=== PATIENT | male | born 1960 | race Caucasian/White ===

== ENCOUNTER 2016-05-09 10:35 | Emergency (ER) | payer BC ==
[2016-05-09 10:58] VITALS: RESP 18; TEMP 98.4
[2016-05-09] MEDS ORDERED: SODIUM CHLORIDE 0.9% 1,000 ML IV STA ×2 (11:24)
[2016-05-09] MEDS ORDERED: ONDANSETRON 4 MG/2 ML VIAL IVP STA (11:24)
--- NOTE | 2016-05-09 11:29 | ED ---
General Adult HPI - General Chief complaint: Nausea/Vomiting/Diarrhea Stated complaint: congestion Time Seen by Provider: 05/09/16 11:17 Source: patient, RN notes reviewed Mode of arrival: ambulatory Limitations: no limitations - History of Present Illness Initial comments: Patient 55-year-old male who presents emergency room today with a chief complaint of symptoms of nausea vomiting diarrhea over the last 5 days. Also admits to cough congestion that she started 1 day ago. Patient denies any abdominal pain. He denies any signs of blood in the stool. Admits that he did see some blood and sputum yesterday. States sputum is also been green in color. He denies any other complaints. Patient denies any recent fever, chills , shortness of breath, chest pain, back pain,numbness or tingling, dysuria or hematuria, constipation, headaches or visual changes, or any other complaints. - Related Data Home Medications Medication Instructions Recorded Confirmed Atenolol [Tenormin] 100 mg PO DAILY 05/09/16 05/09/16 Cholecalciferol [Vitamin D3] 1,000 unit PO DAILY 05/09/16 05/09/16 Citalopram Hydrobromide [CeleXA] 40 mg PO DAILY 05/09/16 05/09/16 Ibuprofen [Motrin] 800 mg PO Q8HR PRN 05/09/16 05/09/16 Multivitamins, Thera [Multivitamin 1 tab PO DAILY 05/09/16 05/09/16 (formulary)] Tamsulosin [Flomax] 0.4 mg PO DAILY 05/09/16 05/09/16 Previous Rx's Medication Instructions Recorded Ciprofloxacin HCl [Cipro] 500 mg PO Q12HR #20 day 05/09/16 Ondansetron Odt [Zofran ODT] 4 mg PO Q8HR PRN #20 tab 05/09/16 Allergies Allergy/AdvReac Type Severity Reaction Status Date / Time No Known Allergies Allergy Unverified 05/09/16 11:43 Review of Systems ROS Statement: Those systems with pertinent positive or pertinent negative responses have been documented in the HPI. ROS Other: All systems not noted in ROS Statement are negative. Past Medical History Additional Past Medical History / Comment(s): hard of hearing History of Any Multi-Drug Resistant Organisms: None Reported Additional Past Surgical History / Comment(s): kidney, carpal tunnel Past Psychological History: No Psychological Hx Reported Smoking Status: Never smoker Past Alcohol Use History: None Reported Past Drug Use History: None Reported General Exam - General Exam Comments Initial Comments: General: The patient is awake and alert, in no distress, and does not appear acutely ill. Eye: Pupils are equal, round and reactive to light, extra-ocular movements are intact. No nystagmus. There is normal conjunctiva bilaterally. No signs of icterus. Ears, nose, mouth and throat: There are moist mucous membranes and no oral lesions. Neck: The neck is supple, there is no tenderness or JVD. Cardiovascular: There is a regular rate and rhythm. No murmur, rub or gallop is appreciated. Respiratory: Lungs are clear to auscultation, respirations are non-labored, breath sounds are equal. No wheezes, stridor, rales, or rhonchi. Gastrointestinal: Soft, non-distended, non-tender abdomen without masses or organomegaly noted. There is no rebound or guarding present. No CVA tenderness. Bowel sounds are unremarkable. Musculoskeletal: Normal ROM, no tenderness. Strength 5/5. Sensation intact. Pulses equal bilaterally 2+. Neurological: A&O x 3. CN II-XII intact, There are no obvious motor or sensory deficits. Coordination appears grossly intact. Speech is normal. Skin: Skin is warm and dry and no rashes or lesions are noted. Psychiatric: Cooperative, appropriate mood & affect, normal judgment. Limitations: no limitations Course Vital Signs 05/09/16 05/09/16 10:54 12:42 Temperature 98.4 F Pulse Rate 77 66 Respiratory 18 18 Rate Blood Pressure 117/75 116/67 O2 Sat by Pulse 97 95 Oximetry Medical Decision Making - Medical Decision Making Patient's x-rays reviewed are unremarkable. Patient's labs been reviewed no elevated white count. Patient's analysis shows 9 white cells. Patient's abdomen soft nontender. Patient resting comfortably in the stretcher. Patient given nausea medication go home with. Please use [id number] Imodium. Also started on Cipro cover for urinary tract infection versus prostatitis. Advised follow-up family doctor over the next 2 days or return here in the emergency room if any symptoms increase worsen or for any other concerns. - Lab Data Result diagrams: 05/09/16 11:15 05/09/16 11:15 Lab Results 05/09/16 05/09/16 05/09/16 Range/Units 11:15 11:15 11:45 WBC 5.1 (3.8-10.6) k/uL RBC 4.56 (4.30-5.90) m/uL Hgb 15.2 (13.0-17.5) gm/dL Hct 43.7 (39.0-53.0) % MCV 95.9 (80.0-100.0) fL MCH 33.4 (25.0-35.0) pg MCHC 34.8 (31.0-37.0) g/dL RDW 13.2 (11.5-15.5) % Plt Count 186 (150-450) k/uL Neutrophils % 69 % Lymphocytes % 21 % Monocytes % 6 % Eosinophils % 1 % Basophils % 1 % Neutrophils # 3.5 (1.3-7.7) k/uL Lymphocytes # 1.1 (1.0-4.8) k/uL Monocytes # 0.3 (0-1.0) k/uL Eosinophils # 0.0 (0-0.7) k/uL Basophils # 0.1 (0-0.2) k/uL Sodium 139 (137-145) mmol/L Potassium 4.1 (3.5-5.1) mmol/L Chloride 105 (98-107) mmol/L Carbon Dioxide 26 (22-30) mmol/L Anion Gap 8 mmol/L BUN 18 (9-20) mg/dL Creatinine 1.01 (0.66-1.25) mg/dL Est GFR (MDRD) Af Amer >60 (>60 ml/min/1.73 sqM) Est GFR (MDRD) Non-Af >60 (>60 ml/min/1.73 sqM) Glucose 89 (74-99) mg/dL Calcium 8.7 (8.4-10.2) mg/dL Total Bilirubin 0.4 (0.2-1.3) mg/dL AST 35 (17-59) U/L ALT 36 (21-72) U/L Alkaline Phosphatase 73 (38-126) U/L Total Protein 6.7 (6.3-8.2) g/dL Albumin 3.7 (3.5-5.0) g/dL Amylase 43 (30-110) U/L Lipase 83 (23-300) U/L Urine Color Yellow Urine Appearance Clear (Clear) Urine pH 5.5 (5.0-8.0) Ur Specific Freeman 1.017 (1.001-1.035) Urine Protein 1+ H (Negative) Urine Glucose (UA) Negative (Negative) Urine Ketones Negative (Negative) Urine Blood Trace H (Negative) Urine Nitrite Negative (Negative) Urine Bilirubin Negative (Negative) Urine Urobilinogen <2.0 (<2.0) mg/dL Ur Leukocyte Esterase Negative (Negative) Urine RBC 3 (0-5) /hpf Urine WBC 9 H (0-5) /hpf Urine Mucus Occasional H (None) /hpf Disposition Clinical Impression: Nausea vomiting and diarrhea Disposition: HOME SELF-CARE Condition: Good Instructions: Acute Nausea and Vomiting (ED) Additional Instructions: Please use medication as discussed. Please follow-up with family doctor in the next 2 days of symptoms have not improved. Please return to emergency room if the symptoms increase or worsen or for any other concerns. Prescriptions: Ciprofloxacin HCl [Cipro] 500 mg PO Q12HR #20 day Ondansetron Odt [Zofran ODT] 4 mg PO Q8HR PRN #20 tab PRN Reason: Nausea Time of Disposition: 13:22
[2016-05-09 11:49] LABS: Basophils # (A) 0.1 k/uL (0-0.2); Basophils % (A) 1 %; CH 33.6; CHCM 35.2; Eosinophils % (A) 1 %; HCT 43.7 % (39.0-53.0); HDW 2.76; HGB 15.2 gm/dL (13.0-17.5); Luc # (Auto) 0.14; Luc % (Auto) 3; Lymphocytes # (A) 1.1 k/uL (1.0-4.8); Lymphocytes % (A) 21 %; MCH 33.4 pg (25.0-35.0); MCHC 34.8 g/dL (31.0-37.0); MCV 95.9 fL (80.0-100.0); Mean Platelet Volume 7.5; Monocytes # (A) 0.3 k/uL (0-1.0); Monocytes % (A) 6 %; Neutrophils # (A) 3.5 k/uL (1.3-7.7); Neutrophils % (A) 69 %; RBC 4.56 m/uL (4.30-5.90); RDW 13.2 % (11.5-15.5); WBC 5.1 k/uL (3.8-10.6); WBC (Perox) 5.11
[2016-05-09 12:02] LABS: Appearance,Urine Clear (Clear); Bilirubin,Urine Negative (Negative); Glucose,Urine (UA) Negative (Negative); Ketones,Urine Negative (Negative); Leukocyte Esterase,Urine Negative (Negative); Mucus,Urine Occasional /hpf; Nitrite,Urine Negative (Negative); PH, Urine 5.5 (5.0-8.0); Particle Count 3728; Protein,Urine 1+ (Negative); RBC,Urine 3 /hpf (0-5); Specific Gravity,Urine 1.017 (1.001-1.035); UA Billing (MACRO vs. MICRO) MICRO; Urobilinogen,Urine <2.0 mg/dL (<2.0); WBC,Urine 9 /hpf (0-5)
[2016-05-09 12:06] LABS: ALT 36 U/L (21-72); AST 35 U/L (17-59); Alkaline Phosphatase 73 U/L (38-126); Amylase 43 U/L (30-110); Anion Gap 8 mmol/L; Blood Urea Nitrogen 18 mg/dL (9-20); Calcium 8.7 mg/dL (8.4-10.2); Carbon Dioxide 26 mmol/L (22-30); Chloride 105 mmol/L (98-107); Glucose 89 mg/dL (74-99); Non-African American GFR(MDRD) >60 (>60 ml/min/1.73 sqM); Potassium 4.1 mmol/L (3.5-5.1); Sodium 139 mmol/L (137-145); Total Bilirubin 0.4 mg/dL (0.2-1.3); Total Protein 6.7 g/dL (6.3-8.2)
[2016-05-09 12:43] VITALS: BP 116/67; PULSE 66
--- NOTE | 2016-05-09 12:54 | XR ---
EXAMINATION TYPE: XR chest 2V DATE OF EXAM: 05/09/2016 12:42 PM COMPARISON: NONE TECHNIQUE: PA and lateral views submitted. HISTORY: Nausea and vomiting FINDINGS: The lungs are clear and there is no pneumothorax, pleural effusion, or focal pneumonia. Biapical pl eural thickening. IMPRESSION: 1. No acute process.
--- NOTE | 2016-05-09 12:56 | XR ---
EXAMINATION TYPE: XR KUB DATE OF EXAM: 05/09/2016 12:42 PM COMPARISON: NONE HISTORY: Nausea and vomiting TECHNIQUE: One view abdominal series FINDINGS: The osseous structures are intact. The bowel gas pattern is nonspecific. 6 mm calcification right up per quadrant could be related the kidney or gallbladder. Scoliotic curvature. IMPRESSION: 1. Nonspecific abdomen. 6 mm right upper quadrant calcification may be related to a kidney stone or gallstone. Correlate clinically.
== END 2016-05-09 13:32 | disposition home or self-care (01) ==
LOC: EC 10:35
DX: R11.2 Nausea with vomiting, unspecified (principal); R19.7 Diarrhea, unspecified; Z79.899 Other long term (current) drug therapy
CPT/HCPCS: 99284; 96374; 96361 ×2; 36415; 80053; 82150; 83690; 85025; 81001; 71020; 74000; J2405

== ENCOUNTER 2017-10-01 07:52 | Day surgery (SDC) | payer BC ==
[2017-09-29 12:25] VITALS: BMI 25.8
[~2017-10-01 07:52] MED LIST: LACTATED RINGERS 1,000 ML IV SCH; LIDOCAINE 1% 20 ML VIAL (10MG/ML) FOR IV START INTRADERMA PRN
[2017-10-01 08:58] VITALS: TEMP 97.2
[2017-10-01] MEDS ORDERED: PROPOFOL 10 MG/ML 20 ML VIAL IV ONE (09:49)
--- NOTE | 2017-10-01 10:08 | P.PCN ---
Date of Procedure: 10/01/17 Procedure(s) Performed: BRIEF HISTORY: Patient is a 57-year-old pleasant male, scheduled for an elective colonoscopy as a part of variation of prior history of colon polyps and family history of colon cancer. His father was diagnosed with colon cancer at age 75. PROCEDURE PERFORMED: Colonoscopy. PREOPERATIVE DIAGNOSIS: History of colon polyps and family history of colon cancer. IV sedation per Anesthesia. PROCEDURE: After informed consent was obtained, the patient, was brought into the endoscopy unit. IV sedation was administered by Anesthesia under continuous monitoring. Digital rectal examination was normal. Initially the Olympus CF- 160 flexible video colonoscope was then inserted in the rectum, gradually advanced into the cecum without any difficulty. Careful examination was performed as the scope was gradually being withdrawn. Ileocecal valve and the appendiceal orifice were visualized and appeared normal. Prep was excellent. Mucosa of the cecum, ascending colon, transverse colon, descending colon, sigmoid colon, and rectum appeared normal. Retroflexion was performed in the rectum and no lesions were seen. The patient tolerated the procedure well. IMPRESSION: Normal-appearing colon from rectum to cecum with no evidence of colorectal neoplasia. RECOMMENDATIONS: Findings of this examination were discussed with the patient as well as his family. He was advised to have a repeat surveillance colonoscopy in 5 years from now because of the prior history of colon polyps and family history of colon cancer.
[2017-10-01 10:12] VITALS: RESP 16
[2017-10-01 10:39] VITALS: BP 124/73; PULSE 67
== END 2017-10-01 10:44 | disposition home or self-care (01) ==
LOC: ORWHC2ENDO 07:52
PROVIDERS: ATTEND Internal Medicine Gastroenterology
DX: Z12.11 Encounter for screening for malignant neoplasm of colon (principal); Z86.010 Personal history of colon polyps; Z80.0 Family history of malignant neoplasm of digestive organs; Z79.899 Other long term (current) drug therapy; I10 Essential (primary) hypertension; Z87.442 Personal history of urinary calculi; N42.9 Disorder of prostate, unspecified; F41.9 Anxiety disorder, unspecified; F32.9 Major depressive disorder, single episode, unspecified; H91.90 Unspecified hearing loss, unspecified ear
CPT/HCPCS: J2704; G0105; 45378

== ENCOUNTER 2019-06-11 18:24 | Emergency (ER) | payer BC ==
[2019-06-11] MEDS ORDERED: LIDOCAINE 1% INJ 10MG/ML (20 ML MDV) SQ ONE (18:45)
[2019-06-11] MEDS ORDERED: DIPH,PERTUS(ACELL)TETVAC-LF 0.5 ML VIAL IM ONE (18:45)
--- NOTE | 2019-06-11 18:45 | ED ---
Wound/Laceration HPI - General Chief Complaint: Wound/Laceration Stated Complaint: Finger laceration Time Seen by Provider: 06/11/19 18:37 Source: patient Mode of arrival: ambulatory Limitations: no limitations - History of Present Illness Initial Comments: Patient is a 58-year-old male presenting to emergency Department with complaints of a laceration to his left thumb. Patient states he was cutting laminate tiles when his utility knife slipped and he cut his left thumb. He denies being on blood thinners. Bleeding is controlled at this time. He does not remember his last tetanus vaccine. He denies fever or chills. He has no other complaints at this time. - Related Data Home Medications Medication Instructions Recorded Confirmed Citalopram Hydrobromide [CeleXA] 40 mg PO DAILY 05/09/16 10/01/17 Multivitamins, Thera [Multivitamin 1 tab PO DAILY 05/09/16 10/01/17 (formulary)] Tamsulosin [Flomax] 0.4 mg PO DAILY 05/09/16 10/01/17 Anacin Af 1 tab PO DAILY PRN 09/29/17 10/01/17 Metoprolol Tartrate [Lopressor] 100 mg PO DAILY 09/29/17 10/01/17 Previous Rx's Medication Instructions Recorded Cephalexin [Keflex] 500 mg PO Q6HR 3 Days #12 cap 06/11/19 Allergies Allergy/AdvReac Type Severity Reaction Status Date / Time No Known Allergies Allergy Verified 06/11/19 18:30 Review of Systems ROS Statement: Those systems with pertinent positive or pertinent negative responses have been documented in the HPI. ROS Other: All systems not noted in ROS Statement are negative. Past Medical History Past Medical History: Hearing Disorder / Deafness, Hypertension, Prostate Disorder Additional Past Medical History / Comment(s): hard of hearing, kidney stones, occasional rectal bldg History of Any Multi-Drug Resistant Organisms: None Reported Past Surgical History: Orthopedic Surgery Additional Past Surgical History / Comment(s): cystoscopy w/stents, carpal tunnel Past Anesthesia/Blood Transfusion Reactions: No Reported Reaction Past Psychological History: Anxiety, Depression Smoking Status: Never smoker Past Alcohol Use History: None Reported Past Drug Use History: None Reported - Past Family History Mother Family Medical History: No Reported History General Exam - General Exam Comments Initial Comments: GENERAL: Well-appearing, well-nourished and in no acute distress. HEAD: Atraumatic, normocephalic. EYES: Pupils equal round and reactive to light, extraocular movements intact, sclera anicteric, conjunctiva are normal. ENT: Moist mucous membranes. NECK: Normal range of motion, supple without lymphadenopathy or JVD. LUNGS: Breath sounds clear to auscultation bilaterally and equal. No wheezes rales or rhonchi. HEART: Regular rate and rhythm without murmurs, rubs or gallops. ABDOMEN: Soft, nontender, normoactive bowel sounds. No guarding, no rebound. No masses appreciated. : Deferred EXTREMITIES: Normal range of motion, no pitting or edema. No clubbing or cyanosis. NEUROLOGICAL: Normal speech, normal gait. PSYCH: Normal mood, normal affect. SKIN: Warm, Dry, normal turgor, no rashes. Patient has an approximate 2 cm, C-shaped laceration to the palmar aspect of the distal portion of left thumb. There is no nail involvement. Bleeding is controlled. Limitations: no limitations Course Vital Signs 06/11/19 06/11/19 18:28 20:02 Temperature 98.1 F 98.2 F Pulse Rate 77 74 Respiratory 18 16 Rate Blood Pressure 161/94 138/86 O2 Sat by Pulse 97 98 Oximetry Procedures - Laceration Laceration #1 Consent Obtained: verbal consent Indication: laceration Site: other (Left thumb, palmar aspect) Size (cm): 2 Description: flap (C-shaped) Depth: simple, single layer Anesthetic Used: lidocaine 1% Anesthesia Technique: local infiltration Amount (mls): 3 Pre-repair: irrigated extensively Type of Sutures: nylon Size of Sutures: 5-0 Number of Sutures: 6 Technique: simple, interrupted Patient Tolerated Procedure: well Medical Decision Making - Medical Decision Making Patient is a 58-year-old male presenting with a 2 cm, C-shaped laceration to the distal end of the left thumb, palmar aspect. No nail involvement. Patient's tetanus vaccine was updated today. Patient's wound was cleaned, closed with 6, 5-0 sutures. Patient tolerated procedure well. He will be placed on antibiotics. Patient is in agreement this plan of care. He will have sutures removed in 7-10 days. Return parameters were discussed the patient he verbalizes understanding. Disposition Clinical Impression: Laceration of left thumb Disposition: HOME SELF-CARE Condition: Stable Instructions (If sedation given, give patient instructions): Care For Your Stitches (ED) Additional Instructions: Please return to the Emergency Department if symptoms worsen or any other concerns. Sutures need to removed in 7-10 days. Take antibiotic as prescribed. Keep wound clean and dry. Cover when working. Prescriptions: Cephalexin [Keflex] 500 mg PO Q6HR 3 Days #12 cap Is patient prescribed a controlled substance at d/c from ED?: No Referrals: Arnav Callejas MD [Primary Care Provider] - 1-2 days
[2019-06-11 20:03] VITALS: BP 138/86; PULSE 74; RESP 16; TEMP 98.2
== END 2019-06-11 20:04 | disposition home or self-care (01) ==
LOC: EC 18:24
DX: S61.012A Laceration without foreign body of left thumb without damage to nail, initial encounter (principal); Z23 Encounter for immunization; I10 Essential (primary) hypertension; N42.9 Disorder of prostate, unspecified; H91.90 Unspecified hearing loss, unspecified ear; F41.9 Anxiety disorder, unspecified; F32.9 Major depressive disorder, single episode, unspecified; Z79.899 Other long term (current) drug therapy; W26.0XXA Contact with knife, initial encounter; Y93.89 Activity, other specified; Y92.009 Unspecified place in unspecified non-institutional (private) residence as the place of occurrence of the external cause
CPT/HCPCS: 90715; 90471; 99282; 12001; J2001

== ENCOUNTER 2019-10-25 16:00 | Emergency (ER) | payer BC ==
[2019-10-25 16:14] VITALS: BP 147/86; PULSE 74; RESP 18; TEMP 97.9
[2019-10-25] MEDS ORDERED: PROPARACAINE 0.5% OPHTH DROPS 15 ML BTL LEFT EYE STA (16:39)
[2019-10-25] MEDS ORDERED: FLUORESCEIN STRIPS 1 MG STRIP LEFT EYE ONE (16:39)
[2019-10-25] MEDS ORDERED: MOXIFLOXACIN HCL 0.5% DROPS 3 ML BTL LEFT EYE ONE (17:09)
--- NOTE | 2019-10-25 17:11 | ED ---
Eye Problem HPI - General Chief complaint: Eye Problems Stated complaint: FB left eye Time Seen by Provider: 10/25/19 16:30 Source: patient Mode of arrival: ambulatory Limitations: no limitations - History of Present Illness Initial comments: 59-year-old male patient presents to the emergency department today for evaluation of left eye discomfort and foreign body. Patient states that he was grinding his truck yesterday when he felt something fly into his eye. Patient states that he did attempt to rinse the eye without success. States his been having discomfort through the night and today. He denies any blurred or double vision. Denies any drainage from the eye. Denies any other injuries or concerns. States he has had tetanus vaccine this year. - Related Data Home Medications Medication Instructions Recorded Confirmed Citalopram Hydrobromide [CeleXA] 40 mg PO DAILY 05/09/16 10/01/17 Multivitamins, Thera [Multivitamin 1 tab PO DAILY 05/09/16 10/01/17 (formulary)] Tamsulosin [Flomax] 0.4 mg PO DAILY 05/09/16 10/01/17 Anacin Af 1 tab PO DAILY PRN 09/29/17 10/01/17 Metoprolol Tartrate [Lopressor] 100 mg PO DAILY 09/29/17 10/01/17 Previous Rx's Medication Instructions Recorded Cephalexin [Keflex] 500 mg PO Q6HR 3 Days #12 cap 06/11/19 Allergies Allergy/AdvReac Type Severity Reaction Status Date / Time No Known Allergies Allergy Verified 06/11/19 18:30 Review of Systems ROS Statement: Those systems with pertinent positive or pertinent negative responses have been documented in the HPI. ROS Other: All systems not noted in ROS Statement are negative. Past Medical History Past Medical History: Hearing Disorder / Deafness, Hypertension, Prostate Disorder Additional Past Medical History / Comment(s): hard of hearing, kidney stones, occasional rectal bldg History of Any Multi-Drug Resistant Organisms: None Reported Past Surgical History: Orthopedic Surgery Additional Past Surgical History / Comment(s): cystoscopy w/stents, carpal tunnel Past Anesthesia/Blood Transfusion Reactions: No Reported Reaction Past Psychological History: Anxiety, Depression Smoking Status: Current every day smoker Past Alcohol Use History: None Reported Past Drug Use History: None Reported - Past Family History Mother Family Medical History: No Reported History General Exam Limitations: no limitations General appearance: alert, in no apparent distress, other (This is a well- developed, well-nourished adult male patient in no acute distress. Vital signs upon presentation are temperature 97.9 degrees Fahrenheit, pulse 74, respirations 18, blood pressure 147/86, pulse ox 98% on room air) Eye exam: Present: normal appearance, PERRL, EOMI, other (There is evidence of foreign body to the left eye around 5:00 however the cornea. There is no c onjunctival injection. Fluorescein stain with Wood's lamp examination reveals negative Jerald sign no evidence for corneal abrasion.). Absent: scleral icterus, conjunctival injection, periorbital swelling ENT exam: Present: normal exam, normal oropharynx, mucous membranes moist Respiratory exam: Present: normal lung sounds bilaterally. Absent: respiratory distress, wheezes, rales, rhonchi, stridor Cardiovascular Exam: Present: regular rate, normal rhythm, normal heart sounds. Absent: systolic murmur, diastolic murmur, rubs, gallop, clicks GI/Abdominal exam: Present: soft, normal bowel sounds. Absent: distended, tenderness, guarding, rebound, rigid Neurological exam: Present: alert, oriented X3, CN II-XII intact Psychiatric exam: Present: normal affect, normal mood Skin exam: Present: warm, dry, intact, normal color. Absent: rash Course Vital Signs 10/25/19 16:12 Temperature 97.9 F Pulse Rate 74 Respiratory 18 Rate Blood Pressure 147/86 O2 Sat by Pulse 98 Oximetry Procedures - Forgein Body Removal Eye Site: Left Location in eye(s): 5:00 over the cornea Anesthetic Used: Proparacaine Eye Exam Technique: Jasmine Lamp, Fluorescein Foreign Body Suspected: Metal Forgein Body Removal Technique: Cotton Swab, Algerbrush Remaining Debris: Yes (Rust ring) Patient Tolerated: no complications Medical Decision Making - Medical Decision Making 59-year-old male patient presents to the emergency department today for evaluation of foreign body to the left eye. Physical examination did reveal foreign body noted at 5:00 over the cornea. Fluorescein stain was performed and showed no evidence for abrasion and negative Jerald sign. Was able to remove the foreign body with the Rowe brush however there was a remaining rust ring. We will start patient on Vigamox antibiotic drops. He'll be discharged to follow-up with ophthalmology tomorrow. Return parameters were discussed in detail. He verbalizes understanding and agrees with this plan. Disposition Clinical Impression: Foreign body of left eye Disposition: HOME SELF-CARE Condition: Good Instructions (If sedation given, give patient instructions): Moxifloxacin (Into the eye), Eye Foreign Body (ED) Additional Instructions: Use eye drop three times daily. Follow up tomorrow with ophthalmology. Return to the emergency department immediately for any new, worsening, or concerning symptoms. Is patient prescribed a controlled substance at d/c from ED?: No Referrals: Arnav Callejas MD [Primary Care Provider] - 1-2 days George Marie MD [STAFF PHYSICIAN] - 1-2 days Time of Disposition: 17:11
== END 2019-10-25 17:23 | disposition home or self-care (01) ==
LOC: EC 16:00
DX: T15.92XA Foreign body on external eye, part unspecified, left eye, initial encounter (principal); F41.9 Anxiety disorder, unspecified; F32.9 Major depressive disorder, single episode, unspecified; I10 Essential (primary) hypertension; N42.9 Disorder of prostate, unspecified; F17.200 Nicotine dependence, unspecified, uncomplicated; Z79.899 Other long term (current) drug therapy; W45.8XXA Other foreign body or object entering through skin, initial encounter; Y93.89 Activity, other specified
CPT/HCPCS: 65205; 99283

== ENCOUNTER → 2020-07-26 | Outpatient (CLI) | payer BC ==
--- NOTE | 2020-07-26 10:17 | FL ---
EXAMINATION TYPE: FL UGI air w esophagus DATE OF EXAM: 07/26/2020 COMPARISON: 05/09/2016 HISTORY: Epigastric pain TECHNIQUE: A double contrast UGI study is performed. A total of 2 minutes and 4 seconds of fluorosc opic time was utilized during procedure and 67 images obtained. FINDINGS: The esophagus shows normal motility and emptying into the stomach. No evidence of hiatal hernia or s tricture noted. The stomach shows normal distensibility, peristalsis, and mucosal folds. No evidence of any mass or ulcer disease. There is mild spontaneous gastroesophageal reflux into the lower esophagus. The duodenal bulb, sweep, and proximal small bowel loops are unremarkable. IMPRESSION: Mild, spontaneous gastroesophageal reflux into the lower esophagus.
== END | disposition home or self-care (01) ==
LOC: RADUSWWP 09:03
PROVIDERS: ATTEND Family Medicine
DX: K21.9 Gastro-esophageal reflux disease without esophagitis (principal)
CPT/HCPCS: 74246

== ENCOUNTER 2022-03-01 11:24 | Day surgery (SDC) | payer BC ==
[2022-02-26 11:50] VITALS: BMI 25.8
[~2022-03-01 11:24] MED LIST changes: -LIDOCAINE 1% 20 ML VIAL (10MG/ML) FOR IV START INTRADERMA PRN
[2022-03-01 13:08] VITALS: TEMP 98.2
[2022-03-01] MEDS ORDERED: PROPOFOL 10 MG/ML 20 ML VIAL IV ONE (13:51)
--- NOTE | 2022-03-01 14:11 | P.PCN ---
Date of Procedure: 03/01/22 Procedure(s) Performed: BRIEF HISTORY: Patient is a 61-year-old pleasant white male scheduled for an elective colonoscopy as a part of evaluation of rectal bleeding of 3 days' duration. He has family history of colon cancer diagnosed in his brother at age 65.. PROCEDURE PERFORMED: Colonoscopy. PREOPERATIVE DIAGNOSIS: Intermittent rectal bleeding. IV sedation per Anesthesia. PROCEDURE: After informed consent was obtained, the patient, was brought into the endoscopy unit. IV sedation was administered by Anesthesia under continuous monitoring. Digital rectal examination was normal. Initially the Olympus CF-160 flexible video colonoscope was then inserted in the rectum, gradually advanced into the cecum without any difficulty. Careful examination was performed as the scope was gradually being withdrawn. Ileocecal valve and the appendiceal orifice were visualized and appeared normal. Prep was excellent. Mucosa of the cecum, ascending colon, transverse colon, descending colon, sigmoid colon, and rectum appeared normal. Retroflexion was performed in the rectum and small internal hemorrhoids were seen. The patient tolerated the procedure well. IMPRESSION: Normal-appearing colon from rectum to cecum with no evidence of colorectal neoplasia . Small internal hemorrhoids RECOMMENDATIONS: Findings of this examination were discussed with the patient as well as his family. He was advised to be a high-fiber diet and take fiber supplements a regular basis. Avoid straining and constipation. Recommend repeat screening colonoscopy in 5 years because of family history of colon cancer.
[2022-03-01 14:35] VITALS: BP 113/71; PULSE 61; RESP 20
== END 2022-03-01 15:07 ==
LOC: ORWHC2ENDO 11:24
PROVIDERS: ATTEND Internal Medicine Gastroenterology
DX: K64.8 Other hemorrhoids (principal); Z80.0 Family history of malignant neoplasm of digestive organs; I10 Essential (primary) hypertension; E78.5 Hyperlipidemia, unspecified; N40.0 Benign prostatic hyperplasia without lower urinary tract symptoms; F41.9 Anxiety disorder, unspecified; F32.A Depression, unspecified; Z79.1 Long term (current) use of non-steroidal anti-inflammatories (NSAID); Z79.02 Long term (current) use of antithrombotics/antiplatelets; Z79.83 Long term (current) use of bisphosphonates; Z79.891 Long term (current) use of opiate analgesic; Z79.899 Other long term (current) drug therapy; Z98.890 Other specified postprocedural states
CPT/HCPCS: 45378; J2704

== ENCOUNTER 2022-07-02 14:48 | Emergency (ER) | payer BC ==
[2022-07-02] MEDS ORDERED: LIDOCAINE 1% INJ 10MG/ML (30 ML VIAL-PF) SQ ONE (15:23)
[2022-07-02] MEDS ORDERED: LIDOCAINE/EPINEPHR/TETRACAINE 5 ML BOTTLE TOPICAL ONE (15:59)
--- NOTE | 2022-07-02 16:18 | ED ---
Wound/Laceration HPI - General Chief Complaint: Wound/Laceration Stated Complaint: Rt leg injury Time Seen by Provider: 07/02/22 14:57 Source: patient, RN notes reviewed Mode of arrival: ambulatory Limitations: no limitations - History of Present Illness Initial Comments: This is a 62-year-old male who presents to the emergency department for a laceration of the right leg. He was using a grinding wheel that exploded and a piece of metal caused a laceration to the right thigh. His last tetanus vaccine was a couple of years ago. Pain is controlled at this time. Not taking any blood thinners. Denies any fevers, chills, sore throat, cough, dyspnea, chest pain, palpitations, abdominal pain, nausea, vomiting, diarrhea, back pain, or head aches. - Related Data Home Medications Medication Instructions Recorded Confirmed Citalopram Hydrobromide [CeleXA] 40 mg PO DAILY 05/09/16 03/01/22 Multivitamins, Thera [Multivitamin 1 tab PO DAILY 05/09/16 03/01/22 (formulary)] Tamsulosin [Flomax] 0.4 mg PO DAILY 05/09/16 03/01/22 Metoprolol Tartrate [Lopressor] 100 mg PO DAILY 09/29/17 03/01/22 Anacin 300 Mg 300 mg PO DAILY 02/26/22 03/01/22 Famotidine [Pepcid] 20 mg PO BID 02/26/22 03/01/22 Ibuprofen [Motrin] 800 mg PO DAILY PRN 02/26/22 03/01/22 Magnesium 400 mg PO DAILY 02/26/22 03/01/22 Rosuvastatin [Crestor] 20 mg PO DAILY 02/26/22 03/01/22 Allergies Allergy/AdvReac Type Severity Reaction Status Date / Time No Known Allergies Allergy Verified 07/02/22 14:56 Review of Systems ROS Statement: Those systems with pertinent positive or pertinent negative responses have been documented in the HPI. ROS Other: All systems not noted in ROS Statement are negative. Past Medical History Past Medical History: Hearing Disorder / Deafness, Hyperlipidemia, Hypertension, Prostate Disorder Additional Past Medical History / Comment(s): hard of hearing, kidney stones, BPH., positive blood in stool History of Any Multi-Drug Resistant Organisms: None Reported Past Surgical History: Orthopedic Surgery Additional Past Surgical History / Comment(s): cystoscopy w/stents, carpal tunnel., colonoscopy Past Anesthesia/Blood Transfusion Reactions: No Reported Reaction Past Psychological History: Anxiety, Depression Smoking Status: Never smoker Past Alcohol Use History: None Reported Past Drug Use History: None Reported - Past Family History Mother Family Medical History: No Reported History General Exam Limitations: no limitations General appearance: alert, in no apparent distress Head exam: Present: atraumatic, normocephalic, normal inspection Respiratory exam: Present: normal lung sounds bilaterally. Absent: respiratory distress, wheezes, rales, rhonchi, stridor Cardiovascular Exam: Present: regular rate, normal rhythm, normal heart sounds. Absent: systolic murmur, diastolic murmur, rubs, gallop, clicks Extremities exam: Present: other (4 cm horizontal laceration on the anterior aspect of the right thigh. Active bleeding.) Neurological exam: Present: alert, oriented X3, CN II-XII intact Psychiatric exam: Present: normal affect, normal mood Course Vital Signs 07/02/22 07/02/22 14:54 16:44 Temperature 98.4 F 98.1 F Pulse Rate 67 65 Respiratory 20 16 Rate Blood Pressure 115/79 122/69 O2 Sat by Pulse 99 97 Oximetry Procedures - Laceration Laceration #1 Consent Obtained: verbal consent Indication: laceration Site: lower extremity Size (cm): 4 Description: linear Depth: simple, single layer Anesthetic Used: lidocaine 1% Anesthesia Technique: local infiltration Amount (mls): 5 Pre-repair: wound explored, irrigated extensively Type of Sutures: nylon Size of Sutures: 4-0 Number of Sutures: 4 Technique: simple, interrupted Medical Decision Making - Medical Decision Making This is a 62-year-old male who presents to the emergency department for a laceration to the right leg. Was pt. sent in by a medical professional or institution? @ -No Did you speak to anyone other than the patient for history? @ -No Did you review nursing and triage notes? @ -Yes, and I agree, it is accurate with regards to the patient's symptoms. Were old charts reviewed? @ -No Differential Diagnosis? @ -Not applicable EKG interpreted by me (3pts min.)? @ -Not obtained X-rays interpreted by me (1pt min.)? @ -Not obtained CT interpreted by me (1pt min.)? @ -Not obtained U/S interpreted by me (1pt. min.)? @ -Not obtained What testing was considered but not performed? (CT, X-rays, U/S, labs)? Why? @ -None What meds were considered but not given? Why? @ -None Did you discuss the management of the patient with other professionals? @ -No Did you reconcile home meds? @ -No Was smoking cessation discussed for >3mins.? @ -No Was critical care preformed (if so, how long)? @ -No Were there social determinants of health that impacted care today? How? (Homelessness, low income, unemployed, alcoholism, drug addiction, transportation, low edu. Level, literacy, decrease access to med. care, assisted, rehab)? @ -No Was there de-escalation of care discussed even if they declined? (Discuss DNR or withdrawal of care, Hospice)? @ -No What co-morbidities impacted this encounter? (DM, HTN, Smoking, COPD, CAD, Cancer, CVA, Hep., AIDS, mental health diagnosis, sleep apnea, morbid obesity)? @ -None Was patient admitted / discharged? @ -Discharged. The laceration was repaired with sutures. Tetanus status was up-to-date. Following suture placement, he continued to have some bleeding. We subsequently applied LET on top of the wound for 10-15 minutes. Afterwards, the bleeding stopped. The wound was bandaged appropriately. He is instructed to return in 7-10 days for suture removal. Advised ibuprofen and Tylenol as needed for pain relief. Undiagnosed new problem with uncertain prognosis? @ -None Drug Therapy requiring intensive monitoring for toxicity (Heparin, Nitro, Insulin, Cardizem)? @ -None Were any procedures done? @ -Yes, laceration repair with sutures. Diagnosis/symptom? @ -Laceration Acute, or Chronic, or Acute on Chronic? @ -Acute Uncomplicated (without systemic symptoms) or Complicated (systemic symptoms)? @ -Uncomplicated Side effects of treatment? @ -None Exacerbation, Progression, or Severe Exacerbation] @ -Not applicable Poses a threat to life or bodily function? @ -No Return precautions reviewed in depth, the patient is instructed to return to the emergency department with any new, worsening, or concerning symptoms. Patient verbalized understanding. This case was discussed in detail with the attending ED physician, Dr. Jara. Presentation, findings, and treatment plan discussed in detail as well. Disposition Clinical Impression: Laceration Disposition: HOME SELF-CARE Instructions (If sedation given, give patient instructions): Care For Your Stitches (ED) Additional Instructions: Return to the emergency department with any new, worsening, or concerning symptoms and in 7-10 days for removal of the stitches. Alternate with ibuprofen and Tylenol as needed for pain relief. Is patient prescribed a controlled substance at d/c from ED?: No Referrals: Arnav Callejas MD [Primary Care Provider] - 1-2 days
[2022-07-02 16:46] VITALS: BP 122/69; PULSE 65; RESP 16; TEMP 98.1
== END 2022-07-02 16:45 | disposition home or self-care (01) ==
LOC: EC 14:48
DX: S71.111A Laceration without foreign body, right thigh, initial encounter (principal); I10 Essential (primary) hypertension; E78.5 Hyperlipidemia, unspecified; N40.0 Benign prostatic hyperplasia without lower urinary tract symptoms; F32.A Depression, unspecified; F41.9 Anxiety disorder, unspecified; Z79.899 Other long term (current) drug therapy; W26.8XXA Contact with other sharp object(s), not elsewhere classified, initial encounter
CPT/HCPCS: 12002; 99282; J2001

== ENCOUNTER 2023-09-02 09:51 | Inpatient (IN) | payer BC ==
--- NOTE | 2023-09-02 10:12 | ED ---
Abdominal Pain HPI - General Chief Complaint: Abdominal Pain Stated Complaint: Abdominal Pain Time Seen by Provider: 09/02/23 10:10 Source: patient, RN notes reviewed Mode of arrival: ambulatory Limitations: no limitations - History of Present Illness Initial Comments: 63-year-old male presented to the ER with a chief complaint of right lower quadrant abdominal pain. Patient sent in by Dr. Callejas for evaluation to rule out appendicitis. Patient states since Friday he has been having a sharp right lower quadrant abdominal pain with radiation to his right lower back. He also is reporting nausea and dry heaves. Denies any episodes of emesis. He does report Friday night he had an episode of diarrhea. He denies any melena or hematochezia. He does report a decreased appetite stating he is only ate a half a bowl of cereal this morning around 4 AM. He endorses chills and mild low- grade fevers since Friday. He denies any chest pain, shortness of breath, headache, cough, congestion, urinary complaints or peripheral edema. - Related Data Home Medications Medication Instructions Recorded Confirmed Citalopram Hydrobromide [CeleXA] 40 mg PO DAILY 05/09/16 03/01/22 Multivitamins, Thera [Multivitamin 1 tab PO DAILY 05/09/16 03/01/22 (formulary)] Tamsulosin [Flomax] 0.4 mg PO DAILY 05/09/16 03/01/22 Metoprolol Tartrate [Lopressor] 100 mg PO DAILY 09/29/17 03/01/22 Anacin 300 Mg 300 mg PO DAILY 02/26/22 03/01/22 Famotidine [Pepcid] 20 mg PO BID 02/26/22 03/01/22 Ibuprofen [Motrin] 800 mg PO DAILY PRN 02/26/22 03/01/22 Magnesium 400 mg PO DAILY 02/26/22 03/01/22 Rosuvastatin [Crestor] 20 mg PO DAILY 02/26/22 03/01/22 Allergies Allergy/AdvReac Type Severity Reaction Status Date / Time No Known Allergies Allergy Verified 09/02/23 11:53 Review of Systems ROS Statement: Those systems with pertinent positive or pertinent negative responses have been documented in the HPI. ROS Other: All systems not noted in ROS Statement are negative. Past Medical History Past Medical History: Hearing Disorder / Deafness, Hyperlipidemia, Hypertension, Prostate Disorder Additional Past Medical History / Comment(s): hard of hearing, kidney stones, BPH., positive blood in stool History of Any Multi-Drug Resistant Organisms: None Reported Past Surgical History: Orthopedic Surgery Additional Past Surgical History / Comment(s): cystoscopy w/stents, carpal tunnel., colonoscopy Past Anesthesia/Blood Transfusion Reactions: No Reported Reaction Past Psychological History: Anxiety, Depression Smoking Status: Never smoker Past Alcohol Use History: None Reported Past Drug Use History: None Reported - Past Family History Mother Family Medical History: No Reported History General Exam Limitations: no limitations General appearance: alert, in no apparent distress Respiratory exam: Present: normal lung sounds bilaterally. Absent: respiratory distress, wheezes, rales, rhonchi, stridor Cardiovascular Exam: Present: regular rate, normal rhythm, normal heart sounds. Absent: systolic murmur, diastolic murmur, rubs, gallop, clicks GI/Abdominal exam: Present: soft, tenderness (Right lower quadrant. Positive Garza sign positive Rovsing sign. No rebound or guarding), normal bowel sounds Extremities exam: Present: normal inspection, full ROM, normal capillary refill. Absent: tenderness, pedal edema, joint swelling, calf tenderness Neurological exam: Present: alert, oriented X3, CN II-XII intact Skin exam: Present: warm, dry, intact, normal color. Absent: rash Course Vital Signs 09/02/23 09/02/23 09:57 11:49 Temperature 98.0 F 98.0 F Pulse Rate 55 L 79 Respiratory 18 16 Rate Blood Pressure 103/65 119/80 O2 Sat by Pulse 96 99 Oximetry - Reevaluation(s) Reevaluation #1: 09/02/23 11:35 Case discussed with medical practitioners general surgeon, Dr. Hallman, accepts admission. Medical Decision Making - Medical Decision Making Was pt. sent in by a medical professional or institution (, PA, HOME HOSPICE AIDE, urgent care, hospital, or snf...) When possible be specific @ -Patient sent in by PCP for evaluation of right lower quadrant abdominal pain. Did you speak to anyone other than the patient for history (EMS, parent, family, police, friend...)? What history was obtained from this source @ -No Did you review nursing and triage notes (agree or disagree)? Why? @ -I reviewed and agree with nursing and triage notes Were old charts reviewed (outside hosp., previous admission, EMS record, old EKG, old radiological studies, urgent care reports/EKG's, snf records)? Report findings @ -No old charts were reviewed Differential Diagnosis (chest pain, altered mental status, abdominal pain women, abdominal pain men, vaginal bleeding, weakness, fever, dyspnea, syncope, headache, dizziness, GI bleed, back pain, seizure, CVA, palpatations, mental health, musculoskeletal)? @ -Differential Abdominal Pain Men:Appendicitis, cholecystitis, diverticulosis, ischemic bowel, pancreatitis, hepatitis, UTI, gastroenteritis, AAA, incarcerated hernia, bowel obstruction, constipation, inflammatory bowel, hepatitis, peptic ulcer disease, splenic infarction, perforated viscus, testicular torsion, this is not meant to be an all-inclusive list EKG interpreted by me (3pts min.). @ -None X-rays interpreted by me (1pt min.). @ -None done CT interpreted by me (1pt min.). @ -CT abdomen pelvis showing findings consistent with acute uncomplicated appendicitis. U/S interpreted by me (1pt. min.). @ -None done What testing was considered but not performed or refused? (CT, X-rays, U/S, lab s)? Why? @ -None What meds were considered but not given or refused? Why? @ -None Did you discuss the management of the patient with other professionals (professionals i.e. , PA, HOME HOSPICE AIDE, lab, RT, psych nurse, social service assistant, metal off bearer, teacher, state wildlife officer, employment case manager)? Give summary @ -Yes, case discussed with Dr. Hallman who accepts admission. Was smoking cessation discussed for >3mins.? @ -No Was critical care preformed (if so, how long)? @ -No Were there social determinants of health that impacted care today? How? (Homelessness, low income, unemployed, alcoholism, drug addiction, alanis sportation, low edu. Level, literacy, decrease access to med. care, [facility], rehab)? @ -No Was there de-escalation of care discussed even if they declined (Discuss DNR or withdrawal of care, Hospice)? DNR status @ -No What co-morbidities impacted this encounter? (DM, HTN, Smoking, COPD, CAD, Cancer, CVA, ARF, Chemo, Hep., AIDS, mental health diagnosis, sleep apnea, morbid obesity)? @ -Hypertension, hyperlipidemia Was patient admitted / discharged? Hospital course, mention meds given and route, prescriptions, significant lab abnormalities, going to OR and other pertinent info. @ - To OR. 63-year-old male presented to the ER with a chief complaint of right lower quadrant abdominal pain. Patient sent in by PCP for evaluation. History and physical exam completed. Vitals stable. Patient in no signs of acute distress and nontoxic-appearing. Focal right lower quadrant abdominal pain. Positive Rovsing's sign. No rebound or guarding. Normal bowel sounds. Laboratory studies obtained remarkable for leukocytosis WBC 16.5 with left shift. JADON (BUN 22, creatinine 1.26). Lactic 1.7. CT abdomen pelvis significant for findings consistent with acute uncomplicated appendicitis. Patient received IV fluids, Toradol, Dilaudid, and Zofran in the ER. Admission considered for appendicitis. Case discussed with on-call general surgeon, , accepts admission. Blood cultures obtained. Patient will be started on Zosyn. Patient agreeable for admission. Patient admitted in stable condition for further care and treatment. Case discussed with ED attending, Dr. Retana. Undiagnosed new problem with uncertain prognosis? @ -No Drug Therapy requiring intensive monitoring for toxicity (Heparin, Nitro, Insulin, Cardizem)? @ -No Were any procedures done? @ -No Diagnosis/symptom? @ -Appendicitis/JADON Acute, or Chronic, or Acute on Chronic? @ -Acute Uncomplicated (without systemic symptoms) or Complicated (systemic symptoms)? @ -Complicated Side effects of treatment? @ -No Exacerbation, Progression, or Severe Exacerbation? @ -No Poses a threat to life or bodily function? How? (Chest pain, USA, AR, pneumonia, PE, COPD, DKA, ARF, appy, cholecystitis, CVA, Diverticulitis, Homicidal, Suicidal, threat to staff... and all critical care pts) @ -Yes, appendicitis can lead to bowel perforation and/or sepsis. - Lab Data Result diagrams: 09/02/23 10:23 09/02/23 10:23 Lab Results 09/02/23 09/02/23 09/02/23 Range/Units 10:23 10: 10:23 WBC 16.5 H (3.8-10.6) k/uL RBC 4.13 L (4.30-5.90) m/uL Hgb 13.9 (13.0-17.5) gm/dL Hct 40.7 (39.0-53.0) % MCV 98.4 (80.0-100.0) fL MCH 33.7 (25.0-35.0) pg MCHC 34.2 (31.0-37.0) g/dL RDW 12.5 (11.5-15.5) % Plt Count 156 (150-450) k/uL MPV 7.1 Neutrophils % 82 % Lymphocytes % 10 % Monocytes % 5 % Eosinophils % 1 % Basophils % 0 % Neutrophils # 13.6 H (1.3-7.7) k/uL Lymphocytes # 1.6 (1.0-4.8) k/uL Monocytes # 0.8 (0-1.0) k/uL Eosinophils # 0.2 (0-0.7) k/uL Basophils # 0.1 (0-0.2) k/uL Sodium 137 (137-145) mmol/L Potassium 3.9 (3.5-5.1) mmol/L Chloride 101 (98-107) mmol/L Carbon Dioxide 29 (22-30) mmol/L Anion Gap 7 mmol/L BUN 22 H (9-20) mg/dL Creatinine 1.26 H (0.66-1.25) mg/dL Est GFR (CKD-EPI)AfAm 69 (>60 ml/min/1.73 sqM) Est GFR (CKD-EPI)NonAf 60 (>60 ml/min/1.73 sqM) Glucose 104 H (74-99) mg/dL Plasma Lactic Acid Fabrice 1.7 (0.7-2.0) mmol/L Calcium 9.1 (8.4-10.2) mg/dL Total Bilirubin 1.4 H (0.2-1.3) mg/dL AST 25 (17-59) U/L ALT 20 (4-49) U/L Alkaline Phosphatase 96 (38-126) U/L Total Protein 6.7 (6.3-8.2) g/dL Albumin 3.9 (3.5-5.0) g/dL Amylase 37 (30-110) U/L Lipase 44 (23-300) U/L Urine Color Urine Appearance (Clear) Urine pH (5.0-8.0) Ur Specific [place] (1.001-1.035) Urine Protein (Negative) Urine Glucose (UA) (Negative) Urine Ketones (Negative) Urine Blood (Negative) Urine Nitrite (Negative) Urine Bilirubin (Negative) Urine Urobilinogen (<2.0) mg/dL Ur Leukocyte Esterase (Negative) 09/02/23 Range/Units 11:36 WBC (3.8-10.6) k/uL RBC (4.30-5.90) m/uL Hgb (13.0-17.5) gm/dL Hct (39.0-53.0) % MCV (80.0-100.0) fL MCH (25.0-35.0) pg MCHC (31.0-37.0) g/dL RDW (11.5-15.5) % Plt Count (150-450) k/uL MPV Neutrophils % % Lymphocytes % % Monocytes % % Eosinophils % % Basophils % % Neutrophils # (1.3-7.7) k/uL Lymphocytes # (1.0-4.8) k/uL Monocytes # (0-1.0) k/uL Eosinophils # (0-0.7) k/uL Basophils # (0-0.2) k/uL Sodium (137-145) mmol/L Potassium (3.5-5.1) mmol/L Chloride (98-107) mmol/L Carbon Dioxide (22-30) mmol/L Anion Gap mmol/L BUN (9-20) mg/dL Creatinine (0.66-1.25) mg/dL Est GFR (CKD-EPI)AfAm (>60 ml/min/1.73 sqM) Est GFR (CKD-EPI)NonAf (>60 ml/min/1.73 sqM) Glucose (74-99) mg/dL Plasma Lactic Acid Fabrice (0.7-2.0) mmol/L Calcium (8.4-10.2) mg/dL Total Bilirubin (0.2-1.3) mg/dL AST (17-59) U/L ALT (4-49) U/L Alkaline Phosphatase (38-126) U/L Total Protein (6.3-8.2) g/dL Albumin (3.5-5.0) g/dL Amylase (30-110) U/L Lipase (23-300) U/L Urine Color Yellow Urine Appearance Clear (Clear) Urine pH 5.5 (5.0-8.0) Ur Specific [place]stable 1.042 H (1.001-1.035) Urine Protein Trace H (Negative) Urine Glucose (UA) Negative (Negative) Urine Ketones Negative (Negative) Urine Blood Negative (Negative) Urine Nitrite Negative (Negative) Urine Bilirubin Negative (Negative) Urine Urobilinogen <2.0 (<2.0) mg/dL Ur Leukocyte Esterase Negative (Negative) - Radiology Data Radiology results: report reviewed, image reviewed Disposition Clinical Impression: Acute appendicitis, JADON (acute kidney injury) Disposition: ADMITTED IP TO THIS HOSP Condition: Stable Time of Disposition: 11:15
[2023-09-02 10:34] LABS: Basophils # (A) 0.1 k/uL (0-0.2); Basophils % (A) 0 %; Eosinophils # (A) 0.2 k/uL (0-0.7); Eosinophils % (A) 1 %; HCT 40.7 % (39.0-53.0); HGB 13.9 gm/dL (13.0-17.5); Lymphocytes # (A) 1.6 k/uL (1.0-4.8); Lymphocytes % (A) 10 %; MCH 33.7 pg (25.0-35.0); MCHC 34.2 g/dL (31.0-37.0); MCV 98.4 fL (80.0-100.0); Mean Platelet Volume 7.1; Monocytes # (A) 0.8 k/uL (0-1.0); Monocytes % (A) 5 %; Neutrophils # (A) 13.6 k/uL (1.3-7.7); Neutrophils % (A) 82 %; Platelet Count 156 k/uL (150-450); RBC 4.13 m/uL (4.30-5.90); RDW 12.5 % (11.5-15.5); WBC 16.5 k/uL (3.8-10.6)
[2023-09-02] MEDS: KETOROLAC 15 MG/ML 1 ML VIAL IVP STA (10:50)
[2023-09-02] MEDS: ONDANSETRON 4 MG/2 ML VIAL IVP STA (10:51)
[2023-09-02] MEDS: SODIUM CHLORIDE 0.9% 1,000 ML IV STA (10:53)
[2023-09-02 10:57] LABS: ALT 20 U/L (4-49); AST 25 U/L (17-59); African American GFR (CKD) 69 (>60 ml/min/1.73 sqM); Albumin 3.9 g/dL (3.5-5.0); Alkaline Phosphatase 96 U/L (38-126); Amylase 37 U/L (30-110); Anion Gap 7 mmol/L; Blood Urea Nitrogen 22 mg/dL (9-20); Calcium 9.1 mg/dL (8.4-10.2); Carbon Dioxide 29 mmol/L (22-30); Chloride 101 mmol/L (98-107); Glucose 104 mg/dL (74-99); Lipase 44 U/L (23-300); Non-African American GFR(CKD) 60 (>60 ml/min/1.73 sqM); Potassium 3.9 mmol/L (3.5-5.1); Sodium 137 mmol/L (137-145); Total Bilirubin 1.4 mg/dL (0.2-1.3); Total Protein 6.7 g/dL (6.3-8.2)
--- NOTE | 2023-09-02 11:05 | CT ---
EXAMINATION TYPE: CT abdomen pelvis w con CT DLP: 758 mGycm, Automated exposure control for dose reduction was used. DATE OF EXAM: 09/02/2023 10:53 AM COMPARISON: No direct comparisons. CLINICAL INDICATION:Male, 63 years old with history of RLQ abd pain; RLQ pain TECHNIQUE: Standard CT of the abdomen and pelvis following the administration of 100 cc of Isovue 3 00 IV contrast material. Coronal and sagittal reformats were performed. FINDINGS: LOWER CHEST: Posterior dependent subsegmental atelectasis is noted. ABDOMEN LIVER: Unremarkable GALLBLADDER AND BILE DUCTS: Unremarkable. PANCREAS: Unremarkable. SPLEEN: Unremarkable. ADRENAL GLANDS: Unremarkable. KIDNEYS AND URETERS: No evidence of hydronephrosis. Nonobstructive right mid kidney 9 mm calculus. Th e kidneys enhance symmetrically. Bilateral extra renal pelvises. Contrast is demonstrated within both collecting systems on the delayed phase. PELVIS BLADDER: Unremarkable REPRODUCTIVE: Unremarkable. ABDOMEN & PELVIS STOMACH AND BOWEL: Stomach and duodenum are unremarkable. Dilated appendix measuring up to 1.3 cm wit h appendicoliths identified within the proximal portion. There is surrounding fat stranding with sing le focus of gas within the distal tip. No evidence of bowel obstruction. PERITONEUM: No evidence of pneumoperitoneum or free fluid. VASCULATURE: No evidence of aortic aneurysm. MUSCULOSKELETAL: No acute osseous abnormalities. Multilevel degenerative disc disease with S-shaped s coliotic curvature. LYMPH NODES: No evidence for lymphadenopathy. SOFT TISSUE/ABDOMINAL WALL: Tiny fat filled umbilical hernia. Small fat filled left inguinal hernia. IMPRESSION: 1. Acute uncomplicated appendicitis. 2. Nonobstructive right renal calculus. Findings called to and discussed with ALEKSANDR Davies at 11:02 AM on 09/02/2023.
[2023-09-02] MEDS ORDERED: NALOXONE 0.4 MG/ML 1 ML VIAL IV PRN ×2 (11:29→12:54)
[2023-09-02] MEDS ORDERED: KETOROLAC 15 MG/ML 1 ML VIAL IVP PRN (11:29)
[2023-09-02] MEDS ORDERED: ONDANSETRON 4 MG/2 ML VIAL IVP PRN (11:29)
[2023-09-02] MEDS: HYDROmorphone 1 MG/ML 1 ML SYRINGE IVP PRN (11:40)
[2023-09-02 11:43] LABS: Appearance,Urine Clear (Clear); Bilirubin,Urine Negative (Negative); Blood,Urine Negative (Negative); Color,Urine Yellow; Glucose,Urine (UA) Negative (Negative); Ketones,Urine Negative (Negative); Leukocyte Esterase,Urine Negative (Negative); Nitrite,Urine Negative (Negative); PH, Urine 5.5 (5.0-8.0); Protein,Urine Trace (Negative); Specific Gravity,Urine 1.042 (1.001-1.035); Urobilinogen,Urine <2.0 mg/dL (<2.0)
[2023-09-02] MEDS: IV FLUID CONTINUATION 1,000 ML IV ONE (11:57)
--- NOTE | 2023-09-02 12:02 | P.GSHP ---
History of Present Illness H&P Date: 09/02/23 Chief Complaint: Right lower quadrant pain Is a 63-year-old male who presents emergency room complaints of a 4-day history of right lower quadrant pain. Patient workup found evidence of acute appendicitis. Past Medical History Past Medical History: Hearing Disorder / Deafness, Hyperlipidemia, Hypertension, Prostate Disorder Additional Past Medical History / Comment(s): hard of hearing, kidney stones, BPH., positive blood in stool History of Any Multi-Drug Resistant Organisms: None Reported Past Surgical History: Orthopedic Surgery Additional Past Surgical History / Comment(s): cystoscopy w/stents, carpal tunnel., colonoscopy Past Anesthesia/Blood Transfusion Reactions: No Reported Reaction Past Psychological History: Anxiety, Depression Smoking Status: Never smoker Past Alcohol Use History: None Reported Past Drug Use History: None Reported - Past Family History Mother Family Medical History: No Reported History Medications and Allergies Home Medications Medication Instructions Recorded Confirmed Type Citalopram Hydrobromide [CeleXA] 40 mg PO DAILY 05/09/16 09/02/23 History Multivitamins, Thera [Multivitamin 1 tab PO DAILY 05/09/16 09/02/23 History (formulary)] Tamsulosin [Flomax] 0.4 mg PO DAILY 05/09/16 09/02/23 History Metoprolol Tartrate [Lopressor] 100 mg PO DAILY 09/29/17 09/02/23 History Anacin 300 Mg 300 mg PO DAILY 02/26/22 09/02/23 History Famotidine [Pepcid] 20 mg PO BID 02/26/22 09/02/23 History Ibuprofen [Motrin] 800 mg PO DAILY PRN 02/26/22 09/02/23 History Magnesium 400 mg PO DAILY 02/26/22 09/02/23 History Rosuvastatin [Crestor] 20 mg PO DAILY 02/26/22 09/02/23 History Allergies Allergy/AdvReac Type Severity Reaction Status Date / Time No Known Allergies Allergy Verified 09/02/23 11:53 Surgical - Exam Vital Signs Temp Pulse Resp BP Pulse Ox 98.0 F 55 L 18 103/65 96 09/02/23 09:57 09/02/23 09:57 09/02/23 09:57 09/02/23 09:57 09/02/23 09:57 - General well developed, well nourished, no distress - Eyes PERRL - ENT normal pinna - Neck no masses - Respiratory normal expansion - Cardiovascular Rhythm: regular - Abdomen Right lower quadrant pain with rebound tenderness Abdomen: soft Results - Labs 09/02/23 10:23 09/02/23 10:23 Abnormal Lab Results - Last 24 Hours (Table) 09/02/23 09/02/23 09/02/23 Range/Units 10: 10: 11:36 WBC 16.5 H (3.8-10.6) k/uL RBC 4.13 L (4.30-5.90) m/uL Neutrophils # 13.6 H (1.3-7.7) k/uL BUN 22 H (9-20) mg/dL Creatinine 1.26 H (0.66-1.25) mg/dL Glucose 104 H (74-99) mg/dL Total Bilirubin 1.4 H (0.2-1.3) mg/dL Ur Specific [place] 1.042 H (1.001-1.035) Urine Protein Trace H (Negative) Diabetes panel 09/02/23 Range/Units 10:23 Sodium 137 (137-145) mmol/L Potassium 3.9 (3.5-5.1) mmol/L Chloride 101 (98-107) mmol/L Carbon Dioxide 29 (22-30) mmol/L BUN 22 H (9-20) mg/dL Creatinine 1.26 H (0.66-1.25) mg/dL Glucose 104 H (74-99) mg/dL Calcium 9.1 (8.4-10.2) mg/dL AST 25 (17-59) U/L ALT 20 (4-49) U/L Alkaline Phosphatase 96 (38-126) U/L Total Protein 6.7 (6.3-8.2) g/dL Albumin 3.9 (3.5-5.0) g/dL Calcium panel 09/02/23 Range/Units 10:23 Calcium 9.1 (8.4-10.2) mg/dL Albumin 3.9 (3.5-5.0) g/dL Pituitary panel 09/02/23 Range/Units 10:23 Sodium 137 (137-145) mmol/L Potassium 3.9 (3.5-5.1) mmol/L Chloride 101 (98-107) mmol/L Carbon Dioxide 29 (22-30) mmol/L BUN 22 H (9-20) mg/dL Creatinine 1.26 H (0.66-1.25) mg/dL Glucose 104 H (74-99) mg/dL Calcium 9.1 (8.4-10.2) mg/dL Adrenal panel 09/02/23 Range/Units 10:23 Sodium 137 (137-145) mmol/L Potassium 3.9 (3.5-5.1) mmol/L Chloride 101 (98-107) mmol/L Carbon Dioxide 29 (22-30) mmol/L BUN 22 H (9-20) mg/dL Creatinine 1.26 H (0.66-1.25) mg/dL Glucose 104 H (74-99) mg/dL Calcium 9.1 (8.4-10.2) mg/dL Total Bilirubin 1.4 H (0.2-1.3) mg/dL AST 25 (17-59) U/L ALT 20 (4-49) U/L Alkaline Phosphatase 96 (38-126) U/L Total Protein 6.7 (6.3-8.2) g/dL Albumin 3.9 (3.5-5.0) g/dL Assessment and Plan Assessment: Acute appendicitis. Will perform laparoscopic appendectomy.
[2023-09-02] MEDS: DEXAMETHASONE SOD PHOSPHATE 4 MG/ML 1 ML VIAL IVP STA (12:06)
[2023-09-02] MEDS: FAMOTIDINE 20 MG/2 ML VIAL IV STA (12:06)
[2023-09-02] MEDS: HEPARIN SODIUM,PORCINE 5,000 UNIT/ML 1 ML VIAL SQ STA (12:07)
[2023-09-02] MEDS: LACTATED RINGERS 1,000 ML BAG IV STA (12:07)
[2023-09-02] MEDS ORDERED: PHENYLEPHRINE-0.9% NACL SYG 1,000 MCG/10 ML SYRINGE ONE (12:09)
[2023-09-02] MEDS ORDERED: PROPOFOL 10 MG/ML 20 ML VIAL IV ONE (12:09)
[2023-09-02] MEDS ORDERED: GLYCOPYRROLATE 0.2 MG/ML 2 ML VIAL ONE (12:09)
[2023-09-02] MEDS ORDERED: fentaNYL (PF) 50 MCG/ML 2 ML AMP ONE (12:09)
[2023-09-02] MEDS ORDERED: ePHEDrine 50 MG/ML 1 ML VIAL ONE (12:09)
[2023-09-02] MEDS ORDERED: NEOSTIGMINE 1 MG/ML 10 ML VIAL ONE (12:09)
[2023-09-02] MEDS ORDERED: WATER FOR INJECTION, STERILE 10 ML VIAL IV ONE (12:09)
[2023-09-02] MEDS ORDERED: SUCCINYLCHOLINE CHLORIDE 200 MG/10 ML VIAL IV ONE (12:09)
[2023-09-02] MEDS ORDERED: KETOROLAC 15 MG/ML 1 ML VIAL ONE (12:09)
[2023-09-02] MEDS ORDERED: ROCURONIUM 10 MG/ML (5 ML VIAL) IV ONE (12:09)
[2023-09-02] MEDS ORDERED: MIDAZOLAM 2 MG/2 ML VIAL ONE (12:09)
[2023-09-02] MEDS: LIDOCAINE 1%-EPI 1:100,000 20 ML VIAL SQ ONE (12:32)
[2023-09-02] MEDS ORDERED: HYDROmorphone 0.5 MG/0.5 ML SYRINGE IVP PRN (12:54)
[2023-09-02] MEDS ORDERED: ACETAMINOPHEN TAB 325 MG TAB PO PRN (12:54)
[2023-09-02] MEDS ORDERED: HYDROmorphone 1 MG/ML 1 ML SYRINGE IVP PRN (12:54)
--- NOTE | 2023-09-02 12:54 | P.OP ---
Date of Procedure: 09/02/23 Preoperative Diagnosis: Acute appendicitis Postoperative Diagnosis: Acute gangrenous E appendicitis with rupture Procedure(s) Performed: Laparoscopic appendectomy Anesthesia: JOHNY Surgeon: Felice Hallman Estimated Blood Loss (ml): 5 Pathology: other (Appendix) Condition: stable Disposition: PACU Operative Findings: Acute gangrenous appendicitis with perforation Description of Procedure: The patient's placed on the operating table in the supine position. The patient received general anesthesia. The abdomen was prepped and draped in the usual sterile fashion. The skin was anesthetized 1% local Xylocaine at the trocar sites. Using an 11 blade the skin was incised at the umbilicus. The umbilicus was grasped with a Villisca clamp and then a Veress needle was placed into the peritoneal cavity. Position of the Veress needle was confirmed with positive drop test. After adequate insufflation a 5 mm trocar was placed into the peritoneal cavity. The abdomen was further insufflated. And then the laparoscope was placed in the peritoneal cavity. Next a 5 mm trocar was placed in the midline suprapubic position. And then a 10 mm trocar was placed in the midline epigastric position. The patient was rotated with the right side up and in Trendelenburg. The appendix was visualized. The appendix appeared to be inflamed and necrotic. The appendix was grasped and then using the Harmonic scissors the mesoappendix was divided. A PDS Endoloop was then placed around the base of the appendix. And then the appendix was divided using Harmonic scissors. The appendix was placed into an Endo Catch and brought out through the 10 mm trocar site. The abdomen was irrigated. There is no bleeding seen. A BISHOP drain was placed in the right paracolic gutter brought through the epigastric port site. The trochars withdrawn. The skin was closed interrupted 3-0 Monocryl suture. Dermabond dressing was applied. Patient was sent to recovery room in stable condition.
[2023-09-02] MEDS: PIPERACILLIN-TAZOBACTAM 3.375 GM in SODIUM CHLORIDE 0.9% 100 ML IVPB STA (14:30)
[2023-09-02] MEDS: SODIUM CHLORIDE 0.9% 1,000 ML IV SCH (16:08)
[2023-09-02] MEDS: KETOROLAC 15 MG/ML 1 ML VIAL IVP SCH (17:21)
[2023-09-02] MEDS: LACTATED RINGERS 1,000 ML IV SCH (17:22)
[2023-09-02] MEDS: METOPROLOL TARTRATE 50 MG TAB PO SCH (23:47)
[2023-09-03] MEDS: HYDROcodone/APAP 5-325MG 1 EACH TAB PO PRN (02:01)
[2023-09-03] MEDS: ATORVASTATIN 40 MG TAB PO SCH (07:51)
[2023-09-03] MEDS: FAMOTIDINE 20 MG TAB PO SCH (07:51)
[2023-09-03] MEDS: CITALOPRAM HYDROBROMIDE 20 MG TAB PO SCH (07:51)
[2023-09-03] MEDS: ENOXAPARIN 40 MG/0.4 ML SYRINGE SQ SCH (07:51)
[2023-09-03 08:29] LABS: Basophils # (A) 0.02 X 10*3/uL (0.00-0.10); Basophils % (A) 0.2 %; Eosinophils # (A) 0 X 10*3/uL (0.04-0.35); Eosinophils % (A) 0 %; HCT 34.2 % (39.6-50.0); HGB 11.8 g/dL (13.0-17.0); Lymphocytes # (A) 0.84 X 10*3/uL (0.90-5.00); Lymphocytes % (A) 6.7 %; MCH 33.6 pg (27.0-32.0); MCHC 34.5 g/dL (32.0-37.0); MCV 97.4 FL (80.0-97.0); Mean Platelet Volume 9.9 FL (9.5-12.2); Monocytes # (A) 0.92 X 10*3/uL (0.20-1.00); Monocytes % (A) 7.4 %; NRBC Per 100 WBC 0 X 10*3/uL (0.00-0.01); Neutrophils # (A) 10.63 X 10*3/uL (1.80-7.70); Platelet Count 145 X 10*3/uL (140-440); RBC 3.51 X 10*6/uL (4.40-5.60); RDW 12.9 % (11.5-14.5)
[2023-09-03] MEDS: TAMSULOSIN 0.4 MG CAP.ER.24H PO ONE (08:30)
[2023-09-03] MEDS: PIPERACILLIN-TAZOBACTAM 3.375 GM in SODIUM CHLORIDE 0.9% 100 ML IVPB SCH (08:31)
[2023-09-03 09:29] LABS: Blood Urea Nitrogen 22.1 mg/dL (9.0-27.0); Calcium 8.3 mg/dL (8.7-10.3); Chloride 98 mmol/L (96-109); Glucose 131 mg/dL (70-110); Potassium 4.2 mmol/L (3.5-5.5); Sodium 135 mmol/L (135-145)
--- NOTE | 2023-09-03 11:26 | XR ---
EXAMINATION TYPE: XR chest 1V portable DATE OF EXAM: 09/03/2023 COMPARISON: 05/09/2016 HISTORY: Shortness of breath TECHNIQUE: Frontal and lateral views of the chest are obtained. FINDINGS: Scattered senescent parenchymal changes noted. Coarse perihilar infiltrates with diminutive lung volumes. More focal infiltrate right lung base. Cor relate for pneumonia. Heart size is stable. Mediastinal structures are stable and grossly unremarkable. No evidence for hilar prominence. Degenerative changes dorsal spine. IMPRESSION: 1. Coarse perihilar infiltrates with diminutive lung volumes. More focal infiltrate right lung base. Correlate for pneumonia.
[2023-09-03] MEDS: IPRATROPIUM-ALBUTEROL 3 ML NEB INHALATION SCH (12:25)
--- NOTE | 2023-09-03 12:35 | P.CONS ---
History of Present Illness - Reason for Consult Consult date: 09/03/23 Medical management - History of Present Illness History of present illness; patient 63-year-old gentleman past medical history significant for hyperlipidemia, urine retention who presented to the ER for abdominal pain. Patient stated he was all right 4 days back when he started not noticing sharp right lower quadrant abdominal pain. Abdominal pain was intermittent, nonradiating, associated with nausea and dry heaves. There was no complaint of any aggravating or relieving factors associated with abdominal pain. There was no complaint of altered bowel movements. Patient was complaining of low-grade fevers and chills. Patient was complaining of loss of appetite. Because of the symptoms, patient came to his PCP office who referred him to the ER for appendicitis rule out Initial lab work done in the ER showed WBC extreme 1 5, hemoglobin 13.9, platelet count 156, sodium 137, potassium 3.9, BUN 22, creatinine 1.26, glucose 104, bilirubin 1.4 CT abdomen pelvis done showed acute uncomplicated appendicitis Patient admitted to the general surgery. Patient underwent laparoscopic appendicectomy. Postoperatively internal medicine team were consulted for medical management REVIEW OF SYSTEMS: CONSTITUTIONAL: No fever, no malaise, no fatigue. HEENT: No recent visual problems or hearing problems. Denied any sore throat. CARDIOVASCULAR: No chest pain, orthopnea, PND, no palpitations, no syncope. PULMONARY: No shortness of breath, no cough, no hemoptysis. GASTROINTESTINAL: As mentioned above NEUROLOGICAL: No headaches, no weakness, no numbness. HEMATOLOGICAL: Denies any bleeding or petechiae. GENITOURINARY: Denies any burning micturition. Complaining of urinary retention, unable to initiate a stream. MUSCULOSKELETAL/RHEUMATOLOGICAL: Denies any joint pain, swelling, or any muscle pain. ENDOCRINE: Denies any polyuria or polydipsia. The rest of the 14-point review of systems is negative. PHYSICAL EXAMINATION: GENERAL: The patient is alert and oriented x3, not in any acute distress. Well developed, well nourished. HEENT: Pupils are round and equally reacting to light. EOMI. No scleral icterus. No conjunctival pallor. Normocephalic, atraumatic. No pharyngeal erythema. No thyromegaly. CARDIOVASCULAR: S1 and S2 present. No murmurs, rubs, or gallops. PULMONARY: Chest is clear to auscultation, no wheezing or crackles. ABDOMEN: Soft, nontender, distended, laparoscopic surgical incision seen MUSCULOSKELETAL: No joint swelling or deformity. EXTREMITIES: No cyanosis, clubbing, or pedal edema. NEUROLOGICAL: Gross neurological examination did not reveal any focal deficits. SKIN: No rashes. Assessment and plan Acute appendicitis JADON Urine retention Acute hypoxic respiratory failure Monitor vital signs Monitor CBC Monitor CMP Continue pain management Continue postop care per surgery Continue antibiotics per surgery DC IV fluids Ordered Johnson Ordered Flomax Aggressive use of I-S Ordered breathing treatments Surgery following Labs and medication were reviewed.. Continue same treatment. Continue with symptomatic treatment. Resume home medication. Monitor labs and vitals. DVT and GI prophylaxis. Further recommendations as per clinical course of the patient Dictation was produced using [employer] dictation software. please excuse any grammatical, word or spelling errors. Past Medical History Past Medical History: Hearing Disorder / Deafness, Hyperlipidemia, Hypertension, Prostate Disorder Additional Past Medical History / Comment(s): hard of hearing, kidney stones, BPH., positive blood in stool History of Any Multi-Drug Resistant Organisms: None Reported Past Surgical History: Orthopedic Surgery Additional Past Surgical History / Comment(s): cystoscopy w/stents, carpal tunnel., colonoscopy Past Anesthesia/Blood Transfusion Reactions: No Reported Reaction Past Psychological History: Anxiety, Depression Smoking Status: Never smoker Past Alcohol Use History: None Reported Past Drug Use History: None Reported - Past Family History Mother Family Medical History: No Reported History Medications and Allergies Home Medications Medication Instructions Recorded Confirmed Type Citalopram Hydrobromide [CeleXA] 40 mg PO DAILY 05/09/16 09/02/23 History Tamsulosin [Flomax] 0.4 mg PO HS 05/09/16 09/02/23 History Metoprolol Tartrate [Lopressor] 100 mg PO HS 09/29/17 09/02/23 History Famotidine [Pepcid] 20 mg PO BID 02/26/22 09/02/23 History Ibuprofen [Motrin] 800 mg PO TID PRN 02/26/22 09/02/23 History Rosuvastatin [Crestor] 20 mg PO DAILY 02/26/22 09/02/23 History Mv-Min/Folic/K1/Lycopen/Lutein 1 tab PO DAILY 09/02/23 09/02/23 History [Centrum Silver Men Tablet] Allergies Allergy/AdvReac Type Severity Reaction Status Date / Time No Known Allergies Allergy Verified 09/02/23 12:27 Physical Exam Vitals: Vital Signs Temp Pulse Resp BP Pulse Ox 09/03/23 11:30 90 L 09/03/23 11:00 20 09/03/23 07:47 91 L 09/03/23 07:19 98.3 F 83 17 117/74 91 L 09/03/23 04:20 20 09/03/23 02:21 98.5 F 107 H 18 117/77 92 L 09/02/23 19:12 99.2 F 107 H 18 125/76 91 L 09/02/23 16:21 79 121/72 94 L 09/02/23 16:06 85 108/71 94 L 09/02/23 15:51 79 112/70 09/02/23 15:36 76 115/71 92 L 09/02/23 15:21 79 124/76 91 L 09/02/23 15:06 79 105/68 90 L 09/02/23 14:51 79 105/67 91 L 09/02/23 14:36 76 99/63 92 L 09/02/23 14:21 98.3 F 88 16 100/62 90 L 09/02/23 13:51 75 18 100/60 93 L 09/02/23 13:36 86 20 104/57 86 L 09/02/23 13:30 16 96 09/02/23 13:21 80 15 110/56 97 09/02/23 13:06 97.6 F 90 16 118/61 95 Intake and Output 09/02/23 09/03/23 09/03/23 22:59 06:59 14:59 Output Total 50 798 Balance -50 -798 Output: Drainage 50 25 Anterior Medial Abdomen 50 25 Urine 595 Straight 575 Post Void Residual 178 Other: # Voids 0 1 Results CBC & Chem 7: 09/03/23 04:24 09/03/23 04:24 Labs: Abnormal Lab Results - Last 24 Hours (Table) 09/03/23 09/03/23 Range/Units 04:24 04:24 WBC 12.50 H (4.50-10.00) X 10*3/uL RBC 3.51 L (4.40-5.60) X 10*6/uL Hgb 11.8 L (13.0-17.0) g/dL Hct 34.2 L (39.6-50.0) % MCV 97.4 H (80.0-97.0) FL MCH 33.6 H (27.0-32.0) pg Immature Gran # 0.09 H (0.00-0.04) X 10*3/uL Neutrophils # 10.63 H (1.80-7.70) X 10*3/uL Lymphocytes # 0.84 L (0.90-5.00) X 10*3/uL Eosinophils # 0 L (0.04-0.35) X 10*3/uL Glucose 131 H (70-110) mg/dL Calcium 8.3 L (8.7-10.3) mg/dL
--- NOTE | 2023-09-03 13:37 | P.PN ---
Subjective Progress Note Date: 09/03/23 CHIEF COMPLAINT: Acute gangrenous appendicitis with rupture HISTORY OF PRESENT ILLNESS: Patient postop day# 1 status post laparoscopic appendectomy. Patient is complaining of abdominal pain. He was having urinary retention. He did require to be straight cath. He is passed a small amount of flatus. Denies any nausea or vomiting. Afebrile. Patient with tachycardia now improved. Patient had described the abdominal pain as spasming. Patient has required increased oxygen at 6 L satting at 90%. Patient having difficulty taking good deep breaths due to abdominal pain. WBC is down from 16.5-12.5 Hgb 11.8 platelets 145 creatinine 1.3 chest x-ray reports coarse perihilar infiltrates and diminutive lung volumes. Correlate for pneumonia. BISHOP drain with 25 mL serosanguineous output PHYSICAL EXAM: VITAL SIGNS: Reviewed. GENERAL: no acute distress. ABDOMEN: Distended. Diffuse tenderness. Incision sites clean dry and intact. NEUROLOGIC: Alert and oriented. Cranial nerves II through XII grossly intact. ASSESSMENT: 1. Acute gangrenous appendicitis with rupture 2. Urinary retention PLAN: -Continue pain management. Pain medications have been adjusted Dilaudid 1 mg every 3 hours PRN with Dilaudid 0.5 mg every 2 hours as needed. Also, continued scheduled Toradol and [place] as needed. Discussed case with Dr. Hallman. At this time he recommends no further imaging. Working on pain control. And will continue to monitor patient -Repeat labs in a.m. -Continue antibiotics -Encourage patient to ambulate -Johnson catheter ordered for urinary retention -Flomax ordered for urinary retention -Continue IV fluid hydration -Continue clear liquid diet -Encourage patient to use incentive spirometer -Nebulizers ordered for shortness of breath -GI prophylaxis Pepcid and DVT prophylaxis Lovenox Physician Windows System Admin note has been reviewed by physician. Signing provider agrees with the documented findings, assessment, and plan of care. Objective - Vital Signs Vital signs: Vital Signs Temp 98.3 F 09/03/23 07:19 Pulse 83 09/03/23 07:19 Resp 20 09/03/23 11:00 BP 117/74 09/03/23 07:19 Pulse Ox 90 L 09/03/23 11:30 FiO2 Intake & Output 09/02/23 09/03/23 09/03/23 18:59 06:59 18:59 Intake Total 850 Output Total 3 848 Balance 847 -848 Weight 79.379 kg Intake: IV 850 Output: Drainage 75 Anterior Medial Abdomen 75 Urine 595 Straight 575 Post Void Residual 178 Estimated Blood Loss 3 Other: # Voids 0 1 - Labs CBC & Chem 7: 09/03/23 04:24 09/03/23 04:24 Labs: Abnormal Lab Results - Last 24 Hours (Table) 09/03/23 09/03/23 Range/Units 04:24 04:24 WBC 12.50 H (4.50-10.00) X 10*3/uL RBC 3.51 L (4.40-5.60) X 10*6/uL Hgb 11.8 L (13.0-17.0) g/dL Hct 34.2 L (39.6-50.0) % MCV 97.4 H (80.0-97.0) FL MCH 33.6 H (27.0-32.0) pg Immature Gran # 0.09 H (0.00-0.04) X 10*3/uL Neutrophils # 10.63 H (1.80-7.70) X 10*3/uL Lymphocytes # 0.84 L (0.90-5.00) X 10*3/uL Eosinophils # 0 L (0.04-0.35) X 10*3/uL Glucose 131 H (70-110) mg/dL Calcium 8.3 L (8.7-10.3) mg/dL
[2023-09-03] MEDS: HYDROmorphone 1 MG/ML 1 ML SYRINGE IVP PRN (13:47)
--- NOTE | 2023-09-03 14:59 | P.CNPUL ---
History of Present Illness Consult date: 09/03/23 Requesting physician: Felice Hallman Reason for consult: dyspnea, hypoxemia, other (Critical care management) Chief complaint: Abdominal pain, shortness of breath History of present illness: This is a very pleasant 63-year-old male patient with a history of hearing disorder, hypertension, BPH, kidney stones, anxiety/depression. Lifelong non- smoker. He had presented here to the emergency room yesterday with a 3-day history of right lower quadrant pain radiating to the right lower back. He also had issues with nausea and dry heaves. Developed chills and low-grade fever. CT scan of the abdomen revealed acute uncomplicated appendicitis. Nonobstructive right renal calculus. White count 12.5. Hemoglobin 11.8. Platelets 145. Sodium 135. Potassium 4.2. Bicarb 25. BUN 22. Creatinine 1.3. Glucose 131. He was taken to the operating room and was found to have acute gangrenous appendicitis with rupture. He had undergone a laparoscopic appendectomy. Postoperative day #1. He started out today requiring oxygen at 2 L/min per nasal cannula. Throughout the day he had becoming more short of breath and he is currently on 10 L high flow nasal cannula. He is also developed significant abdominal discomfort and distention. This is feeling higher than his surgical site pain. Chest x-ray reveals coarse perihilar infiltrates with diminutive lung volumes. More focal infiltrate right lung base. He is on bronchodilators. Antibiotics in the form of Zosyn. Lovenox for DVT prophylaxis. Review of Systems REVIEW OF SYSTEMS: CONSTITUTIONAL: Denies any recent significant weight loss or weight gain. EYES: Denies change in vision. EARS, NOSE, MOUTH, THROAT: Denies headaches, denies sore throat. CARDIOVASCULAR: Denies chest pain, palpitations or syncopal episodes. RESPIRATORY: Positive for shortness of breath, cough, congestion no hemoptysis. GASTROINTESTINAL: Positive for abdominal pain. GENITOURINARY: Denies hematuria, denies infections. MUSKULOSKELETAL: Denies pain, denies swelling. INTEGUMENTARY: Denies rash, denies eczema. NEUROLOGICAL: Denies recent memory loss, no recent seizure activity. PSYCHIATRIC: Denies anxiety, denies depression. HEMATOLOGIC/LYMPHATIC: Denies anemia, denies enlarged lymph nodes. Past Medical History Past Medical History: Hearing Disorder / Deafness, Hyperlipidemia, Hypertension, Prostate Disorder Additional Past Medical History / Comment(s): hard of hearing, kidney stones, BPH., positive blood in stool History of Any Multi-Drug Resistant Organisms: None Reported Past Surgical History: Orthopedic Surgery Additional Past Surgical History / Comment(s): cystoscopy w/stents, carpal tunnel., colonoscopy Past Anesthesia/Blood Transfusion Reactions: No Reported Reaction Past Psychological History: Anxiety, Depression Smoking Status: Never smoker Past Alcohol Use History: None Reported Past Drug Use History: None Reported - Past Family History Mother Family Medical History: No Reported History Medications and Allergies Home Medications Medication Instructions Recorded Confirmed Type Citalopram Hydrobromide [CeleXA] 40 mg PO DAILY 05/09/16 09/02/23 History Tamsulosin [Flomax] 0.4 mg PO HS 05/09/16 09/02/23 History Metoprolol Tartrate [Lopressor] 100 mg PO HS 09/29/17 09/02/23 History Famotidine [Pepcid] 20 mg PO BID 02/26/22 09/02/23 History Ibuprofen [Motrin] 800 mg PO TID PRN 02/26/22 09/02/23 History Rosuvastatin [Crestor] 20 mg PO DAILY 02/26/22 09/02/23 History Mv-Min/Folic/K1/Lycopen/Lutein 1 tab PO DAILY 09/02/23 09/02/23 History [Centrum Silver Men Tablet] Allergies Allergy/AdvReac Type Severity Reaction Status Date / Time No Known Allergies Allergy Verified 09/02/23 12:27 Physical Exam Vitals: Vital Signs Temp Pulse Pulse Resp BP Pulse Ox 09/03/23 14:11 98.2 F 86 18 124/81 96 09/03/23 12:46 99.1 F 96 22 147/87 09/03/23 12:37 96 09/03/23 12:28 92 09/03/23 11:30 98.2 F 176 H 26 H 129/83 92 L 09/03/23 11:00 20 09/03/23 07:47 91 L 09/03/23 07:19 98.3 F 83 17 117/74 91 L 09/03/23 04:20 20 09/03/23 02:21 98.5 F 107 H 18 117/77 92 L 09/02/23 19:12 99.2 F 107 H 18 125/76 91 L 09/02/23 16:21 79 121/72 94 L 09/02/23 16:06 85 108/71 94 L 09/02/23 15:51 79 112/70 09/02/23 15:36 76 115/71 92 L 09/02/23 15:21 79 124/76 91 L 09/02/23 15:06 79 105/68 90 L 09/02/23 14:51 79 105/67 91 L Intake and Output 09/02/23 09/03/23 09/03/23 22:59 06:59 14:59 Output Total 50 798 125 Balance -50 -798 -125 Output: Drainage 50 25 Anterior Medial Abdomen 50 25 Urine 595 125 Straight 575 Post Void Residual 178 Other: # Voids 0 1 GENERAL EXAM: Alert, pleasant 63-year-old male, up in a chair, on 10 L high flow nasal cannula, uncomfortable with abdominal distention and pain. HEAD: Normocephalic. EYES: Normal reaction of pupils, equal size. NOSE: Clear with pink turbinates. THROAT: No erythema or exudates. NECK: No masses, no JVD. CHEST: No chest wall deformity. LUNGS: Equal air entry with few scattered rhonchi. CVS: S1 and S2 normal with no audible murmur, regular rhythm. ABDOMEN: Distended, tender to palpation, incision sites clean and dry, positive guarding and rigidity. SPINE: No scoliosis or deformity SKIN: No rashes CENTRAL NERVOUS SYSTEM: No focal deficits, tone is normal in all 4 extremities. EXTREMITIES: There is no peripheral edema. No clubbing, no cyanosis. Peripheral pulses are intact. Results - Laboratory Findings CBC and BMP: 09/03/23 04:24 09/03/23 04:24 Abnormal lab findings: Abnormal Labs 09/02/23 09/02/23 09/02/23 10:23 10:23 11:36 WBC 16.5 H RBC 4.13 L Hgb Hct MCV MCH Immature Gran # Neutrophils # 13.6 H Lymphocytes # Eosinophils # BUN 22 H Creatinine 1.26 H Glucose 104 H Calcium Total Bilirubin 1.4 H Ur Specific [place] 1.042 H Urine Protein Trace H 09/03/23 09/03/23 04:24 04:24 WBC 12.50 H RBC 3.51 L Hgb 11.8 L Hct 34.2 L MCV 97.4 H MCH 33.6 H Immature Gran # 0.09 H Neutrophils # 10.63 H Lymphocytes # 0.84 L Eosinophils # 0 L BUN Creatinine Glucose 131 H Calcium 8.3 L Total Bilirubin Ur Specific [place] Urine Protein - Diagnostic Findings Chest x-ray: image reviewed Assessment and Plan Assessment: Right lower quadrant abdominal pain in a patient found to have acute gangrenous appendicitis with rupture. Status laparoscopic appendectomy. Postoperative day #1 Acute hypoxemic respiratory failure secondary to low lung volumes, atelectasis due to shallow respirations due to pain Leukocytosis secondary to above History of hearing disorder Benign prostatic hyperplasia Hyperlipidemia Hypertension Anxiety/depression Plan: The patient was seen and evaluated Chest x-ray, labs and medications reviewed Patient has abdominal distention and significant pain CT scan of the abdomen pelvis without contrast Increasing oxygen requirements up to 10 L nasal cannula Continue bronchodilators, Zosyn Add incentive spirometer Will transfer to the intensive care unit for closer monitoring We will continue to follow and make further recommendations based on his clinical status I have personally seen and examined the patient, performed the documentation and the assessment and plan as written. Number of minutes spent on the visit: 20.
[2023-09-03 15:28] LABS: Glucose,Whole Blood 129 mg/dL (70-110)
--- NOTE | 2023-09-03 16:43 | CT ---
EXAMINATION TYPE: CT abdomen pelvis wo con CT DLP: 759.7 mGycm, Automated exposure control for dose reduction was used. DATE OF EXAM: 09/03/2023 3:22 PM COMPARISON: CT abdomen pelvis most recent from CLINICAL INDICATION:Male, 63 years old with history of Acute abdominal pain; RUQ abdominal pain post appendectomy yesterday. TECHNIQUE: Axial CT abdomen pelvis wo con;Sagittal and coronal reformats were created on a separate workstation. Contrast used: mL of , (none if empty) Oral contrast used: without Oral Contrast (none if empty) FINDINGS: LOWER CHEST: Fairly large volume of segmental consolidation with air bronchograms indicating pneumoni a ABDOMEN LIVER: Unremarkable GALLBLADDER AND BILE DUCTS: Unremarkable. PANCREAS: Unremarkable. SPLEEN: Unremarkable. ADRENAL GLANDS: Unremarkable. KIDNEYS AND URETERS: No evidence of hydronephrosis or renal calculus. The ureters are unremarkable. PELVIS BLADDER: Unremarkable REPRODUCTIVE: Unremarkable. ABDOMEN & PELVIS STOMACH AND BOWEL: No evidence of bowel obstruction. PERITONEUM/RETROPERITONEUM: No evidence of pneumoperitoneum or free fluid. VASCULATURE: No evidence of aortic aneurysm. MUSCULOSKELETAL: No acute osseous abnormalities LYMPH NODES: No gross evidence for lymphadenopathy. SOFT TISSUE/ABDOMINAL WALL: Fat-containing left inguinal hernia. IMPRESSION: 1. Fairly prominent areas of consolidating pneumonia in both lung bases. These show air bronchograms . 2. No grossly evident acute process in the abdomen or pelvis.
[2023-09-03] MEDS: TAMSULOSIN 0.4 MG CAP.ER.24H PO SCH (20:21)
[2023-09-04] MEDS: ONDANSETRON 4 MG/2 ML VIAL IVP PRN (03:35)
[2023-09-04 06:47] LABS: Basophils % (A) 0 %; Eosinophils # (A) 0.2 k/uL (0-0.7); Eosinophils % (A) 2 %; HCT 35.6 % (39.0-53.0); HGB 11.9 gm/dL (13.0-17.5); Lymphocytes # (A) 0.7 k/uL (1.0-4.8); Lymphocytes % (A) 6 %; MCH 33.6 pg (25.0-35.0); MCHC 33.5 g/dL (31.0-37.0); MCV 100.3 fL (80.0-100.0); Mean Platelet Volume 7.3; Monocytes # (A) 0.5 k/uL (0-1.0); Monocytes % (A) 4 %; Neutrophils # (A) 9.8 k/uL (1.3-7.7); Neutrophils % (A) 87 %; Platelet Count 178 k/uL (150-450); RBC 3.55 m/uL (4.30-5.90); RDW 12.5 % (11.5-15.5); WBC 11.2 k/uL (3.8-10.6)
[2023-09-04 07:09] LABS: African American GFR (CKD) >90 (>60 ml/min/1.73 sqM); Anion Gap 5 mmol/L; Blood Urea Nitrogen 16 mg/dL (9-20); Calcium 8.5 mg/dL (8.4-10.2); Carbon Dioxide 28 mmol/L (22-30); Chloride 99 mmol/L (98-107); Glucose 106 mg/dL (74-99); Non-African American GFR(CKD) 82 (>60 ml/min/1.73 sqM); Potassium 3.9 mmol/L (3.5-5.1); Sodium 132 mmol/L (137-145)
--- NOTE | 2023-09-04 07:34 | XR ---
EXAMINATION TYPE: XR chest 1V portable DATE OF EXAM: 09/04/2023 HISTORY: Shortness of breath. COMPARISON: 09/03/2023 TECHNIQUE: Single view of the chest is submitted. FINDINGS: Demonstrated are scattered senescent parenchymal change. Redemonstrated are diminished lung volumes. Coarse perihilar infiltrates and basilar opacity persists . Underlying pneumonia not excluded. Follow-up advised. Hilar and mediastinal structures are within normal limits. Degenerative changes are seen of the dorsal spine. IMPRESSION: 1. Redemonstrated are diminished lung volumes. Coarse perihilar infiltrates and basilar opacity pers ists. Underlying pneumonia not excluded. Follow-up advised.
[2023-09-04] MEDS: METOCLOPRAMIDE 5 MG/ML 2 ML VIAL IVP SCH (11:43)
--- NOTE | 2023-09-04 11:49 | P.PN ---
Subjective Progress Note Date: 09/04/23 This is a very pleasant 63-year-old male patient with a history of hearing disorder, hypertension, BPH, kidney stones, anxiety/depression. Lifelong non- smoker. He had presented here to the emergency room yesterday with a 3-day history of right lower quadrant pain radiating to the right lower back. He also had issues with nausea and dry heaves. Developed chills and low-grade fever. CT scan of the abdomen revealed acute uncomplicated appendicitis. Nonobstructive right renal calculus. White count 12.5. Hemoglobin 11.8. Platelets 145. Sodium 135. Potassium 4.2. Bicarb 25. BUN 22. Creatinine 1.3. Glucose 131. He was taken to the operating room and was found to have acute gangrenous appendicitis with rupture. He had undergone a laparoscopic appendectomy. Postoperative day #1. He started out today requiring oxygen at 2 L/min per nasal cannula. Throughout the day he had becoming more short of breath and he is currently on 10 L high flow nasal cannula. He is also developed significant abdominal discomfort and distention. This is feeling higher than his surgical site pain. Chest x-ray reveals coarse perihilar infiltrates with diminutive lung volumes. More focal infiltrate right lung base. He is on bronchodilators. Antibiotics in the form of Zosyn. Lovenox for DVT prophylaxis. The patient is seen today September 04, 2023 in follow-up in the into the intensive care unit. He is currently resting fairly comfortably in bed. Awake and alert in no acute distress. He is maintaining O2 saturations in the mid 90s on 6 L high flow nasal cannula. He has been afebrile. Hemodynamically stable. Still with some right upper quadrant discomfort. Not as bad as yesterday. CT scan of the abdomen and pelvis from yesterday did reveal vicarious excretion of contrast into the gallbladder. A few gas-filled loops of bowel may indicate a limited postoperative ileus. Fairly prominent areas of consolidating pneumonia in the lung bases. Today's chest x-ray shows diminished lung volumes. Coarse perihilar infiltrates and basilar opacity persist. He is tolerating clear liquid diet. Blood cultures reveal no growth. Procalcitonin was 1.73. Troponins were negative x 2. proBNP 664. White count 11.2. Hemoglobin 11.9. Platelets 178. Sodium 132. Potassium 3.9. Bicarb 28. BUN 16. Creatinine 0.98. Glucose 106. He is continued on DuoNeb inhalations. Antibiotics in the form of Zosyn. Lovenox for DVT prophylaxis. Objective - Vital Signs Vital signs: Vital Signs Temp 98.5 F 09/04/23 08:00 Pulse 85 09/04/23 10:00 Resp 19 09/04/23 10:00 BP 126/82 09/04/23 10:00 Pulse Ox 95 09/04/23 10:00 FiO2 Intake & Output 09/03/23 09/04/23 09/04/23 18:59 06:59 18:59 Intake Total 350 1500 695 Output Total 680 560 340 Balance -330 940 355 Weight 90.2 kg Intake: IV 250 Lactated Ringers 1,000 ml 250 @ 125 mls/hr IV .Q8H EDDIE Rx#:[id number] Intake, IV Titration 350 1500 125 Amount Lactated Ringers 1,000 ml 250 1500 125 @ 125 mls/hr IV .Q8H EDDIE Rx#:[id number] Piperacillin-Tazobactam 3 100 .375 gm In Sodium Chloride 0.9% 100 ml @ 25 mls/hr IVPB Q8HR EDDIE Rx# :[id number] Oral 320 Output: Drainage 20 Anterior Medial Abdomen 20 Urine 680 540 340 Straight 275 Other: Voiding Method Indwelling Catheter Indwelling Catheter - Exam GENERAL EXAM: Alert, 63-year-old male, resting in bed, on 6 L high flow nasal cannula, fairly comfortable in no acute distress. HEAD: Normocephalic. EYES: Normal reaction of pupils, equal size. NOSE: Clear with pink turbinates. THROAT: No erythema or exudates. NECK: No masses, no JVD. CHEST: No chest wall deformity. LUNGS: Equal air entry with few scattered rhonchi. CVS: S1 and S2 normal with no audible murmur, regular rhythm. ABDOMEN: Distended, tender to palpation, incision sites clean and dry. SPINE: No scoliosis or deformity SKIN: No rashes CENTRAL NERVOUS SYSTEM: No focal deficits, tone is normal in all 4 extremities. EXTREMITIES: There is no peripheral edema. No clubbing, no cyanosis. Peripheral pulses are intact. - Labs CBC & Chem 7: 09/04/23 05:35 09/04/23 05:35 Labs: Abnormal Lab Results - Last 24 Hours (Table) 09/03/23 09/03/23 09/04/23 Range/Units 13:00 15:26 05:35 WBC 11.2 H (3.8-10.6) k/uL RBC 3.55 L (4.30-5.90) m/uL Hgb 11.9 L (13.0-17.5) gm/dL Hct 35.6 L (39.0-53.0) % MCV 100.3 H (80.0-100.0) fL Neutrophils # 9.8 H (1.3-7.7) k/uL Lymphocytes # 0.7 L (1.0-4.8) k/uL Sodium (137-145) mmol/L Glucose (74-99) mg/dL POC Glucose (mg/dL) 129 H (70-110) mg/dL Procalcitonin 1.73 H (0.02-0.09) ng/mL 09/04/23 Range/Units 05:35 WBC (3.8-10.6) k/uL RBC (4.30-5.90) m/uL Hgb (13.0-17.5) gm/dL Hct (39.0-53.0) % MCV (80.0-100.0) fL Neutrophils # (1.3-7.7) k/uL Lymphocytes # (1.0-4.8) k/uL Sodium 132 L (137-145) mmol/L Glucose 106 H (74-99) mg/dL POC Glucose (mg/dL) (70-110) mg/dL Procalcitonin (0.02-0.09) ng/mL Microbiology - Last 24 Hours (Table) 09/02/23 11:30 Blood Culture - Preliminary Blood 09/02/23 11:47 Blood Culture - Preliminary Blood Assessment and Plan Assessment: Right lower quadrant abdominal pain in a patient found to have acute gangrenous appendicitis with rupture. Status laparoscopic appendectomy. Postoperative day #2. Postoperative CT scan of the abdomen revealed like. A few gas loops of bow el may indicate a limited postoperative ileus. Tolerating clear liquids Acute hypoxemic respiratory failure secondary to low lung volumes, atelectasis due to shallow respirations due to pain, possible aspiration pneumonia, remains on Zosyn Leukocytosis secondary to above History of hearing disorder Benign prostatic hyperplasia Hyperlipidemia Hypertension Anxiety/depression Plan: The patient was seen and evaluated Chest x-ray, labs and medications reviewed CT scan of the abdomen pelvis without contrast reviewed Titrate down the FiO2 as tolerated Continue bronchodilators, Zosyn Encouraged the increased use of the incentive spirometer We will continue to follow I have personally seen and examined the patient, performed the documentation and the assessment and plan as written. Number of minutes spent on the visit: 10.
--- NOTE | 2023-09-04 12:04 | P.PN ---
Subjective Progress Note Date: 09/04/23 patient 63-year-old gentleman past medical history significant for hyperlipidemia, urine retention who presented to the ER for abdominal pain. Patient stated he was all right 4 days back when he started not noticing sharp right lower quadrant abdominal pain. Abdominal pain was intermittent, nonradiating, associated with nausea and dry heaves. There was no complaint of any aggravating or relieving factors associated with abdominal pain. There was no complaint of altered bowel movements. Patient was complaining of low-grade fevers and chills. Patient was complaining of loss of appetite. Because of the symptoms, patient came to his PCP office who referred him to the ER for appendicitis rule out Initial lab work done in the ER showed WBC extreme 1 5, hemoglobin 13.9, platelet count 156, sodium 137, potassium 3.9, BUN 22, creatinine 1.26, glucose 104, bilirubin 1.4 CT abdomen pelvis done showed acute uncomplicated appendicitis Patient admitted to the general surgery. Patient underwent laparoscopic appendicectomy. Postoperatively internal medicine team were consulted for medical management 09/03. Patient seen and examined. Patient currently on 3 L of oxygen. Patient had to be transferred to ICU overnight for closer monitoring because of worsening respiratory status. Patient doing much better this morning. REVIEW OF SYSTEMS: CONSTITUTIONAL: No fever, no malaise,. CARDIOVASCULAR: No chest pain, no palpitations, no syncope. PULMONARY: As mentioned above GASTROINTESTINAL: No diarrhea, no nausea, no vomiting. Abdominal pain is improved NEUROLOGICAL: No headaches, no weakness, PHYSICAL EXAMINATION: GENERAL: The patient is alert and oriented x3, not in any acute distress. Well developed, well nourished. HEENT: Pupils are round and equally reacting to light. EOMI. No scleral icterus. No conjunctival pallor. Normocephalic, atraumatic. No pharyngeal erythema. No thyromegaly. CARDIOVASCULAR: S1 and S2 present. No murmurs, rubs, or gallops. PULMONARY: Chest is clear to auscultation, no wheezing or crackles. ABDOMEN: Soft, nontender, laparoscopic surgical incisions seen MUSCULOSKELETAL: No joint swelling or deformity. EXTREMITIES: No cyanosis, clubbing, or pedal edema. NEUROLOGICAL: Gross neurological examination did not reveal any focal deficits. SKIN: No rashes. Assessment and plan Acute appendicitis status post lap appendicectomy JADON Urine retention Acute hypoxic respiratory failure Leukocytosis secondary to above History of hearing disorder Benign prostatic hyperplasia Hyperlipidemia Hypertension Monitor vital signs Monitor CBC Monitor CMP Continue ox supplementation Aggressive bronchopulmonary hygiene Continue bronchodilators Continue breathing treatments Continue pain management Continue postop care per surgery Continue antibiotics per surgery Continue bladder management protocol Continue Flomax Surgery following ICU follow Labs and medication were reviewed.. Continue same treatment. Continue with symptomatic treatment. Resume home medication. Monitor labs and vitals. DVT and GI prophylaxis. Further recommendations as per clinical course of the patient Dictation was produced using [employer] dictation software. please excuse any grammatical, word or spelling errors. Objective - Vital Signs Vital signs: Vital Signs Temp 98.5 F 09/04/23 08:00 Pulse 87 09/04/23 09:00 Resp 21 09/04/23 09:00 BP 129/78 09/04/23 09:00 Pulse Ox 95 09/04/23 09:00 FiO2 Intake & Output 09/03/23 09/04/23 09/04/23 18:59 06:59 18:59 Intake Total 350 1500 695 Output Total 680 560 340 Balance -330 940 355 Weight 90.2 kg Intake: IV 250 Lactated Ringers 1,000 ml 250 @ 125 mls/hr IV .Q8H EDDIE Rx#:[id number] Intake, IV Titration 350 1500 125 Amount Lactated Ringers 1,000 ml 250 1500 125 @ 125 mls/hr IV .Q8H EDDIE Rx#:[id number] Piperacillin-Tazobactam 3 100 .375 gm In Sodium Chloride 0.9% 100 ml @ 25 mls/hr IVPB Q8HR EDDIE Rx# :[id number] Oral 320 Output: Drainage 20 Anterior Medial Abdomen 20 Urine 680 540 340 Straight 275 Other: Voiding Method Indwelling Catheter - Labs CBC & Chem 7: 09/04/23 05:35 09/04/23 05:35 Labs: Abnormal Lab Results - Last 24 Hours (Table) 09/03/23 09/03/23 09/04/23 Range/Units 13:00 15:26 05:35 WBC 11.2 H (3.8-10.6) k/uL RBC 3.55 L (4.30-5.90) m/uL Hgb 11.9 L (13.0-17.5) gm/dL Hct 35.6 L (39.0-53.0) % MCV 100.3 H (80.0-100.0) fL Neutrophils # 9.8 H (1.3-7.7) k/uL Lymphocytes # 0.7 L (1.0-4.8) k/uL Sodium (137-145) mmol/L Glucose (74-99) mg/dL POC Glucose (mg/dL) 129 H (70-110) mg/dL Procalcitonin 1.73 H (0.02-0.09) ng/mL 09/04/23 Range/Units 05:35 WBC (3.8-10.6) k/uL RBC (4.30-5.90) m/uL Hgb (13.0-17.5) gm/dL Hct (39.0-53.0) % MCV (80.0-100.0) fL Neutrophils # (1.3-7.7) k/uL Lymphocytes # (1.0-4.8) k/uL Sodium 132 L (137-145) mmol/L Glucose 106 H (74-99) mg/dL POC Glucose (mg/dL) (70-110) mg/dL Procalcitonin (0.02-0.09) ng/mL Microbiology - Last 24 Hours (Table) 09/02/23 11:30 Blood Culture - Preliminary Blood 09/02/23 11:47 Blood Culture - Preliminary Blood
--- NOTE | 2023-09-04 12:33 | P.PN ---
Subjective Progress Note Date: 09/04/23 CHIEF COMPLAINT: Acute gangrenous appendicitis with rupture HISTORY OF PRESENT ILLNESS: Patient postop day# 2 status post laparoscopic appendectomy. Patient was transferred to the ICU yesterday due to worsening respiratory status. Patient is currently in the ICU requiring 6 L. Respiratory rate was elevated. Patient reports overall he is feeling better than yesterday. He reports that his pain is less. He is having a lot of flatus. He had mild nausea. No vomiting. He is belching. He was able to tolerate a small amount of clears. Patient reports he does not feel as distended. BISHOP drain 20 mL serosanguineous output. Afebrile. White count decreased from 12.5-11.2. CT scan abdomen and pelvis reports a few gas loops of bowel may indicate limited postoperative ileus. Fairly prominent areas of consolidation pneumonia in both lung bases. No grossly evident acute process in abdomen or pelvis. Johnson catheter placed yesterday for urinary retention. PHYSICAL EXAM: VITAL SIGNS: Reviewed. GENERAL: no acute distress. ABDOMEN: Distended. But slightly less distended than yesterday. Diffuse tenderness. Incision sites clean dry and intact. NEUROLOGIC: Alert and oriented. Cranial nerves II through XII grossly intact. ASSESSMENT: 1. Acute gangrenous appendicitis with rupture 2. Urinary retention 3. Postoperative ileus can be an expected complication 4. Pneumonia PLAN: -Reglan added for postoperative ileus -Discontinue Celexa due to its interaction with Reglan -Will continue to monitor without NG tube -Encourage patient to increase activity level -Continue only sips of clear liquids -Continue antibiotics -Continue pain management -Continue IV fluid hydration -Encourage incentive spirometer use -GI prophylaxis Pepcid and DVT prophylaxis Lovenox Physician [employer] [address] [address] [employer] note has been reviewed by physician. Signing provider agrees with the documented findings, assessment, and plan of care. Objective - Vital Signs Vital signs: Vital Signs Temp 98.5 F 09/04/23 08:00 Pulse 85 09/04/23 10:00 Resp 19 09/04/23 10:00 BP 126/82 09/04/23 10:00 Pulse Ox 95 09/04/23 10:00 FiO2 Intake & Output 09/03/23 09/04/23 09/04/23 18:59 06:59 18:59 Intake Total 350 1500 695 Output Total 680 560 340 Balance -330 940 355 Weight 90.2 kg Intake: IV 250 Lactated Ringers 1,000 ml 250 @ 125 mls/hr IV .Q8H EDDIE Rx#:[id number] Intake, IV Titration 350 1500 125 Amount Lactated Ringers 1,000 ml 250 1500 125 @ 125 mls/hr IV .Q8H EDDIE Rx#:[id number] Piperacillin-Tazobactam 3 100 .375 gm In Sodium Chloride 0.9% 100 ml @ 25 mls/hr IVPB Q8HR EDDIE Rx# :[id number] Oral 320 Output: Drainage 20 Anterior Medial Abdomen 20 Urine 680 540 340 Straight 275 Other: Voiding Method Indwelling Catheter Indwelling Catheter - Labs CBC & Chem 7: 09/04/23 05:35 09/04/23 05:35 Labs: Abnormal Lab Results - Last 24 Hours (Table) 09/03/23 09/03/23 09/04/23 Range/Units 13:00 15:26 05:35 WBC 11.2 H (3.8-10.6) k/uL RBC 3.55 L (4.30-5.90) m/uL Hgb 11.9 L (13.0-17.5) gm/dL Hct 35.6 L (39.0-53.0) % MCV 100.3 H (80.0-100.0) fL Neutrophils # 9.8 H (1.3-7.7) k/uL Lymphocytes # 0.7 L (1.0-4.8) k/uL Sodium (137-145) mmol/L Glucose (74-99) mg/dL POC Glucose (mg/dL) 129 H (70-110) mg/dL Procalcitonin 1.73 H (0.02-0.09) ng/mL 09/04/23 Range/Units 05:35 WBC (3.8-10.6) k/uL RBC (4.30-5.90) m/uL Hgb (13.0-17.5) gm/dL Hct (39.0-53.0) % MCV (80.0-100.0) fL Neutrophils # (1.3-7.7) k/uL Lymphocytes # (1.0-4.8) k/uL Sodium 132 L (137-145) mmol/L Glucose 106 H (74-99) mg/dL POC Glucose (mg/dL) (70-110) mg/dL Procalcitonin (0.02-0.09) ng/mL Microbiology - Last 24 Hours (Table) 09/02/23 11:30 Blood Culture - Preliminary Blood 09/02/23 11:47 Blood Culture - Preliminary Blood
[2023-09-04] MEDS: MAG HYDROX/AL HYDROX/SIMETH 30 ML CUP PO PRN (15:35)
[2023-09-05 03:26] LABS: Basophils % (A) 0 %; Eosinophils # (A) 0.2 k/uL (0-0.7); Eosinophils % (A) 2 %; HCT 38.5 % (39.0-53.0); HGB 12.2 gm/dL (13.0-17.5); Lymphocytes # (A) 0.7 k/uL (1.0-4.8); Lymphocytes % (A) 6 %; MCH 32.2 pg (25.0-35.0); MCHC 31.6 g/dL (31.0-37.0); MCV 101.7 fL (80.0-100.0); Macrocytosis Slight; Mean Platelet Volume 7.5; Monocytes # (A) 0.7 k/uL (0-1.0); Monocytes % (A) 7 %; Neutrophils # (A) 9.1 k/uL (1.3-7.7); Neutrophils % (A) 84 %; Platelet Count 220 k/uL (150-450); RBC 3.79 m/uL (4.30-5.90); RDW 12.9 % (11.5-15.5); WBC 10.9 k/uL (3.8-10.6)
[2023-09-05 03:41] LABS: African American GFR (CKD) >90 (>60 ml/min/1.73 sqM); Anion Gap 8 mmol/L; Blood Urea Nitrogen 12 mg/dL (9-20); Calcium 8.4 mg/dL (8.4-10.2); Carbon Dioxide 25 mmol/L (22-30); Chloride 103 mmol/L (98-107); Glucose 116 mg/dL (74-99); Non-African American GFR(CKD) >90 (>60 ml/min/1.73 sqM); Potassium 3.8 mmol/L (3.5-5.1); Sodium 136 mmol/L (137-145)
[2023-09-05] MEDS ORDERED: Potassium Replacement Protocol 1 EACH MISC MISCELLANE PRN (03:53)
[2023-09-05] MEDS: POTASSIUM CHLORIDE ER 20 MEQ TAB.ER PO SCH (05:01)
[2023-09-05 07:22] LABS: Glucose,Whole Blood 115 mg/dL (70-110)
--- NOTE | 2023-09-05 07:43 | XR ---
EXAMINATION TYPE: XR chest 1V portable DATE OF EXAM: 09/05/2023 HISTORY: Shortness of breath. COMPARISON: 09/04/2023 TECHNIQUE: Single view of the chest is submitted. FINDINGS: There is continued pulmonary venous congestion with basilar filtrates and small effusions. The findin gs could be related to congestive failure although pneumonia is not excluded. The heart is stable. Hilar and mediastinal structures are within normal limits. Degenerative changes are seen of the dorsal spine. IMPRESSION: 1. There is continued pulmonary venous congestion with basilar filtrates and small effusions. The fi ndings could be related to congestive failure although pneumonia is not excluded.
[2023-09-05] MEDS: FUROSEMIDE 10 MG/ML 4 ML VIAL IV STA (09:35)
--- NOTE | 2023-09-05 10:41 | P.PN ---
Subjective Progress Note Date: 09/05/23 This is a very pleasant 63-year-old male patient with a history of hearing disorder, hypertension, BPH, kidney stones, anxiety/depression. Lifelong non- smoker. He had presented here to the emergency room yesterday with a 3-day history of right lower quadrant pain radiating to the right lower back. He also had issues with nausea and dry heaves. Developed chills and low-grade fever. CT scan of the abdomen revealed acute uncomplicated appendicitis. Nonobstructive right renal calculus. White count 12.5. Hemoglobin 11.8. Platelets 145. Sodium 135. Potassium 4.2. Bicarb 25. BUN 22. Creatinine 1.3. Glucose 131. He was taken to the operating room and was found to have acute gangrenous appendicitis with rupture. He had undergone a laparoscopic appendectomy. Postoperative day #1. He started out today requiring oxygen at 2 L/min per nasal cannula. Throughout the day he had becoming more short of breath and he is currently on 10 L high flow nasal cannula. He is also developed significant abdominal discomfort and distention. This is feeling higher than his surgical site pain. Chest x-ray reveals coarse perihilar infiltrates with diminutive lung volumes. More focal infiltrate right lung base. He is on bronchodilators. Antibiotics in the form of Zosyn. Lovenox for DVT prophylaxis. The patient is seen today September 04, 2023 in follow-up in the into the intensive care unit. He is currently resting fairly comfortably in bed. Awake and alert in no acute distress. He is maintaining O2 saturations in the mid 90s on 6 L high flow nasal cannula. He has been afebrile. Hemodynamically stable. Still with some right upper quadrant discomfort. Not as bad as yesterday. CT scan of the abdomen and pelvis from yesterday did reveal vicarious excretion of contrast into the gallbladder. A few gas-filled loops of bowel may indicate a limited postoperative ileus. Fairly prominent areas of consolidating pneumonia in the lung bases. Today's chest x-ray shows diminished lung volumes. Coarse perihilar infiltrates and basilar opacity persist. He is tolerating clear liquid diet. Blood cultures reveal no growth. Procalcitonin was 1.73. Troponins were negative x 2. proBNP 664. White count 11.2. Hemoglobin 11.9. Platelets 178. Sodium 132. Potassium 3.9. Bicarb 28. BUN 16. Creatinine 0.98. Glucose 106. He is continued on DuoNeb inhalations. Antibiotics in the form of Zosyn. Lovenox for DVT prophylaxis. The patient is seen today September 05, 2023 in follow-up in the intensive care unit. He is currently sitting up in bed. Awake and alert in no acute distress. He is maintaining O2 saturations in the 90s on 6 L/min per nasal cannula. He has lactated Ringer's at 125 MLS per hour. He is having bowel movements. He is tolerating clear liquid diet. He needs increased encouragement regarding the use of the incentive spirometer. Chest x-ray continues to show continued pulmonary venous congestion with bilateral infiltrates and small effusions.. White count 10.9. Hemoglobin 12.2. Platelets 220. Sodium 136. Potassium 3.8. Bicarb 25. BUN 12. Creatinine 0.79. Glucose 116. He is continued on DuoNeb ventilations. Antibiotics in the form of Zosyn. Lovenox for DVT prophylaxis. Objective - Vital Signs Vital signs: Vital Signs Temp 98.4 F 09/05/23 08:00 Pulse 89 09/05/23 10:00 Resp 17 09/05/23 10:00 BP 138/85 09/05/23 10:00 Pulse Ox 93 L 09/05/23 10:00 FiO2 Intake & Output 09/04/23 09/05/23 09/05/23 18:59 06:59 18:59 Intake Total 1945 1600 325 Output Total 1755 1330 770 Balance 190 270 -445 Weight 89 kg Intake: IV 1500 1600 225 Lactated Ringers 1,000 ml 1500 1500 225 @ 50 mls/hr IV .Q20H [facility] Rx#:[id number] Piperacillin-Tazobactam 3 100 .375 gm In Sodium Chloride 0.9% 100 ml @ 25 mls/hr IVPB Q8HR [facility] Rx# :[id number] Intake, IV Titration 125 100 Amount Lactated Ringers 1,000 ml 125 @ 50 mls/hr IV .Q20H [facility] Rx#:[id number] Piperacillin-Tazobactam 3 100 .375 gm In Sodium Chloride 0.9% 100 ml @ 25 mls/hr IVPB Q8HR [facility] Rx# :[id number] Oral 320 Output: Drainage 20 30 Anterior Medial Abdomen 20 30 Urine 1735 1300 770 Other: Voiding Method Indwelling Catheter Indwelling Catheter # Bowel Movements 2 - Exam GENERAL EXAM: Alert, 63-year-old male, sitting up in bed, on 6 L high flow nasal cannula, comfortable in no acute distress. HEAD: Normocephalic. EYES: Normal reaction of pupils, equal size. NOSE: Clear with pink turbinates. THROAT: No erythema or exudates. NECK: No masses, no JVD. CHEST: No chest wall deformity. LUNGS: Equal air entry with few scattered rhonchi. CVS: S1 and S2 normal with no audible murmur, regular rhythm. ABDOMEN: Distended, tender to palpation, incision sites clean and dry. BISHOP drain in place with serosanguineous output SPINE: No scoliosis or deformity SKIN: No rashes CENTRAL NERVOUS SYSTEM: No focal deficits, tone is normal in all 4 extremities. EXTREMITIES: There is no peripheral edema. No clubbing, no cyanosis. Peripheral pulses are intact. - Labs CBC & Chem 7: 09/05/23 02:56 09/05/23 02:56 Labs: Abnormal Lab Results - Last 24 Hours (Table) 09/05/23 09/05/23 09/05/23 Range/Units 02:56 02:56 07:21 WBC 10.9 H (3.8-10.6) k/uL RBC 3.79 L (4.30-5.90) m/uL Hgb 12.2 L (13.0-17.5) gm/dL Hct 38.5 L (39.0-53.0) % MCV 101.7 H (80.0-100.0) fL Neutrophils # 9.1 H (1.3-7.7) k/uL Lymphocytes # 0.7 L (1.0-4.8) k/uL Sodium 136 L (137-145) mmol/L Glucose 116 H (74-99) mg/dL POC Glucose (mg/dL) 115 H (70-110) mg/dL Microbiology - Last 24 Hours (Table) 09/02/23 11:30 Blood Culture - Preliminary Blood 09/02/23 11:47 Blood Culture - Preliminary Blood Assessment and Plan Assessment: Right lower quadrant abdominal pain in a patient found to have acute gangrenous appendicitis with rupture. Status laparoscopic appendectomy. Postoperative day #3. Postoperative CT scan of the abdomen revealed like. A few gas loops of bowel may indicate a limited postoperative ileus. Tolerating clear liquids, having bowel movement Acute hypoxemic respiratory failure secondary to low lung volumes, atelectasis due to shallow respirations due to pain, possible aspiration pneumonia, remains on Zosyn Leukocytosis secondary to above History of hearing disorder Benign prostatic hyperplasia Hyperlipidemia Hypertension Anxiety/depression Plan: The patient was seen and evaluated Chest x-ray, labs and medications reviewed Decrease lactated Ringer's to 50 MLS per hour Lasix 40 mg IVP x 1 Titrate down the FiO2 as tolerated Continue bronchodilators, Zosyn Encouraged the increased use of the incentive spirometer Increase his activity as tolerated Advance diet per surgical services Transfer to a regular medical floor We will continue to follow I have personally seen and examined the patient, performed the documentation and the assessment and plan as written. Number of minutes spent on the visit: 10.
--- NOTE | 2023-09-05 10:46 | P.PN ---
Subjective patient 63-year-old gentleman past medical history significant for hyperlipidemia, urine retention who presented to the ER for abdominal pain. Patient stated he was all right 4 days back when he started not noticing sharp right lower quadrant abdominal pain. Abdominal pain was intermittent, nonradiating, associated with nausea and dry heaves. There was no complaint of any aggravating or relieving factors associated with abdominal pain. There was no complaint of altered bowel movements. Patient was complaining of low-grade fevers and chills. Patient was complaining of loss of appetite. Because of the symptoms, patient came to his PCP office who referred him to the ER for appendicitis rule out Initial lab work done in the ER showed WBC extreme 1 5, hemoglobin 13.9, platelet count 156, sodium 137, potassium 3.9, BUN 22, creatinine 1.26, glucose 104, bilirubin 1.4 CT abdomen pelvis done showed acute uncomplicated appendicitis Patient admitted to the general surgery. Patient underwent laparoscopic appendicectomy. Postoperatively internal medicine team were consulted for medical management 09/03. Patient seen and examined. Patient currently on 3 L of oxygen. Patient had to be transferred to ICU overnight for closer monitoring because of worsening respiratory status. Patient doing much better this morning. 09/05/2023 Patient remains in the ICU under critical condition. He is status post laparoscopic appendectomy. Today's postop day #2. He still complaining from abdominal pain about 6/10 Drain with little of serous discharge He has bloody bowel movement today He was able to eat little bit He still mildly tachypneic Still on high dose of oxygen 8 L/min. Patient states he was not on oxygen at home. He has low-grade fever 99.7. Oxygen saturating 95% on 8 L WBC is 10.9, hemoglobin 12.2 which is stable Chest x-ray showing decreased lung volume with perihilar and basilar opacity suspicious for pneumonia CT of the abdomen and pelvis showing fairly prominent area of consolidated pneumonia in both lung bases. No gross evidence of acute process in the pelvis or abdomen Patient currently remains on Zosyn and Ringer lactate at 125 mL/h Also he is on Flomax and Pepcid and subcutaneous Lovenox REVIEW OF SYSTEMS: CONSTITUTIONAL: No fever, no malaise,. CARDIOVASCULAR: No chest pain, no palpitations, no syncope. PULMONARY: As mentioned above GASTROINTESTINAL: No diarrhea, no nausea, no vomiting. Abdominal pain is improved NEUROLOGICAL: No headaches, no weakness, Active Medications Generic Name Dose Route Start Last Admin Trade Name Freq PRN Reason Stop Dose Admin Acetaminophen 650 mg 09/02/23 12:54 Acetaminophen Tab 325 Mg Tab PO Q6HR PRN Mild Pain or Fever >= 100.5 Hydrocodone Bitart/Acetaminophen 1 each 09/02/23 12:54 09/04/23 08:41 Hydrocodone/Apap 5-325mg 1 Each Tab PO 1 each Q4HR PRN Administration Moderate Pain (Scale 4 to 6) Al Hydroxide/Mg Hydroxide 30 ml 09/04/23 11:53 09/04/23 15:35 Mag Hydrox/Al Hydrox/Simeth 30 Ml Cup PO 30 ml QID PRN Administration Heartburn Albuterol/Ipratropium 3 ml 09/03/23 13:00 09/05/23 09:17 Ipratropium-Albuterol 3 Ml Neb INHALATION Not Given RT-TID [facility] Atorvastatin Calcium 40 mg 09/03/23 09:00 09/05/23 09:38 Atorvastatin 40 Mg Tab PO 40 mg DAILY [facility] Administration Enoxaparin Sodium 40 mg 09/03/23 09:00 09/05/23 10:23 Enoxaparin 40 Mg/0.4 Ml Syringe SQ 40 mg DAILY [facility] Administration Famotidine 20 mg 09/03/23 09:00 09/05/23 09:38 Famotidine 20 Mg Tab PO 20 mg BID [facility] Administration Hydromorphone HCl 1 mg 09/03/23 10:12 09/05/23 02:13 Hydromorphone 1 Mg/Ml 1 Ml Syringe IVP 1 mg Q3HR PRN Administration Pain Scale 7 to 10 Hydromorphone HCl 0.5 mg 09/03/23 11:56 Hydromorphone 0.5 Mg/0.5 Ml Syringe IVP Q2HR PRN Moderate Pain (Scale 4 to 6) Lactated Ringer's 1,000 mls @ 50 mls/hr 09/02/23 13:00 09/05/23 07:45 Lactated Ringers IV 50 mls/hr .Q20H [facility] Administration Piperacillin Sod/Tazobactam 100 mls @ 25 mls/hr 09/03/23 08:00 09/05/23 09:35 Sod 3.375 gm/ Sodium Chloride IVPB 25 mls/hr Q8HR [facility] Administration Protocol Metoclopramide HCl 10 mg 09/04/23 12:00 09/05/23 10:24 Metoclopramide 5 Mg/Ml 2 Ml Vial IVP Not Given Q6HR [facility] Metoprolol Tartrate 100 mg 09/02/23 22:45 09/04/23 20:59 Metoprolol Tartrate 50 Mg Tab PO 100 mg HS [facility] Administration Miscellaneous Information 1 each 09/05/23 03:53 Potassium Replacement Protocol 1 Each Misc MISCELLANE DAILY PRN Per Protocol Protocol Naloxone HCl 0.2 mg 09/02/23 12:54 Naloxone 0.4 Mg/Ml 1 Ml Vial IV Q2M PRN Opioid Reversal Ondansetron HCl 4 mg 09/02/23 12:54 09/04/23 11:43 Ondansetron 4 Mg/2 Ml Vial IVP 4 mg Q6HR PRN Administration Nausea And Vomiting Tamsulosin HCl 0.4 mg 09/03/23 21:00 09/04/23 20:59 Tamsulosin 0.4 Mg Cap.Er.24h PO 0.4 mg HS [facility] Administration Objective - Vital Signs Vital signs: Vital Signs Temp 98.4 F 09/05/23 08:00 Pulse 89 09/05/23 10:00 Resp 17 09/05/23 10:00 BP 138/85 09/05/23 10:00 Pulse Ox 93 L 09/05/23 10:00 FiO2 Intake & Output 09/04/23 09/05/23 09/05/23 18:59 06:59 18:59 Intake Total 1945 1600 325 Output Total 1755 1330 1647 Balance 190 270 -1322 Weight 89 kg Intake: IV 1500 1600 225 Lactated Ringers 1,000 ml 1500 1500 225 @ 50 mls/hr IV .Q20H [facility] Rx#:[id number] Piperacillin-Tazobactam 3 100 .375 gm In Sodium Chloride 0.9% 100 ml @ 25 mls/hr IVPB Q8HR [facility] Rx# :[id number] Intake, IV Titration 125 100 Amount Lactated Ringers 1,000 ml 125 @ 50 mls/hr IV .Q20H [facility] Rx#:[id number] Piperacillin-Tazobactam 3 100 .375 gm In Sodium Chloride 0.9% 100 ml @ 25 mls/hr IVPB Q8HR [facility] Rx# :[id number] Oral 320 Output: Drainage 20 30 Anterior Medial Abdomen 20 30 Urine 1735 1300 1645 Stool 2 Other: Voiding Method Indwelling Catheter Indwelling Catheter # Bowel Movements 2 - Exam GENERAL: The patient is alert and oriented x3, not in any acute distress. Well developed, well nourished. HEENT: Pupils are round and equally reacting to light. EOMI. No scleral icterus. No conjunctival pallor. Normocephalic, atraumatic. No pharyngeal erythema. No thyromegaly. CARDIOVASCULAR: S1 and S2 present. No murmurs, rubs, or gallops. -PULMONARY: Chest is clear to auscultation, no wheezing , no crackles. Bilateral basal crepitation and crackles, coarse -ABDOMEN: Soft, tender at surgical site. nondistended, normoactive bowel sounds. No palpable organomegaly. Surgical wound is closed and healing. Drain in place MUSCULOSKELETAL: No joint swelling or deformity. EXTREMITIES: No cyanosis, clubbing, or pedal edema. NEUROLOGICAL: Gross neurological examination did not reveal any focal deficits. SKIN: No rashes. no petechiae. - Labs CBC & Chem 7: 09/05/23 02:56 09/05/23 02:56 Labs: Abnormal Lab Results - Last 24 Hours (Table) 09/05/23 09/05/23 09/05/23 Range/Units 02:56 02:56 07:21 WBC 10.9 H (3.8-10.6) k/uL RBC 3.79 L (4.30-5.90) m/uL Hgb 12.2 L (13.0-17.5) gm/dL Hct 38.5 L (39.0-53.0) % MCV 101.7 H (80.0-100.0) fL Neutrophils # 9.1 H (1.3-7.7) k/uL Lymphocytes # 0.7 L (1.0-4.8) k/uL Sodium 136 L (137-145) mmol/L Glucose 116 H (74-99) mg/dL POC Glucose (mg/dL) 115 H (70-110) mg/dL Microbiology - Last 24 Hours (Table) 09/02/23 11:30 Blood Culture - Preliminary Blood 09/02/23 11:47 Blood Culture - Preliminary Blood Assessment and Plan Assessment: Acute appendicitis status post lap appendicectomy Bilateral basal pneumonia Acute hypoxic respiratory failure acute Urine retention Leukocytosis secondary to above History of hearing disorder Benign prostatic hyperplasia Hyperlipidemia Hypertension Plan: Continue with Zosyn Continue with IV hydration, currently on Ringer lactate Encourage diet General surgery and pulmonary/critical care team following closely Labs and medication were reviewed.. Continue same treatment. Continue with symptomatic treatment. Resume home medication. Monitor labs and vitals. DVT and GI prophylaxis. Further recommendations as per clinical course of the patient DVT prophylaxis: Subcutaneous Lovenox GI Prophylaxis: Pepcid PT/OT: Pending Prognosis is guarded
--- NOTE | 2023-09-05 12:56 | CDI ---
Documentation Clarification Form Date: 09/05/2023 From: Emily Gonzales Phone: [phone] Admit Date: 09/03/2023 08:41:00 AM Patient Name: Kade Demarco Visit Number: [id number] Discharge Date: ATTENTION: The Clinical Documentation Specialists (CDI) and [facility] Coding Staff appreciate your assistance in clarifying documentation. Please respond to the clarification below the line at the bottom and electronically sign. The CDI & [facility] Coding staff will review the response and follow-up if needed. Please note: Queries are made part of the Legal Health Record. If you have any questions, please contact the author of this message via ITS. Doctor/Provider: Nadiya Bowman PA-C: Postoperative ileus is documented in the Surgery progress note 09/03. Additional clarification regarding the postoperative ileus is requested. Patients Admitting Diagnosis: Right lower quadrant pain Post-Operative Diagnosis: Acute gangrenous appendicitis with rupture Procedure performed: 09/01 Laparoscopic appendectomy History/Risk Factors: 63-year-old male with a history of HTN who presents with right lower quadrant pain Clinical Indicators: 09/03 Surgery PN, Assessment: "3. Postoperative ileus can be an expected complication." Plan: "-Reglan added for postoperative ileus." 09/03 Pulmonology PN, Assessment and Plan: "#2. Postoperative CT scan of the abdomen revealed a few gas loops of bowel may indicate a limited postoperative ileus. Tolerating clear liquids" 09/04 Pulmonary PN, Subjective: "He is having bowel movements, He is tolerating clear liquid diet." 09/02 CT Abdomen/Pelvis, Addendum: "A few gas loops of bowel may indicate a limited postoperative ileus" Treatment: NPO 09/01 at lunch then Clear liquid diet at dinner Reglan 10mg IVP [id number] start 09/03 Please clarify if postoperative ileus is a complication of the surgical procedure? [ ] Yes [ ] No [ ] Postoperative ileus ruled out [ ] Other, please specify [ ] Unable to determine Query answered in surgery PN 09/06-Post operative ileus expected outcome MTDD
--- NOTE | 2023-09-05 16:10 | P.PN ---
Subjective Progress Note Date: 09/05/23 CHIEF COMPLAINT: Perforated appendicitis HISTORY OF PRESENT ILLNESS: The patient is a 63-year-old male status post appendectomy for perforated appendicitis. He was in intensive care unit due to acute respiratory distress. Patient transferred to the floor from the ICU. He reports having moderate bowel movements. Separately, patient getting breathing treatments. Reports increased abdominal distention. ROS: No reports of nausea and vomiting. No fevers or chills. No new chest pain. Has productive sputum PHYSICAL EXAM: VITAL SIGNS: Reviewed CONSTITUTIONAL: Well developed and in no acute distress. EYES: Conjuctivae without sclera icterus. Extraocular movements grossly intact. HEAD, EARS, NOSE, THROAT: Moist buccal mucosa. Head is atraumatic, normocephalic. Hears conversational speech. No nasal drainage. RESPIRATORY: Non-labored respirations and equal bilateral excursions. CARDIOVASCULAR: Palpable 2+ radial pulses. ABDOMEN: Abdominal distention. No peritonitis. Incision intact. BISHOP serosanguineous. MUSCULOSKELETAL: No gross deformity of the lower extremities noted. No clubbing. No cyanosis. SKIN: Good skin turgor. Well perfused. NEUROLOGIC: Cranial nerves II through XII grossly intact. No focal or lateralizing signs. PSYCH: Appropriate affect. Alert and oriented to person, place and time. CLINICAL LABS: Reviewed. WBC down 11.2-10.9, leukocytosis. Hemoglobin up 11.9- 12.2, anemia ASSESSMENT: 1. Acute perforated appendicitis 2. Anemia 3. Postop pneumonia PLAN: 1. Continue with breathing treatments. 2. I prescribed simethicone gas drops for abdominal distention 3. Continue clear liquid diet Objective - Vital Signs Vital signs: Vital Signs Temp 97.8 F 09/05/23 12:54 Pulse 105 H 09/05/23 15:44 Resp 18 09/05/23 12:54 BP 135/83 09/05/23 12:54 Pulse Ox 95 09/05/23 15:31 FiO2 Intake & Output 09/04/23 09/05/23 09/05/23 18:59 06:59 18:59 Intake Total 1945 1600 375 Output Total 2612 1330 2222 Balance 190 270 -1847 Weight 89 kg Intake: IV 1500 1600 275 Lactated Ringers 1,000 ml 1500 1500 275 @ 50 mls/hr IV .Q20H [facility] Rx#:[id number] Piperacillin-Tazobactam 3 100 .375 gm In Sodium Chloride 0.9% 100 ml @ 25 mls/hr IVPB Q8HR [facility] Rx# :[id number] Intake, IV Titration 125 100 Amount Lactated Ringers 1,000 ml 125 @ 50 mls/hr IV .Q20H [facility] Rx#:[id number] Piperacillin-Tazobactam 3 100 .375 gm In Sodium Chloride 0.9% 100 ml @ 25 mls/hr IVPB Q8HR [facility] Rx# :[id number] Oral 320 Output: Drainage 20 30 Anterior Medial Abdomen 20 30 Urine 1735 1300 2220 Stool 2 Other: Voiding Method Indwelling Catheter Indwelling Catheter Indwelling Catheter # Bowel Movements 2 - Labs CBC & Chem 7: 09/05/23 02:56 09/05/23 02:56 Labs: Abnormal Lab Results - Last 24 Hours (Table) 09/05/23 09/05/23 09/05/23 Range/Units 02:56 02:56 07:21 WBC 10.9 H (3.8-10.6) k/uL RBC 3.79 L (4.30-5.90) m/uL Hgb 12.2 L (13.0-17.5) gm/dL Hct 38.5 L (39.0-53.0) % MCV 101.7 H (80.0-100.0) fL Neutrophils # 9.1 H (1.3-7.7) k/uL Lymphocytes # 0.7 L (1.0-4.8) k/uL Sodium 136 L (137-145) mmol/L Glucose 116 H (74-99) mg/dL POC Glucose (mg/dL) 115 H (70-110) mg/dL Microbiology - Last 24 Hours (Table) 09/02/23 11:30 Blood Culture - Preliminary Blood 09/02/23 11:47 Blood Culture - Preliminary Blood
[2023-09-05] MEDS: SIMETHICONE 80 MG CHEWABLE PO SCH (17:14)
[2023-09-05] MEDS: HYDROmorphone 0.5 MG/0.5 ML SYRINGE IVP PRN (20:22)
--- NOTE | 2023-09-06 10:28 | P.PN ---
Subjective Progress Note Date: 09/06/23 This is a very pleasant 63-year-old male patient with a history of hearing disorder, hypertension, BPH, kidney stones, anxiety/depression. Lifelong non- smoker. He had presented here to the emergency room yesterday with a 3-day history of right lower quadrant pain radiating to the right lower back. He also had issues with nausea and dry heaves. Developed chills and low-grade fever. CT scan of the abdomen revealed acute uncomplicated appendicitis. Nonobstructive right renal calculus. White count 12.5. Hemoglobin 11.8. Platelets 145. Sodium 135. Potassium 4.2. Bicarb 25. BUN 22. Creatinine 1.3. Glucose 131. He was taken to the operating room and was found to have acute gangrenous appendicitis with rupture. He had undergone a laparoscopic appendectomy. Postoperative day #1. He started out today requiring oxygen at 2 L/min per nasal cannula. Throughout the day he had becoming more short of breath and he is currently on 10 L high flow nasal cannula. He is also developed significant abdominal discomfort and distention. This is feeling higher than his surgical site pain. Chest x-ray reveals coarse perihilar infiltrates with diminutive lung volumes. More focal infiltrate right lung base. He is on bronchodilators. Antibiotics in the form of Zosyn. Lovenox for DVT prophylaxis. The patient is seen today September 04, 2023 in follow-up in the into the intensive care unit. He is currently resting fairly comfortably in bed. Awake and alert in no acute distress. He is maintaining O2 saturations in the mid 90s on 6 L high flow nasal cannula. He has been afebrile. Hemodynamically stable. Still with some right upper quadrant discomfort. Not as bad as yesterday. CT scan of the abdomen and pelvis from yesterday did reveal vicarious excretion of contrast into the gallbladder. A few gas-filled loops of bowel may indicate a limited postoperative ileus. Fairly prominent areas of consolidating pneumonia in the lung bases. Today's chest x-ray shows diminished lung volumes. Coarse perihilar infiltrates and basilar opacity persist. He is tolerating clear liquid diet. Blood cultures reveal no growth. Procalcitonin was 1.73. Troponins were negative x 2. proBNP 664. White count 11.2. Hemoglobin 11.9. Platelets 178. Sodium 132. Potassium 3.9. Bicarb 28. BUN 16. Creatinine 0.98. Glucose 106. He is continued on DuoNeb inhalations. Antibiotics in the form of Zosyn. Lovenox for DVT prophylaxis. The patient is seen today September 05, 2023 in follow-up in the intensive care unit. He is currently sitting up in bed. Awake and alert in no acute distress. He is maintaining O2 saturations in the 90s on 6 L/min per nasal cannula. He has lactated Ringer's at 125 MLS per hour. He is having bowel movements. He is tolerating clear liquid diet. He needs increased encouragement regarding the use of the incentive spirometer. Chest x-ray continues to show continued pulmonary venous congestion with bilateral infiltrates and small effusions.. White count 10.9. Hemoglobin 12.2. Platelets 220. Sodium 136. Potassium 3.8. Bicarb 25. BUN 12. Creatinine 0.79. Glucose 116. He is continued on DuoNeb ventilations. Antibiotics in the form of Zosyn. Lovenox for DVT prophylaxis. The patient is seen today September 06, 2023 in follow-up on the regular medical floor. He is resting comfortably in bed. Awake and alert in no acute distress. Maintaining O2 saturations in the 90s on 2 L/min per nasal cannula. Lactated Ringer's at 50 MLS per hour. He remains on Zosyn. Blood cultures revealed no growth. He remains on bronchodilators. Lovenox for DVT prophylaxis. No new labs today. Objective - Vital Signs Vital signs: Vital Signs Temp 98.2 F 09/06/23 07:44 Pulse 95 09/06/23 09:59 Resp 18 09/06/23 07:44 BP 135/81 09/06/23 07:44 Pulse Ox 96 09/06/23 09:49 FiO2 Intake & Output 09/05/23 09/06/23 09/06/23 18:59 06:59 18:59 Intake Total 1075 Output Total 2772 65 100 Balance -1697 -65 -100 Intake: IV 875 Lactated Ringers 1,000 ml 875 @ 50 mls/hr IV .Q20H EDDIE Rx#:[id number] Intake, IV Titration 200 Amount Piperacillin-Tazobactam 3 200 .375 gm In Sodium Chloride 0.9% 100 ml @ 25 mls/hr IVPB Q8HR EDDIE Rx# :[id number] Output: Drainage 50 65 100 Anterior Medial Abdomen 50 65 100 Urine 2720 Stool 2 Other: Voiding Method Indwelling Catheter Toilet # Voids 1 - Exam GENERAL EXAM: Alert, 63-year-old male, resting in bed, on 2 L high flow nasal cannula, comfortable in no acute distress. HEAD: Normocephalic. EYES: Normal reaction of pupils, equal size. NOSE: Clear with pink turbinates. THROAT: No erythema or exudates. NECK: No masses, no JVD. CHEST: No chest wall deformity. LUNGS: Equal air entry with few scattered rhonchi. CVS: S1 and S2 normal with no audible murmur, regular rhythm. ABDOMEN: Distended, tender to palpation, incision sites clean and dry. BISHOP drain in place with serosanguineous output SPINE: No scoliosis or deformity SKIN: No rashes CENTRAL NERVOUS SYSTEM: No focal deficits, tone is normal in all 4 extremities. EXTREMITIES: There is no peripheral edema. No clubbing, no cyanosis. Peripheral pulses are intact. - Labs CBC & Chem 7: 09/05/23 02:56 09/05/23 02:56 Labs: Microbiology - Last 24 Hours (Table) 09/02/23 11:30 Blood Culture - Preliminary Blood 09/02/23 11:47 Blood Culture - Preliminary Blood Assessment and Plan Assessment: Right lower quadrant abdominal pain in a patient found to have acute gangrenous appendicitis with rupture. Status laparoscopic appendectomy. Postoperative day #4. Postoperative CT scan of the abdomen revealed like. A few gas loops of bowel may indicate a limited postoperative ileus. Tolerating clear liquids, having bowel movement Acute hypoxemic respiratory failure secondary to low lung volumes, atelectasis due to shallow respirations due to pain, possible aspiration pneumonia, remains on Zosyn Leukocytosis secondary to above History of hearing disorder Benign prostatic hyperplasia Hyperlipidemia Hypertension Anxiety/depression Plan: The patient was seen and evaluated Medications reviewed Titrate down the FiO2 as tolerated Continue bronchodilators, Zosyn Encouraged the increased use of the incentive spirometer Increase his activity as tolerated We will continue to follow I have personally seen and examined the patient, performed the documentation and the assessment and plan as written. Number of minutes spent on the visit: 10.
--- NOTE | 2023-09-06 18:13 | P.PN ---
Subjective patient 63-year-old gentleman past medical history significant for hyperlipidemia, urine retention who presented to the ER for abdominal pain. Patient stated he was all right 4 days back when he started not noticing sharp right lower quadrant abdominal pain. Abdominal pain was intermittent, nonradiating, associated with nausea and dry heaves. There was no complaint of any aggravating or relieving factors associated with abdominal pain. There was no complaint of altered bowel movements. Patient was complaining of low-grade fevers and chills. Patient was complaining of loss of appetite. Because of the symptoms, patient came to his PCP office who referred him to the ER for appendicitis rule out Initial lab work done in the ER showed WBC extreme 1 5, hemoglobin 13.9, platelet count 156, sodium 137, potassium 3.9, BUN 22, creatinine 1.26, glucose 104, bilirubin 1.4 CT abdomen pelvis done showed acute uncomplicated appendicitis Patient admitted to the general surgery. Patient underwent laparoscopic appendicectomy. Postoperatively internal medicine team were consulted for medical management 09/03. Patient seen and examined. Patient currently on 3 L of oxygen. Patient had to be transferred to ICU overnight for closer monitoring because of worsening respiratory status. Patient doing much better this morning. 09/05/2023 Patient remains in the ICU under critical condition. He is status post laparoscopic appendectomy. Today's postop day #2. He still complaining from abdominal pain about 6/10 Drain with little of serous discharge He has bloody bowel movement today He was able to eat little bit He still mildly tachypneic Still on high dose of oxygen 8 L/min. Patient states he was not on oxygen at home. He has low-grade fever 99.7. Oxygen saturating 95% on 8 L WBC is 10.9, hemoglobin 12.2 which is stable Chest x-ray showing decreased lung volume with perihilar and basilar opacity suspicious for pneumonia CT of the abdomen and pelvis showing fairly prominent area of consolidated pneumonia in both lung bases. No gross evidence of acute process in the pelvis or abdomen Patient currently remains on Zosyn and Ringer lactate at 125 mL/h Also he is on Flomax and Pepcid and subcutaneous Lovenox 09/05 Patient was transferred out of the ICU to the general medical floor His breathing is better close to baseline and currently on 2 L oxygen only compared to 8 L yesterday His abdomen mildly distention but pain controlled when he is eating 25 to 75% of his meal Surgery team following Check labs tomorrow Objective - Vital Signs Vital signs: Vital Signs Temp 98.5 F 09/06/23 14:00 Pulse 96 09/06/23 14:00 Resp 17 09/06/23 14:00 BP 143/81 09/06/23 14:00 Pulse Ox 95 09/06/23 14:00 FiO2 Intake & Output 09/05/23 09/06/23 09/06/23 18:59 06:59 18:59 Intake Total 1075 Output Total 2772 65 330 Balance -1697 -65 -330 Intake: IV 875 Lactated Ringers 1,000 ml 875 @ 50 mls/hr IV .Q20H EDDIE Rx#:[id number] Intake, IV Titration 200 Amount Piperacillin-Tazobactam 3 200 .375 gm In Sodium Chloride 0.9% 100 ml @ 25 mls/hr IVPB Q8HR ED[facility] Rx# :[id number] Output: Drainage 50 65 330 Anterior Medial Abdomen 50 65 330 Urine 2720 Stool 2 Other: Voiding Method Indwelling Catheter Toilet Toilet # Voids 1 3 # Bowel Movements 1 - Exam GENERAL: The patient is alert and oriented x3, not in any acute distress. Well developed, well nourished. HEENT: Pupils are round and equally reacting to light. EOMI. No scleral icterus. No conjunctival pallor. Normocephalic, atraumatic. No pharyngeal erythema. No thyromegaly. CARDIOVASCULAR: S1 and S2 present. No murmurs, rubs, or gallops. -PULMONARY: Chest is clear to auscultation, no wheezing , no crackles. Bi lateral basal crepitation and crackles, coarse -ABDOMEN: Soft, tender at surgical site. nondistended, normoactive bowel sounds. No palpable organomegaly. Surgical wound is closed and healing. Drain in place MUSCULOSKELETAL: No joint swelling or deformity. EXTREMITIES: No cyanosis, clubbing, or pedal edema. NEUROLOGICAL: Gross neurological examination did not reveal any focal deficits. SKIN: No rashes. no petechiae. - Labs CBC & Chem 7: 09/05/23 02:56 09/05/23 02:56 Labs: Microbiology - Last 24 Hours (Table) 09/02/23 11:30 Blood Culture - Preliminary Blood 09/02/23 11:47 Blood Culture - Preliminary Blood Assessment and Plan Assessment: Acute appendicitis status post lap appendicectomy Bilateral basal pneumonia Acute hypoxic respiratory failure acute Urine retention Leukocytosis secondary to above History of hearing disorder Benign prostatic hyperplasia Hyperlipidemia Hypertension Plan: Continue with Zosyn Continue with IV hydration Encourage diet General surgery and pulmonary/critical care team following closely Labs and medication were reviewed.. Continue same treatment. Continue with symptomatic treatment. Resume home medication. Monitor labs and vitals. DVT and GI prophylaxis. Further recommendations as per clinical course of the patient DVT prophylaxis: Subcutaneous Lovenox GI Prophylaxis: Pepcid PT/OT: Pending Prognosis is guarded
--- NOTE | 2023-09-07 01:13 | P.PN ---
Subjective Patient seen and evaluated at bedside. Some nausea overnight, mild abdominal pain Objective - Vital Signs Vital signs: Vital Signs Temp 98.9 F 09/06/23 20:04 Pulse 98 09/06/23 21:20 Resp 17 09/06/23 20:04 BP 142/91 09/06/23 20:04 Pulse Ox 90 L 09/06/23 20:04 FiO2 Intake & Output 09/06/23 09/06/23 09/07/23 06:59 18:59 06:59 Output Total 65 390 60 Balance -65 -390 -60 Output: Drainage 65 390 60 Anterior Medial Abdomen 65 390 60 Other: Voiding Method Toilet Toilet # Voids 2 # Bowel Movements 1 1 - Exam gen: nad cv: rrr pul: non labored breathing, abd: soft, distended, no guarding, tender to palpation, yaritza drain demonstrating increased serous output - Labs CBC & Chem 7: 09/05/23 02:56 09/05/23 02:56 Assessment and Plan Assessment: 63 yo male s/p lap appy 2/2 perforated appendicitis increased yaritza drain output likely 2/2 increased intra-abdominal pressure patient may be developing an ileus will continue to watch closely Time with Patient: Less than 30
--- NOTE | 2023-09-07 06:53 | XR ---
KUB. HISTORY: Abdominal pain. COMPARISON: None. TECHNIQUE: 2 supine portable views of the abdomen were obtained. FINDINGS: There is a drainage catheter within the abdomen presumably peritoneal dialysis catheter. The small bowel is dilated and air-filled consistent with adynamic ileus or bowel obstruction. No suspicious abdominal or pelvic calcifications are seen. The osseous structures are intact. IMPRESSION: 1. Abdominal drainage catheter presumably a peritoneal dialysis catheter. 2. Abnormal bowel gas pattern consistent with adynamic ileus or small bowel obstruction.
--- NOTE | 2023-09-07 08:34 | XR ---
EXAMINATION TYPE: XR chest 1V confirm line [facility] DATE OF EXAM: 09/07/2023 COMPARISON: 09/05/2023 HISTORY: NG tube placement TECHNIQUE: Single frontal view of the chest is obtained. FINDINGS: There is an NG tube within the stomach. There is no change in the pulmonary vascular congestion in right lung base atelectasis. Interstitial scarring. There is no pneumothorax. There is no large pleural effusion. IMPRESSION: 1. NG tube within stomach. 2. No change in the mild acute cardiopulmonary disease.
[2023-09-07 10:05] LABS: Basophils # (A) 0.07 X 10*3/uL (0.00-0.10); Basophils % (A) 0.9 %; Eosinophils # (A) 0.41 X 10*3/uL (0.04-0.35); Eosinophils % (A) 5.1 %; HCT 37.6 % (39.6-50.0); HGB 12.3 g/dL (13.0-17.0); Lymphocytes # (A) 0.91 X 10*3/uL (0.90-5.00); Lymphocytes % (A) 11.3 %; MCH 32.9 pg (27.0-32.0); MCHC 32.7 g/dL (32.0-37.0); MCV 100.5 FL (80.0-97.0); Mean Platelet Volume 9.6 FL (9.5-12.2); Monocytes # (A) 0.93 X 10*3/uL (0.20-1.00); Monocytes % (A) 11.5 %; NRBC Per 100 WBC 0 X 10*3/uL (0.00-0.01); Neutrophils # (A) 5.64 X 10*3/uL (1.80-7.70); Neutrophils % (A) 69.8 %; Platelet Count 253 X 10*3/uL (140-440); RBC 3.74 X 10*6/uL (4.40-5.60); RDW 13.3 % (11.5-14.5); WBC 8.07 X 10*3/uL (4.50-10.00)
[2023-09-07 10:29] LABS: Blood Urea Nitrogen 10.1 mg/dL (9.0-27.0); Calcium 8.6 mg/dL (8.7-10.3); Carbon Dioxide 26.2 mmol/L (21.6-31.8); Chloride 99 mmol/L (96-109); Glucose 103 mg/dL (70-110); Potassium 3.8 mmol/L (3.5-5.5); Sodium 139 mmol/L (135-145)
--- NOTE | 2023-09-07 11:43 | P.PN ---
Subjective Progress Note Date: 09/07/23 This is a very pleasant 63-year-old male patient with a history of hearing disorder, hypertension, BPH, kidney stones, anxiety/depression. Lifelong non- smoker. He had presented here to the emergency room yesterday with a 3-day history of right lower quadrant pain radiating to the right lower back. He also had issues with nausea and dry heaves. Developed chills and low-grade fever. CT scan of the abdomen revealed acute uncomplicated appendicitis. Nonobstructive right renal calculus. White count 12.5. Hemoglobin 11.8. Platelets 145. Sodium 135. Potassium 4.2. Bicarb 25. BUN 22. Creatinine 1.3. Glucose 131. He was taken to the operating room and was found to have acute gangrenous appendicitis with rupture. He had undergone a laparoscopic appendectomy. Postoperative day #1. He started out today requiring oxygen at 2 L/min per nasal cannula. Throughout the day he had becoming more short of breath and he is currently on 10 L high flow nasal cannula. He is also developed significant abdominal discomfort and distention. This is feeling higher than his surgical site pain. Chest x-ray reveals coarse perihilar infiltrates with diminutive lung volumes. More focal infiltrate right lung base. He is on bronchodilators. Antibiotics in the form of Zosyn. Lovenox for DVT prophylaxis. The patient is seen today September 04, 2023 in follow-up in the into the intensive care unit. He is currently resting fairly comfortably in bed. Awake and alert in no acute distress. He is maintaining O2 saturations in the mid 90s on 6 L high flow nasal cannula. He has been afebrile. Hemodynamically stable. Still with some right upper quadrant discomfort. Not as bad as yesterday. CT scan of the abdomen and pelvis from yesterday did reveal vicarious excretion of contrast into the gallbladder. A few gas-filled loops of bowel may indicate a limited postoperative ileus. Fairly prominent areas of consolidating pneumonia in the lung bases. Today's chest x-ray shows diminished lung volumes. Coarse perihilar infiltrates and basilar opacity persist. He is tolerating clear liquid diet. Blood cultures reveal no growth. Procalcitonin was 1.73. Troponins were negative x 2. proBNP 664. White count 11.2. Hemoglobin 11.9. Platelets 178. Sodium 132. Potassium 3.9. Bicarb 28. BUN 16. Creatinine 0.98. Glucose 106. He is continued on DuoNeb inhalations. Antibiotics in the form of Zosyn. Lovenox for DVT prophylaxis. The patient is seen today September 05, 2023 in follow-up in the intensive care unit. He is currently sitting up in bed. Awake and alert in no acute distress. He is maintaining O2 saturations in the 90s on 6 L/min per nasal cannula. He has lactated Ringer's at 125 MLS per hour. He is having bowel movements. He is tolerating clear liquid diet. He needs increased encouragement regarding the use of the incentive spirometer. Chest x-ray continues to show continued pulmonary venous congestion with bilateral infiltrates and small effusions.. White count 10.9. Hemoglobin 12.2. Platelets 220. Sodium 136. Potassium 3.8. Bicarb 25. BUN 12. Creatinine 0.79. Glucose 116. He is continued on DuoNeb ventilations. Antibiotics in the form of Zosyn. Lovenox for DVT prophylaxis. The patient is seen today September 06, 2023 in follow-up on the regular medical floor. He is resting comfortably in bed. Awake and alert in no acute distress. Maintaining O2 saturations in the 90s on 2 L/min per nasal cannula. Lactated Ringer's at 50 MLS per hour. He remains on Zosyn. Blood cultures revealed no growth. He remains on bronchodilators. Lovenox for DVT prophylaxis. No new labs today. The patient is seen today September 07, 2023 in follow-up on the regular medical floor. He is currently resting in bed. Awake and alert in no acute distress. He is maintaining O2 saturations on room air now. Nasogastric tube remains in place. He is continued on Zosyn. Normal saline at 50 MLS per hour. Lovenox for DVT prophylaxis. Abdominal x-ray reveals abdominal drainage catheter in place. Abnormal bowel gas pattern consistent with adynamic ileus or small bowel obstruction. Chest x-ray reviewed reveals nasogastric tube in place. Mild pulmonary vascular congestion. Stable. White count 8.0. Hemoglobin 12.3. Platelets 253. Sodium 139. Potassium 3.8. Bicarb 26. BUN 10. Creatinine 1.0. Glucose 103. Objective - Vital Signs Vital signs: Vital Signs Temp 98.7 F 09/07/23 07:32 Pulse 91 09/07/23 07:32 Resp 17 09/07/23 07:32 BP 135/80 09/07/23 07:32 Pulse Ox 95 09/07/23 07:32 FiO2 Intake & Output 09/06/23 09/07/23 09/07/23 18:59 06:59 18:59 Output Total 390 150 80 Balance -390 -150 -80 Output: Drainage 390 150 80 Anterior Medial Abdomen 390 150 80 Other: Voiding Method Toilet Toilet # Voids 2 3 # Bowel Movements 1 1 - Exam GENERAL EXAM: Alert, 63-year-old male, resting in bed, on room air, comfortable in no acute distress. HEAD: Normocephalic. EYES: Normal reaction of pupils, equal size. NOSE: Nasogastric tube secured in place. Clear with pink turbinates. THROAT: No erythema or exudates. NECK: No masses, no JVD. CHEST: No chest wall deformity. LUNGS: Equal air entry with few scattered rhonchi. CVS: S1 and S2 normal with no audible murmur, regular rhythm. ABDOMEN: Distended, tender to palpation, incision sites clean and dry. BISHOP drain in place with serosanguineous output SPINE: No scoliosis or deformity SKIN: No rashes CENTRAL NERVOUS SYSTEM: No focal deficits, tone is normal in all 4 extremities. EXTREMITIES: There is no peripheral edema. No clubbing, no cyanosis. Peripheral pulses are intact. - Labs CBC & Chem 7: 09/07/23 03:57 09/07/23 03:57 Labs: Abnormal Lab Results - Last 24 Hours (Table) 09/07/23 09/07/23 Range/Units 03:57 03:57 RBC 3.74 L (4.40-5.60) X 10*6/uL Hgb 12.3 L (13.0-17.0) g/dL Hct 37.6 L (39.6-50.0) % MCV 100.5 H (80.0-97.0) FL MCH 32.9 H (27.0-32.0) pg Immature Gran # 0.11 H (0.00-0.04) X 10*3/uL Eosinophils # 0.41 H (0.04-0.35) X 10*3/uL Anion Gap 13.80 H (4.00-12.00) mmol/L BUN/Creatinine Ratio 10.10 L (12.00-20.00) Ratio Calcium 8.6 L (8.7-10.3) mg/dL Assessment and Plan Assessment: Right lower quadrant abdominal pain in a patient found to have acute gangrenous appendicitis with rupture. Status laparoscopic appendectomy. Postoperative day #5. Abdominal x-ray today reveals abnormal bowel gas pattern consistent with adynamic ileus or small bowel obstruction. Nasogastric tube in place Acute hypoxemic respiratory failure secondary to low lung volumes, atelectasis due to shallow respirations due to pain, possible aspiration pneumonia, remains on Zosyn Leukocytosis secondary to above History of hearing disorder Benign prostatic hyperplasia Hyperlipidemia Hypertension Anxiety/depression Plan: The patient was seen and evaluated Medications and labs reviewed Abdominal x-ray, chest x-rays reviewed Nasogastric tube in place Stable and on room air Continue bronchodilators, Zosyn Encouraged the increased use of the incentive spirometer Increase his activity as tolerated We will continue to follow I have personally seen and examined the patient, performed the documentation and the assessment and plan as written. Number of minutes spent on the visit: 10.
--- NOTE | 2023-09-07 12:53 | P.PN ---
Subjective Progress Note Date: 09/07/23 CHIEF COMPLAINT: Perforated appendicitis HISTORY OF PRESENT ILLNESS: The patient is a 63-year-old male status post appendectomy for perforated appendicitis. Patient had placement of nasogastric tube due to abdominal distention. His and family are at bedside. He reports passing flatus and having a bowel movement yesterday however today no passage of flatus. He is sitting in the bed. He is NPO. ROS: No fevers or chills. No new chest pain. Has productive sputum PHYSICAL EXAM: VITAL SIGNS: Reviewed CONSTITUTIONAL: Well developed and in no acute distress. EYES: Conjuctivae without sclera icterus. Extraocular movements grossly intact. HEAD, EARS, NOSE, THROAT: Moist buccal mucosa. Head is atraumatic, normocephalic. Hears conversational speech. No nasal drainage. RESPIRATORY: Non-labored respirations and equal bilateral excursions. CARDIOVASCULAR: Palpable 2+ radial pulses. ABDOMEN: Abdominal distention. No peritonitis. Incision intact. BISHOP serosanguineous. MUSCULOSKELETAL: No gross deformity of the lower extremities noted. No clubbing. No cyanosis. SKIN: Good skin turgor. Well perfused. NEUROLOGIC: Cranial nerves II through XII grossly intact. No focal or la teralizing signs. PSYCH: Appropriate affect. Alert and oriented to person, place and time. CLINICAL LABS: Reviewed. WBC normal. STUDIES: Abdominal x-ray independent review demonstrates findings more consistent with ileus. This is my independent interpretation. Chest x-ray reviewed demonstrates tip within the proximal stomach. This is my independent interpretation. ASSESSMENT: 1. Acute perforated appendicitis 2. Anemia 3. Postop pneumonia 4. Postoperative ileus PLAN: 1. Patient encouraged to ambulate to address postoperative ileus which is an expected outcome after perforated appendicitis. Patient was reassured regarding the course of his recovery. 2. Adjust medications to include Reglan and Zofran scheduled 3. Continue nasogastric tube until resumption of bowel function. 4. Repeat abdominal x-rays for tomorrow 5. Advance nasogastric tube by 10 cm. Objective - Vital Signs Vital signs: Vital Signs Temp 98.7 F 09/07/23 07:32 Pulse 91 09/07/23 07:32 Resp 17 09/07/23 07:32 BP 135/80 09/07/23 07:32 Pulse Ox 95 09/07/23 07:32 FiO2 Intake & Output 09/06/23 09/07/23 09/07/23 18:59 06:59 18:59 Output Total 390 150 140 Balance -390 -150 -140 Output: Drainage 390 150 140 Anterior Medial Abdomen 390 150 140 Other: Voiding Method Toilet Toilet # Voids 2 3 # Bowel Movements 1 1 - Labs CBC & Chem 7: 09/07/23 03:57 09/07/23 03:57 Labs: Abnormal Lab Results - Last 24 Hours (Table) 09/07/23 09/07/23 Range/Units 03:57 03:57 RBC 3.74 L (4.40-5.60) X 10*6/uL Hgb 12.3 L (13.0-17.0) g/dL Hct 37.6 L (39.6-50.0) % MCV 100.5 H (80.0-97.0) FL MCH 32.9 H (27.0-32.0) pg Immature Gran # 0.11 H (0.00-0.04) X 10*3/uL Eosinophils # 0.41 H (0.04-0.35) X 10*3/uL Anion Gap 13.80 H (4.00-12.00) mmol/L BUN/Creatinine Ratio 10.10 L (12.00-20.00) Ratio Calcium 8.6 L (8.7-10.3) mg/dL
[2023-09-07] MEDS: ONDANSETRON 4 MG/2 ML VIAL IVP SCH (18:08)
--- NOTE | 2023-09-07 23:05 | P.PN ---
Subjective patient 63-year-old gentleman past medical history significant for hyperlipidemia, urine retention who presented to the ER for abdominal pain. Patient stated he was all right 4 days back when he started not noticing sharp right lower quadrant abdominal pain. Abdominal pain was intermittent, nonradiating, associated with nausea and dry heaves. There was no complaint of any aggravating or relieving factors associated with abdominal pain. There was no complaint of altered bowel movements. Patient was complaining of low-grade fevers and chills. Patient was complaining of loss of appetite. Because of the symptoms, patient came to his PCP office who referred him to the ER for appendicitis rule out Initial lab work done in the ER showed WBC extreme 1 5, hemoglobin 13.9, platelet count 156, sodium 137, potassium 3.9, BUN 22, creatinine 1.26, glucose 104, bilirubin 1.4 CT abdomen pelvis done showed acute uncomplicated appendicitis Patient admitted to the general surgery. Patient underwent laparoscopic appendicectomy. Postoperatively internal medicine team were consulted for medical management 09/03. Patient seen and examined. Patient currently on 3 L of oxygen. Patient had to be transferred to ICU overnight for closer monitoring because of worsening respiratory status. Patient doing much better this morning. 09/05/2023 Patient remains in the ICU under critical condition. He is status post laparoscopic appendectomy. Today's postop day #2. He still complaining from abdominal pain about 6/10 Drain with little of serous discharge He has bloody bowel movement today He was able to eat little bit He still mildly tachypneic Still on high dose of oxygen 8 L/min. Patient states he was not on oxygen at home. He has low-grade fever 99.7. Oxygen saturating 95% on 8 L WBC is 10.9, hemoglobin 12.2 which is stable Chest x-ray showing decreased lung volume with perihilar and basilar opacity suspicious for pneumonia CT of the abdomen and pelvis showing fairly prominent area of consolidated pneumonia in both lung bases. No gross evidence of acute process in the pelvis or abdomen Patient currently remains on Zosyn and Ringer lactate at 125 mL/h Also he is on Flomax and Pepcid and subcutaneous Lovenox 09/05 Patient was transferred out of the ICU to the general medical floor His breathing is better close to baseline and currently on 2 L oxygen only compared to 8 L yesterday His abdomen mildly distention but pain controlled when he is eating 25 to 75% of his meal Surgery team following Check labs tomorrow 09/07/23 Patient was seen walking in the hallway by himself with small steps with the help of his but did not no Specific complaint No significant dyspnea No bowel movement this morning, he had 3 small once yesterday Objective - Vital Signs Vital signs: Vital Signs Temp 98.5 F 09/07/23 13:38 Pulse 113 H 09/07/23 13:38 Resp 17 09/07/23 13:38 BP 135/85 09/07/23 13:38 Pulse Ox 94 L 09/07/23 13:38 FiO2 Intake & Output 09/06/23 09/07/23 09/07/23 18:59 06:59 18:59 Output Total 390 150 140 Balance -390 -150 -140 Output: Drainage 390 150 140 Anterior Medial Abdomen 390 150 140 Other: Voiding Method Toilet Toilet # Voids 2 3 # Bowel Movements 1 1 - Exam GENERAL: The patient is alert and oriented x3, not in any acute distress. Well developed, well nourished. HEENT: Pupils are round and equally reacting to light. EOMI. No scleral icterus. No conjunctival pallor. Normocephalic, atraumatic. No pharyngeal erythema. No thyromegaly. CARDIOVASCULAR: S1 and S2 present. No murmurs, rubs, or gallops. -PULMONARY: Chest is clear to auscultation, no wheezing , no crackles. Bilateral basal crepitation and crackles, coarse -ABDOMEN: Soft, tender at surgical site. nondistended, normoactive bowel sounds. No palpable organomegaly. Surgical wound is closed and healing. Drain in place MUSCULOSKELETAL: No joint swelling or deformity. EXTREMITIES: No cyanosis, clubbing, or pedal edema. NEUROLOGICAL: Gross neurological examination did not reveal any focal deficits. SKIN: No rashes. no petechiae. - Labs CBC & Chem 7: 09/07/23 03:57 09/07/23 03:57 Labs: Abnormal Lab Results - Last 24 Hours (Table) 09/07/23 09/07/23 Range/Units 03:57 03:57 RBC 3.74 L (4.40-5.60) X 10*6/uL Hgb 12.3 L (13.0-17.0) g/dL Hct 37.6 L (39.6-50.0) % MCV 100.5 H (80.0-97.0) FL MCH 32.9 H (27.0-32.0) pg Immature Gran # 0.11 H (0.00-0.04) X 10*3/uL Eosinophils # 0.41 H (0.04-0.35) X 10*3/uL Anion Gap 13.80 H (4.00-12.00) mmol/L BUN/Creatinine Ratio 10.10 L (12.00-20.00) Ratio Calcium 8.6 L (8.7-10.3) mg/dL Assessment and Plan Assessment: Acute appendicitis status post lap appendicectomy Bilateral basal pneumonia Acute hypoxic respiratory failure acute Urine retention Leukocytosis secondary to above History of hearing disorder Benign prostatic hyperplasia Hyperlipidemia Hypertension Plan: Continue with Zosyn Continue with IV hydration Encourage diet General surgery and pulmonary/critical care team following closely Labs and medication were reviewed.. Continue same treatment. Continue with symptomatic treatment. Resume home medication. Monitor labs and vitals. DVT and GI prophylaxis. Further recommendations as per clinical course of the patient DVT prophylaxis: Subcutaneous Lovenox GI Prophylaxis: Pepcid PT/OT: Pending Prognosis is guarded
--- NOTE | 2023-09-08 07:50 | XR ---
EXAMINATION TYPE: XR abdomen 2V DATE OF EXAM: 09/08/2023 HISTORY: Pain. Technique: 2 views of the abdomen are submitted. Comparison: 09/07/2023 Findings: There is no convincing evidence of pneumoperitoneum. Dilated small bowel up to 4.4 cm. Overall appearance is stable which may reflect ileus versus small bowel obstruction. No sizable air-fluid levels are seen. No mass effects are noted. No renal calcifications are identified. IMPRESSION: 1. Dilated small bowel up to 4.4 cm. Overall appearance is stable which may reflect ileus versus sma ll bowel obstruction.
--- NOTE | 2023-09-08 13:28 | P.PN ---
Subjective Progress Note Date: 09/08/23 This is a very pleasant 63-year-old male patient with a history of hearing disorder, hypertension, BPH, kidney stones, anxiety/depression. Lifelong non- smoker. He had presented here to the emergency room yesterday with a 3-day history of right lower quadrant pain radiating to the right lower back. He also had issues with nausea and dry heaves. Developed chills and low-grade fever. CT scan of the abdomen revealed acute uncomplicated appendicitis. Nonobstructive right renal calculus. White count 12.5. Hemoglobin 11.8. Platelets 145. Sodium 135. Potassium 4.2. Bicarb 25. BUN 22. Creatinine 1.3. Glucose 131. He was taken to the operating room and was found to have acute gangrenous appendicitis with rupture. He had undergone a laparoscopic appendectomy. Postoperative day #1. He started out today requiring oxygen at 2 L/min per nasal cannula. Throughout the day he had becoming more short of breath and he is currently on 10 L high flow nasal cannula. He is also developed significant abdominal discomfort and distention. This is feeling higher than his surgical site pain. Chest x-ray reveals coarse perihilar infiltrates with diminutive lung volumes. More focal infiltrate right lung base. He is on bronchodilators. Antibiotics in the form of Zosyn. Lovenox for DVT prophylaxis. The patient is seen today September 04, 2023 in follow-up in the into the intensive care unit. He is currently resting fairly comfortably in bed. Awake and alert in no acute distress. He is maintaining O2 saturations in the mid 90s on 6 L high flow nasal cannula. He has been afebrile. Hemodynamically stable. Still with some right upper quadrant discomfort. Not as bad as yesterday. CT scan of the abdomen and pelvis from yesterday did reveal vicarious excretion of contrast into the gallbladder. A few gas-filled loops of bowel may indicate a limited postoperative ileus. Fairly prominent areas of consolidating pneumonia in the lung bases. Today's chest x-ray shows diminished lung volumes. Coarse perihilar infiltrates and basilar opacity persist. He is tolerating clear liquid diet. Blood cultures reveal no growth. Procalcitonin was 1.73. Troponins were negative x 2. proBNP 664. White count 11.2. Hemoglobin 11.9. Platelets 178. Sodium 132. Potassium 3.9. Bicarb 28. BUN 16. Creatinine 0.98. Glucose 106. He is continued on DuoNeb inhalations. Antibiotics in the form of Zosyn. Lovenox for DVT prophylaxis. The patient is seen today September 05, 2023 in follow-up in the intensive care unit. He is currently sitting up in bed. Awake and alert in no acute distress. He is maintaining O2 saturations in the 90s on 6 L/min per nasal cannula. He has lactated Ringer's at 125 MLS per hour. He is having bowel movements. He is tolerating clear liquid diet. He needs increased encouragement regarding the use of the incentive spirometer. Chest x-ray continues to show continued pulmonary venous congestion with bilateral infiltrates and small effusions.. White count 10.9. Hemoglobin 12.2. Platelets 220. Sodium 136. Potassium 3.8. Bicarb 25. BUN 12. Creatinine 0.79. Glucose 116. He is continued on DuoNeb ventilations. Antibiotics in the form of Zosyn. Lovenox for DVT prophylaxis. The patient is seen today September 06, 2023 in follow-up on the regular medical floor. He is resting comfortably in bed. Awake and alert in no acute distress. Maintaining O2 saturations in the 90s on 2 L/min per nasal cannula. Lactated Ringer's at 50 MLS per hour. He remains on Zosyn. Blood cultures revealed no growth. He remains on bronchodilators. Lovenox for DVT prophylaxis. No new labs today. The patient is seen today September 07, 2023 in follow-up on the regular medical floor. He is currently resting in bed. Awake and alert in no acute distress. He is maintaining O2 saturations on room air now. Nasogastric tube remains in place. He is continued on Zosyn. Normal saline at 50 MLS per hour. Lovenox for DVT prophylaxis. Abdominal x-ray reveals abdominal drainage catheter in place. Abnormal bowel gas pattern consistent with adynamic ileus or small bowel obstruction. Chest x-ray reviewed reveals nasogastric tube in place. Mild pulmonary vascular congestion. Stable. White count 8.0. Hemoglobin 12.3. Platelets 253. Sodium 139. Potassium 3.8. Bicarb 26. BUN 10. Creatinine 1.0. Glucose 103. The patient is seen today September 08, 2023 in follow-up on the regular medical floor. He is awake and alert in no acute distress. Resting fairly comfortably in bed. Nasogastric tube remains in place for his ileus. He is maintaining good O2 saturations in the upper 90s on 2 L/min per nasal cannula. Abdomen is less distended. Less tender. BISHOP drain remains in place. Incision sites clean and dry. He is having bowel movements. He remains on Zosyn. He is continued on bronchodilators. Lovenox for DVT prophylaxis. Abdominal x-ray today reveals dilated small bowel up to 4.4 cm. Overall appearance is stable which may reflect ileus versus small bowel obstruction. Objective - Vital Signs Vital signs: Vital Signs Temp 98.0 F 09/08/23 07:24 Pulse 96 09/08/23 08:39 Resp 18 09/08/23 07:24 BP 150/82 09/08/23 07:24 Pulse Ox 95 09/08/23 07:24 FiO2 Intake & Output 09/07/23 09/08/23 09/08/23 18:59 06:59 18:59 Output Total 180 752 Balance -180 -752 Output: Gastric Drainage 350 Drainage 180 350 Anterior Medial Abdomen 180 350 Stool 2 Other 50 Other: Voiding Method Toilet Toilet # Voids 4 4 # Bowel Movements 1 - Exam GENERAL EXAM: Alert, 63-year-old male, on 2 L nasal cannula, in no acute distress. HEAD: Normocephalic. EYES: Normal reaction of pupils, equal size. NOSE: Nasogastric tube secured in place. Clear with pink turbinates. THROAT: No erythema or exudates. NECK: No masses, no JVD. CHEST: No chest wall deformity. LUNGS: Equal air entry with few scattered rhonchi. CVS: S1 and S2 normal with no audible murmur, regular rhythm. ABDOMEN: Distended, tender to palpation, incision sites clean and dry. BISHOP drain in place with serosanguineous output SPINE: No scoliosis or deformity SKIN: No rashes CENTRAL NERVOUS SYSTEM: No focal deficits, tone is normal in all 4 extremities. EXTREMITIES: There is no peripheral edema. No clubbing, no cyanosis. Peripheral pulses are intact. - Labs CBC & Chem 7: 09/07/23 03:57 09/07/23 03:57 Labs: Microbiology - Last 24 Hours (Table) 09/02/23 11:30 Blood Culture - Final Blood 09/02/23 11:47 Blood Culture - Final Blood Assessment and Plan Assessment: Right lower quadrant abdominal pain in a patient found to have acute gangrenous appendicitis with rupture. Status laparoscopic appendectomy. Postoperative day #6. Abdominal x-ray reveals abnormal bowel gas pattern consistent with adynamic ileus or small bowel obstruction. Nasogastric tube in place Acute hypoxemic respiratory failure secondary to low lung volumes, atelectasis due to shallow respirations due to pain, possible aspiration pneumonia, remains on Zosyn Leukocytosis secondary to above History of hearing disorder Benign prostatic hyperplasia Hyperlipidemia Hypertension Anxiety/depression Plan: The patient was seen and evaluated Medications and labs reviewed Abdominal x-ray reviewed Nasogastric tube in place Encouraged the increased use of the incentive spirometer Increase his activity as tolerated We will continue to follow I have personally seen and examined the patient, performed the documentation and the assessment and plan as written. Number of minutes spent on the visit: 10.
--- NOTE | 2023-09-08 15:15 | P.PN ---
Subjective Progress Note Date: 09/08/23 CHIEF COMPLAINT: Acute gangrenous appendicitis with rupture HISTORY OF PRESENT ILLNESS: Patient postop day# 3 status post laparoscopic appendectomy. Patient is on a regular medical floor. He does have NG tube in place with 350 mL bilious/pena output. Patient does report having bowel movement. He reports that his pain is overall starting to improve. He had been mildly tachycardic. Abdominal x-ray still reporting ileus versus small bowel obstruction. BISHOP drain with 310 mL serous output PHYSICAL EXAM: VITAL SIGNS: Reviewed. GENERAL: no acute distress. ABDOMEN: Distended. But slightly less distended than yesterday. Diffuse tenderness. Incision sites clean dry and intact. BISHOP fluid serous NEUROLOGIC: Alert and oriented. Cranial nerves II through XII grossly intact. ASSESSMENT: 1. Acute gangrenous appendicitis with rupture 2. Urinary retention 3. Postoperative ileus can be an expected complication 4. Postop Pneumonia PLAN: -Continue NG tube for decompression -Keep patient n.p.o. except for ice chips -Continue Reglan -Encourage patient to increase activity level -Continue antibiotics -Continue pain management -Continue IV fluids -Encourage incentive spirometer use -Continue to monitor BISHOP drain output -GI prophylaxis Pepcid and DVT prophylaxis Lovenox Physician Testing Coordinator note has been reviewed by physician. Signing provider agrees with the documented findings, assessment, and plan of care. Objective - Vital Signs Vital signs: Vital Signs Temp 97.6 F 09/08/23 13:29 Pulse 103 H 09/08/23 13:29 Resp 18 09/08/23 13:29 BP 154/83 09/08/23 13:29 Pulse Ox 95 09/08/23 13:29 FiO2 Intake & Output 09/07/23 09/08/23 09/08/23 18:59 06:59 18:59 Output Total 180 752 Balance -180 -752 Output: Gastric Drainage 350 Drainage 180 350 Anterior Medial Abdomen 180 350 Stool 2 Other 50 Other: Voiding Method Toilet Toilet # Voids 4 4 # Bowel Movements 1 - Labs CBC & Chem 7: 09/07/23 03:57 09/07/23 03:57 Labs: Microbiology - Last 24 Hours (Table) 09/02/23 11:30 Blood Culture - Final Blood 09/02/23 11:47 Blood Culture - Final Blood
[2023-09-08] MEDS: BENZOCAINE SPRAY 1 CAN MUCOUS MEM PRN (15:30)
[2023-09-08] MEDS: HYDROCORTISONE 1% CREAM 30 GM TUBE TOPICAL PRN (15:30)
[2023-09-08 16:15] VITALS: BMI 29.0
[2023-09-09 08:45] LABS: HCT 37.1 % (39.6-50.0); HGB 12.3 g/dL (13.0-17.0); Lymphocytes % (A) 10.6 %; MCH 32.9 pg (27.0-32.0); MCHC 33.2 g/dL (32.0-37.0); MCV 99.2 FL (80.0-97.0); Mean Platelet Volume 8.9 FL (9.5-12.2); NRBC Per 100 WBC 0 X 10*3/uL (0.00-0.01); Neutrophils % (A) 76.7 %; Platelet Count 317 X 10*3/uL (140-440); RBC 3.74 X 10*6/uL (4.40-5.60); RDW 13.1 % (11.5-14.5)
[2023-09-09 08:46] LABS: Basophils # (A) 0.07 X 10*3/uL (0.00-0.10); Basophils % (A) 0.6 %; Eosinophils % (A) 2.8 %; Lymphocytes # (A) 1.16 X 10*3/uL (0.90-5.00); Monocytes # (A) 0.82 X 10*3/uL (0.20-1.00); Monocytes % (A) 7.5 %; Neutrophils # (A) 8.35 X 10*3/uL (1.80-7.70)
[2023-09-09 09:24] LABS: BUN/Creat Ratio 12.22 Ratio (12.00-20.00); Calcium 8.2 mg/dL (8.7-10.3); Carbon Dioxide 25.5 mmol/L (21.6-31.8); Chloride 98 mmol/L (96-109); Glucose 79 mg/dL (70-110); Potassium 3.9 mmol/L (3.5-5.5); Sodium 139 mmol/L (135-145)
--- NOTE | 2023-09-09 13:23 | P.PN ---
Subjective Progress Note Date: 09/09/23 This is a very pleasant 63-year-old male patient with a history of hearing disorder, hypertension, BPH, kidney stones, anxiety/depression. Lifelong non- smoker. He had presented here to the emergency room yesterday with a 3-day history of right lower quadrant pain radiating to the right lower back. He also had issues with nausea and dry heaves. Developed chills and low-grade fever. CT scan of the abdomen revealed acute uncomplicated appendicitis. Nonobstructive right renal calculus. White count 12.5. Hemoglobin 11.8. Platelets 145. Sodium 135. Potassium 4.2. Bicarb 25. BUN 22. Creatinine 1.3. Glucose 131. He was taken to the operating room and was found to have acute gangrenous appendicitis with rupture. He had undergone a laparoscopic appendectomy. Postoperative day #1. He started out today requiring oxygen at 2 L/min per nasal cannula. Throughout the day he had becoming more short of breath and he is currently on 10 L high flow nasal cannula. He is also developed significant abdominal discomfort and distention. This is feeling higher than his surgical site pain. Chest x-ray reveals coarse perihilar infiltrates with diminutive lung volumes. More focal infiltrate right lung base. He is on bronchodilators. Antibiotics in the form of Zosyn. Lovenox for DVT prophylaxis. The patient is seen today September 04, 2023 in follow-up in the into the intensive care unit. He is currently resting fairly comfortably in bed. Awake and alert in no acute distress. He is maintaining O2 saturations in the mid 90s on 6 L high flow nasal cannula. He has been afebrile. Hemodynamically stable. Still with some right upper quadrant discomfort. Not as bad as yesterday. CT scan of the abdomen and pelvis from yesterday did reveal vicarious excretion of contrast into the gallbladder. A few gas-filled loops of bowel may indicate a limited postoperative ileus. Fairly prominent areas of consolidating pneumonia in the lung bases. Today's chest x-ray shows diminished lung volumes. Coarse perihilar infiltrates and basilar opacity persist. He is tolerating clear liquid diet. Blood cultures reveal no growth. Procalcitonin was 1.73. Troponins were negative x 2. proBNP 664. White count 11.2. Hemoglobin 11.9. Platelets 178. Sodium 132. Potassium 3.9. Bicarb 28. BUN 16. Creatinine 0.98. Glucose 106. He is continued on DuoNeb inhalations. Antibiotics in the form of Zosyn. Lovenox for DVT prophylaxis. The patient is seen today September 05, 2023 in follow-up in the intensive care unit. He is currently sitting up in bed. Awake and alert in no acute distress. He is maintaining O2 saturations in the 90s on 6 L/min per nasal cannula. He has lactated Ringer's at 125 MLS per hour. He is having bowel movements. He is tolerating clear liquid diet. He needs increased encouragement regarding the use of the incentive spirometer. Chest x-ray continues to show continued pulmonary venous congestion with bilateral infiltrates and small effusions.. White count 10.9. Hemoglobin 12.2. Platelets 220. Sodium 136. Potassium 3.8. Bicarb 25. BUN 12. Creatinine 0.79. Glucose 116. He is continued on DuoNeb ventilations. Antibiotics in the form of Zosyn. Lovenox for DVT prophylaxis. The patient is seen today September 06, 2023 in follow-up on the regular medical floor. He is resting comfortably in bed. Awake and alert in no acute distress. Maintaining O2 saturations in the 90s on 2 L/min per nasal cannula. Lactated Ringer's at 50 MLS per hour. He remains on Zosyn. Blood cultures revealed no growth. He remains on bronchodilators. Lovenox for DVT prophylaxis. No new labs today. The patient is seen today September 07, 2023 in follow-up on the regular medical floor. He is currently resting in bed. Awake and alert in no acute distress. He is maintaining O2 saturations on room air now. Nasogastric tube remains in place. He is continued on Zosyn. Normal saline at 50 MLS per hour. Lovenox for DVT prophylaxis. Abdominal x-ray reveals abdominal drainage catheter in place. Abnormal bowel gas pattern consistent with adynamic ileus or small bowel obstruction. Chest x-ray reviewed reveals nasogastric tube in place. Mild pulmonary vascular congestion. Stable. White count 8.0. Hemoglobin 12.3. Platelets 253. Sodium 139. Potassium 3.8. Bicarb 26. BUN 10. Creatinine 1.0. Glucose 103. The patient is seen today September 08, 2023 in follow-up on the regular medical floor. He is awake and alert in no acute distress. Resting fairly comfortably in bed. Nasogastric tube remains in place for his ileus. He is maintaining good O2 saturations in the upper 90s on 2 L/min per nasal cannula. Abdomen is less distended. Less tender. BISHOP drain remains in place. Incision sites clean and dry. He is having bowel movements. He remains on Zosyn. He is continued on bronchodilators. Lovenox for DVT prophylaxis. Abdominal x-ray today reveals dilated small bowel up to 4.4 cm. Overall appearance is stable which may reflect ileus versus small bowel obstruction. The patient is seen today September 09, 2023 in follow-up on the regular medical floor. He is currently sitting up in a chair at the bedside. Awake and alert in no acute distress. His nasogastric tube has been removed. He is having bowel movements. He is tolerating clear liquids. He continues to work well with his incentive spirometer. Maintaining good O2 saturations in the 90s on room air. He is afebrile. Hemodynamically stable. Blood cultures revealed no growth. White count 10.9. Hemoglobin 12.3. Platelets 317. Sodium 139. Potassium 3.9. Bicarb 26. BUN 11. Creatinine 0.9. Glucose 79. He remains on bronchodilators. Lovenox for DVT prophylaxis. Remains on Zosyn. Objective - Vital Signs Vital signs: Vital Signs Temp 98.5 F 09/09/23 07:06 Pulse 100 09/09/23 08:14 Resp 18 09/09/23 07:06 BP 160/83 09/09/23 07:06 Pulse Ox 92 L 09/09/23 07:06 FiO2 Intake & Output 09/08/23 09/09/23 09/09/23 18:59 06:59 18:59 Output Total 760 450 Balance -760 -450 Weight 89 kg Output: Gastric Drainage 700 350 Drainage 60 100 Anterior Medial Abdomen 60 100 Other: Voiding Method Toilet # Voids 3 2 # Bowel Movements 1 - Exam GENERAL EXAM: Alert, 63-year-old male, up in a chair, on room air, in no acute distress. HEAD: Normocephalic. EYES: Normal reaction of pupils, equal size. NOSE: Clear with pink turbinates. THROAT: No erythema or exudates. NECK: No masses, no JVD. CHEST: No chest wall deformity. LUNGS: Equal air entry with few scattered rhonchi. CVS: S1 and S2 normal with no audible murmur, regular rhythm. ABDOMEN: Distended, tender to palpation, incision sites clean and dry. BISHOP drain in place with serosanguineous output SPINE: No scoliosis or deformity SKIN: No rashes CENTRAL NERVOUS SYSTEM: No focal deficits, tone is normal in all 4 extremities. EXTREMITIES: There is no peripheral edema. No clubbing, no cyanosis. Peripheral pulses are intact. - Labs CBC & Chem 7: 09/09/23 04:57 09/09/23 04:57 Labs: Abnormal Lab Results - Last 24 Hours (Table) 09/09/23 09/09/23 Range/Units 04:57 04:57 WBC 10.90 H (4.50-10.00) X 10*3/uL RBC 3.74 L (4.40-5.60) X 10*6/uL Hgb 12.3 L (13.0-17.0) g/dL Hct 37.1 L (39.6-50.0) % MCV 99.2 H (80.0-97.0) FL MCH 32.9 H (27.0-32.0) pg MPV 8.9 L (9.5-12.2) FL Immature Gran # 0.20 H (0.00-0.04) X 10*3/uL Neutrophils # 8.35 H (1.80-7.70) X 10*3/uL Anion Gap 15.50 H (4.00-12.00) mmol/L Calcium 8.2 L (8.7-10.3) mg/dL Assessment and Plan Assessment: Right lower quadrant abdominal pain in a patient found to have acute gangrenous appendicitis with rupture. Status laparoscopic appendectomy. Postoperative day #7. Abdominal x-ray reveals abnormal bowel gas pattern consistent with adynamic ileus or small bowel obstruction. Improved. Having bowel movements. Nasogastric tube removed today Acute hypoxemic respiratory failure secondary to low lung volumes, atelectasis due to shallow respirations due to pain, possible aspiration pneumonia, remains on Zosyn Leukocytosis secondary to above History of hearing disorder Benign prostatic hyperplasia Hyperlipidemia Hypertension Anxiety/depression Plan: The patient was seen and evaluated Medications and labs reviewed Nasogastric tube removed Tolerating clear liquids Continues on bronchodilators, Zosyn Working with the incentive spirometer We will continue to follow I have personally seen and examined the patient, performed the documentation and the assessment and plan as written. Number of minutes spent on the visit: 10.
--- NOTE | 2023-09-09 13:28 | P.PN ---
Subjective Progress Note Date: 09/09/23 CHIEF COMPLAINT: Acute gangrenous appendicitis with rupture HISTORY OF PRESENT ILLNESS: Patient postop day# 7 status post laparoscopic appendectomy. Patient is on a regular medical floor. Patient is having flatus and bowel movement. NG tube with 350 mL bilious output this a.m. Pain has improved. Afebrile. WBC 10.9 Hgb 12.3. BISHOP drain with 100 mL serosanguineous output Patient seen and examined with Dr. Hallman PHYSICAL EXAM: VITAL SIGNS: Reviewed. GENERAL: no acute distress. ABDOMEN: Less distended. Incision sites clean dry and intact. BISHOP drain serosanguineous output NEUROLOGIC: Alert and oriented. Cranial nerves II through XII grossly intact. ASSESSMENT: 1. Acute gangrenous appendicitis with rupture 2. Urinary retention 3. Postoperative ileus can be an expected complication 4. Postop Pneumonia PLAN: -Discontinue NG tube -Start clear liquid diet -Continue Reglan -Encourage patient to increase activity level -Continue antibiotics -Continue pain management -Encourage incentive spirometer use -Continue to monitor BISHOP drain output -GI prophylaxis Pepcid and DVT prophylaxis Lovenox Physician Machine Heddle Cleaner note has been reviewed by physician. Signing provider agrees with the documented findings, assessment, and plan of care. Objective - Vital Signs Vital signs: Vital Signs Temp 98.5 F 09/09/23 07:06 Pulse 100 09/09/23 08:14 Resp 18 09/09/23 07:06 BP 160/83 09/09/23 07:06 Pulse Ox 92 L 09/09/23 07:06 FiO2 Intake & Output 09/08/23 09/09/23 09/09/23 18:59 06:59 18:59 Output Total 760 450 Balance -760 -450 Weight 89 kg Output: Gastric Drainage 700 350 Drainage 60 100 Anterior Medial Abdomen 60 100 Other: Voiding Method Toilet # Voids 3 2 # Bowel Movements 1 - Labs CBC & Chem 7: 09/09/23 04:57 09/09/23 04:57 Labs: Abnormal Lab Results - Last 24 Hours (Table) 09/09/23 09/09/23 Range/Units 04:57 04:57 WBC 10.90 H (4.50-10.00) X 10*3/uL RBC 3.74 L (4.40-5.60) X 10*6/uL Hgb 12.3 L (13.0-17.0) g/dL Hct 37.1 L (39.6-50.0) % MCV 99.2 H (80.0-97.0) FL MCH 32.9 H (27.0-32.0) pg MPV 8.9 L (9.5-12.2) FL Immature Gran # 0.20 H (0.00-0.04) X 10*3/uL Neutrophils # 8.35 H (1.80-7.70) X 10*3/uL Anion Gap 15.50 H (4.00-12.00) mmol/L Calcium 8.2 L (8.7-10.3) mg/dL
[2023-09-10 07:24] VITALS: RESP 17
[2023-09-10 10:44] LABS: Basophils # (A) 0.05 X 10*3/uL (0.00-0.10); Basophils % (A) 0.4 %; Eosinophils # (A) 0.31 X 10*3/uL (0.04-0.35); Eosinophils % (A) 2.6 %; HCT 35.7 % (39.6-50.0); HGB 11.8 g/dL (13.0-17.0); Lymphocytes # (A) 1.12 X 10*3/uL (0.90-5.00); Lymphocytes % (A) 9.4 %; MCH 32.6 pg (27.0-32.0); MCHC 33.1 g/dL (32.0-37.0); MCV 98.6 FL (80.0-97.0); Mean Platelet Volume 9.1 FL (9.5-12.2); Monocytes # (A) 0.84 X 10*3/uL (0.20-1.00); Monocytes % (A) 7.1 %; NRBC Per 100 WBC 0 X 10*3/uL (0.00-0.01); Neutrophils % (A) 79.2 %; Platelet Count 321 X 10*3/uL (140-440); RBC 3.62 X 10*6/uL (4.40-5.60); RDW 12.9 % (11.5-14.5); WBC 11.87 X 10*3/uL (4.50-10.00)
--- NOTE | 2023-09-10 12:40 | P.DS ---
Providers Date of admission: 09/03/23 08:41 Expected date of discharge: 09/10/23 Attending physician: Felice Hallman Consults: 09/02/23 12:54 Consult Physician Routine Consulting Provider: Juaquin Gu Consult Reason/Comments: Medical management Do you want consulting provider notified?: Yes 09/03/23 12:36 Consult Physician Routine Consulting Provider: Alfredo Galvan Consult Reason/Comments: acute Hypoxic respiratory failure,COPD Do you want consulting provider notified?: Yes Primary care physician: Arnav Callejas Hospital Course: Discharge diagnosis 1. Acute gangrenous appendicitis with rupture 2. Urinary retention resolved 3. Postoperative ileus can be an expected complication 4. Postop Pneumonia, possible aspiration pneumonia Hospital course This is a 63 male who presented with right lower quadrant abdominal pain and workup had shown evidence of acute appendicitis. He is status post laparoscopic appendectomy for acute gangrenous appendicitis with rupture. Patient is tolerating diet. He is having bowel movements. He has been up and ambulating. Denies any difficulty urinating. He is afebrile. During his hospitalization he did have complications with a postoperative ileus and pneumonia. Patient will continue oral antibiotics outpatient for 10 more days. Patient is stable for discharge. Please refer to chart for any further details. Physician Joiner Helper note has been reviewed by physician. Signing provider agrees with the documented findings, assessment, and plan of care. Patient Condition at Discharge: Stable Plan - Discharge Summary Discharge Rx Participant: Yes New Discharge Prescriptions: New Amoxic-Pot Clav 875-125Mg [Augmentin 875-125] 1 tab PO Q12HR 10 Days #20 tab HYDROcodone/APAP 5-325MG [Lincoln 5-325] 1 tab PO Q6HR PRN 3 Days #12 tab PRN Reason: Pain Continue Tamsulosin [Flomax] 0.4 mg PO HS Citalopram Hydrobromide [CeleXA] 40 mg PO DAILY Metoprolol Tartrate [Lopressor] 100 mg PO HS Ibuprofen [Motrin] 800 mg PO TID PRN PRN Reason: Pain Famotidine [Pepcid] 20 mg PO BID Rosuvastatin [Crestor] 20 mg PO DAILY Mv-Min/Folic/K1/Lycopen/Lutein [Centrum Silver Men Tablet] 1 tab PO DAILY Discharge Medication List Citalopram Hydrobromide [CeleXA] 40 mg PO DAILY 05/09/16 [History] Tamsulosin [Flomax] 0.4 mg PO HS 05/09/16 [History] Metoprolol Tartrate [Lopressor] 100 mg PO HS 09/29/17 [History] Famotidine [Pepcid] 20 mg PO BID 02/26/22 [History] Ibuprofen [Motrin] 800 mg PO TID PRN 02/26/22 [History] Rosuvastatin [Crestor] 20 mg PO DAILY 02/26/22 [History] Mv-Min/Folic/K1/Lycopen/Lutein [Centrum Silver Men Tablet] 1 tab PO DAILY 09/02/23 [History] Amoxic-Pot Clav 875-125Mg [Augmentin 875-125] 1 tab PO Q12HR 10 Days #20 tab 09/10/23 [Rx] HYDROcodone/APAP 5-325MG [Lincoln 5-325] 1 tab PO Q6HR PRN 3 Days #12 tab 09/10/23 [Rx] Follow up Appointment(s)/Referral(s): Arnav Callejas MD [Primary Care Provider] - 1-2 days Felice Hallman MD [STAFF PHYSICIAN] - 09/11/23 2:15 pm Patient Instructions/Handouts: Ileus (GEN) Activity/Diet/Wound Care/Special Instructions: No driving while taking Lincoln No lifting over 10 pounds Shower daily. No soaking or tub baths for 2 weeks Very light activity until you are reevaluated at your follow up appointment with your surgeon Keep a log of BISHOP drain output and bring with you to your follow-up appointment Milk/strip drains 2-3 times a day Discharge Disposition: HOME SELF-CARE
[2023-09-10 13:06] VITALS: PULSE 108
--- NOTE | 2023-09-10 13:07 | P.PN ---
Subjective Progress Note Date: 09/10/23 Principal diagnosis: Acute appendicitis status post laparoscopic appendectomy postoperative day #8 This is a very pleasant 63-year-old male patient with a history of hearing diso rder, hypertension, BPH, kidney stones, anxiety/depression. Lifelong non- smoker. He had presented here to the emergency room yesterday with a 3-day history of right lower quadrant pain radiating to the right lower back. He also had issues with nausea and dry heaves. Developed chills and low-grade fever. CT scan of the abdomen revealed acute uncomplicated appendicitis. Nonobstructive right renal calculus. White count 12.5. Hemoglobin 11.8. Platelets 145. Sodium 135. Potassium 4.2. Bicarb 25. BUN 22. Creatinine 1.3. Glucose 131. He was taken to the operating room and was found to have acute gangrenous appendicitis with rupture. He had undergone a laparoscopic appendectomy. Postoperative day #1. He started out today requiring oxygen at 2 L/min per nasal cannula. Throughout the day he had becoming more short of breath and he is currently on 10 L high flow nasal cannula. He is also developed significant abdominal discomfort and distention. This is feeling higher than his surgical site pain. Chest x-ray reveals coarse perihilar infiltrates with diminutive lung volumes. More focal infiltrate right lung base. He is on bronchodilators. Antibiotics in the form of Zosyn. Lovenox for DVT prophylaxis. The patient is seen today September 04, 2023 in follow-up in the into the intensive care unit. He is currently resting fairly comfortably in bed. Awake and alert in no acute distress. He is maintaining O2 saturations in the mid 90s on 6 L high flow nasal cannula. He has been afebrile. Hemodynamically stable. Still with some right upper quadrant discomfort. Not as bad as yesterday. CT scan of the abdomen and pelvis from yesterday did reveal vicarious excretion of contrast into the gallbladder. A few gas-filled loops of bowel may indicate a limited postoperative ileus. Fairly prominent areas of consolidating pneumonia in the lung bases. Today's chest x-ray shows diminished lung volumes. Coarse perihilar infiltrates and basilar opacity persist. He is tolerating clear liquid diet. Blood cultures reveal no growth. Procalcitonin was 1.73. Troponins were negative x 2. proBNP 664. White count 11.2. Hemoglobin 11.9. Platelets 178. Sodium 132. Potassium 3.9. Bicarb 28. BUN 16. Creatinine 0.98. Glucose 106. He is continued on DuoNeb inhalations. Antibiotics in the form of Zosyn. Lovenox for DVT prophylaxis. The patient is seen today September 05, 2023 in follow-up in the intensive care unit. He is currently sitting up in bed. Awake and alert in no acute distress. He is maintaining O2 saturations in the 90s on 6 L/min per nasal cannula. He has lactated Ringer's at 125 MLS per hour. He is having bowel movements. He is tolerating clear liquid diet. He needs increased encouragement regarding the use of the incentive spirometer. Chest x-ray continues to show continued pulmonary venous congestion with bilateral infiltrates and small effusions.. White count 10.9. Hemoglobin 12.2. Platelets 220. Sodium 136. Potassium 3.8. Bicarb 25. BUN 12. Creatinine 0.79. Glucose 116. He is continued on DuoNeb ventilations. Antibiotics in the form of Zosyn. Lovenox for DVT prophylaxis. The patient is seen today September 06, 2023 in follow-up on the regular medical floor. He is resting comfortably in bed. Awake and alert in no acute distress. Maintaining O2 saturations in the 90s on 2 L/min per nasal cannula. Lactated Ringer's at 50 MLS per hour. He remains on Zosyn. Blood cultures revealed no growth. He remains on bronchodilators. Lovenox for DVT prophylaxis. No new labs today. The patient is seen today September 07, 2023 in follow-up on the regular medical floor. He is currently resting in bed. Awake and alert in no acute distress. He is maintaining O2 saturations on room air now. Nasogastric tube remains in place. He is continued on Zosyn. Normal saline at 50 MLS per hour. Lovenox for DVT prophylaxis. Abdominal x-ray reveals abdominal drainage catheter in place. Abnormal bowel gas pattern consistent with adynamic ileus or small bowel obstruction. Chest x-ray reviewed reveals nasogastric tube in place. Mild pulmonary vascular congestion. Stable. White count 8.0. Hemoglobin 12.3. Platelets 253. Sodium 139. Potassium 3.8. Bicarb 26. BUN 10. Creatinine 1.0. Glucose 103. The patient is seen today September 08, 2023 in follow-up on the regular medical floor. He is awake and alert in no acute distress. Resting fairly comfortably in bed. Nasogastric tube remains in place for his ileus. He is maintaining good O2 saturations in the upper 90s on 2 L/min per nasal cannula. Abdomen is less distended. Less tender. BISHOP drain remains in place. Incision sites clean and dry. He is having bowel movements. He remains on Zosyn. He is continued on bronchodilators. Lovenox for DVT prophylaxis. Abdominal x-ray today reveals dilated small bowel up to 4.4 cm. Overall appearance is stable which may reflect ileus versus small bowel obstruction. The patient is seen today September 09, 2023 in follow-up on the regular medical floor. He is currently sitting up in a chair at the bedside. Awake and alert in no acute distress. His nasogastric tube has been removed. He is having bowel movements. He is tolerating clear liquids. He continues to work well with his incentive spirometer. Maintaining good O2 saturations in the 90s on room air. He is afebrile. Hemodynamically stable. Blood cultures revealed no growth. White count 10.9. Hemoglobin 12.3. Platelets 317. Sodium 139. Potassium 3.9. Bicarb 26. BUN 11. Creatinine 0.9. Glucose 79. He remains on bronchodilators. Lovenox for DVT prophylaxis. Remains on Zosyn. Patient was seen today on 09/10/2023, doing well, tolerating liquids fine, no nausea no vomiting no abdominal pain, his diet is being advanced as per surgery on the case, patient may be considered for discharge planning today active pulmonary symptoms Objective - Vital Signs Vital signs: Vital Signs Temp 98.7 F 09/10/23 07:23 Pulse 88 09/10/23 12:54 Resp 17 09/10/23 07:23 BP 135/84 09/10/23 07:23 Pulse Ox 93 L 09/10/23 07:23 FiO2 Intake & Output 09/09/23 09/10/23 09/10/23 18:59 06:59 18:59 Output Total 520 70 70 Balance -520 -70 -70 Output: Gastric Drainage 400 Drainage 120 70 Anterior Medial Abdomen 120 70 Other 70 Other: Voiding Method Toilet # Voids 3 2 # Bowel Movements 1 - Exam GENERAL EXAM: Alert, 63-year-old male, up in a chair, on room air, in no acute distress. HEAD: Normocephalic. EYES: Normal reaction of pupils, equal size. NOSE: Clear with pink turbinates. THROAT: No erythema or exudates. NECK: No masses, no JVD. CHEST: No chest wall deformity. LUNGS: Equal air entry with few scattered rhonchi. CVS: S1 and S2 normal with no audible murmur, regular rhythm. ABDOMEN: Distended, tender to palpation, incision sites clean and dry. BISHOP drain in place with serosanguineous output SPINE: No scoliosis or deformity SKIN: No rashes CENTRAL NERVOUS SYSTEM: No focal deficits, tone is normal in all 4 extremities. EXTREMITIES: There is no peripheral edema. No clubbing, no cyanosis. Peripheral pulses are intact. - Labs CBC & Chem 7: 09/10/23 06:49 09/09/23 04:57 Labs: Abnormal Lab Results - Last 24 Hours (Table) 09/10/23 Range/Units 06:49 WBC 11.87 H (4.50-10.00) X 10*3/uL RBC 3.62 L (4.40-5.60) X 10*6/uL Hgb 11.8 L (13.0-17.0) g/dL Hct 35.7 L (39.6-50.0) % MCV 98.6 H (80.0-97.0) FL MCH 32.6 H (27.0-32.0) pg MPV 9.1 L (9.5-12.2) FL Immature Gran # 0.15 H (0.00-0.04) X 10*3/uL Neutrophils # 9.40 H (1.80-7.70) X 10*3/uL Assessment and Plan Assessment: Impression: Right lower quadrant abdominal pain in a patient found to have acute gangrenous appendicitis with rupture. Status laparoscopic appendectomy. Postoperative day #8 abdominal x-ray reveals abnormal bowel gas pattern consistent with adynamic ileus or small bowel obstruction. Resolved Acute hypoxemic respiratory failure secondary to low lung volumes, atelectasis due to shallow respirations due to pain, possible aspiration pneumonia, remains on Zosyn Leukocytosis secondary to above History of hearing disorder Benign prostatic hyperplasia Hyperlipidemia Hypertension Anxiety/depression Commendation: Continue incentive spirometry Continue ambulation Advance diet as tolerated Continue bronchodilators Will clear for discharge if cleared by other consultants Time with Patient: Less than 30
[2023-09-10 13:29] VITALS: BP 137/85; TEMP 97.4
== END 2023-09-10 14:49 | disposition home or self-care (01) | DRG 397 ==
LOC: EC 09:51 → 5NMEDONC 11:37 → 4SSUR 11:37 → UNDOADMOB 11:37 → 5NMEDONC 13:18 → 4SSUR 13:18 → OBSVTOIN 09-03 08:41 → INTOOBSV 09-03 08:41 → 2SICU 09-03 15:23 → 4SSUR 09-05 12:36
PROVIDERS: ADMIT Surgery; ATTEND Surgery
PROC: 0DTJ4ZZ Resection of Appendix, Percutaneous Endoscopic Approach (ICD-10-PCS; principal; 2023-09-02 12:05)
PROC: 0D9670Z Drainage of Stomach with Drainage Device, Via Natural or Artificial Opening (ICD-10-PCS; 2023-09-07)
DX: K35.32 Acute appendicitis with perforation, localized peritonitis, and gangrene, without abscess (principal); J69.0 Pneumonitis due to inhalation of food and vomit; J96.01 Acute respiratory failure with hypoxia; N17.9 Acute kidney failure, unspecified; K56.0 Paralytic ileus; J98.11 Atelectasis; I10 Essential (primary) hypertension; J44.9 Chronic obstructive pulmonary disease, unspecified; D64.9 Anemia, unspecified; F32.A Depression, unspecified; N40.1 Benign prostatic hyperplasia with lower urinary tract symptoms; R33.8 Other retention of urine; E78.5 Hyperlipidemia, unspecified; N20.0 Calculus of kidney; F41.9 Anxiety disorder, unspecified; H91.90 Unspecified hearing loss, unspecified ear; Z79.899 Other long term (current) drug therapy
CPT/HCPCS: 36415; 71045; 74018; 74019; 74176; 74177; 80048; 80053; 81003; 82150; 83605; 83690; 83880; 84145; 84484; 85025; 87040; 88304; 94640; 94760; 96361; 96374; 96375; 99285

== ENCOUNTER → 2023-10-15 | Outpatient (CLI) | payer BC ==
[2023-10-15 15:30] LABS: Basophils # (A) 0.12 X 10*3/uL (0.00-0.10); Basophils % (A) 2.1 %; Eosinophils # (A) 0.33 X 10*3/uL (0.04-0.35); Eosinophils % (A) 5.8 %; HCT 42.3 % (39.6-50.0); Lymphocytes # (A) 1.89 X 10*3/uL (0.90-5.00); Lymphocytes % (A) 33.3 %; MCH 32.1 pg (27.0-32.0); MCHC 33.1 g/dL (32.0-37.0); Mean Platelet Volume 9.7 FL (9.5-12.2); Monocytes # (A) 0.46 X 10*3/uL (0.20-1.00); Monocytes % (A) 8.1 %; NRBC Per 100 WBC 0 X 10*3/uL (0.00-0.01); Neutrophils # (A) 2.87 X 10*3/uL (1.80-7.70); Neutrophils % (A) 50.5 %; Platelet Count 211 X 10*3/uL (140-440); RBC 4.36 X 10*6/uL (4.40-5.60); RDW 12.7 % (11.5-14.5); WBC 5.68 X 10*3/uL (4.50-10.00)
== END | disposition home or self-care (01) ==
LOC: LABPAT 10:01
PROVIDERS: ATTEND Surgery
DX: Z01.818 Encounter for other preprocedural examination
CPT/HCPCS: 36415; 85025; 93005

== ENCOUNTER → 2023-10-17 | Outpatient (CLI) | payer BC | END | disposition home or self-care (01) | LOC: LABPAT 11:48 | PROVIDERS: ATTEND Surgery | DX: Z01.818 Encounter for other preprocedural examination | CPT/HCPCS: 86850; 86900; 86901 ==

== ENCOUNTER → 2023-10-28 | Day surgery (SDC) | payer BC ==
[~2023-10-28] MED LIST changes: +DEXAMETHASONE SOD PHOSPHATE 4 MG/ML 1 ML VIAL ONE; +GLYCOPYRROLATE 0.2 MG/ML 2 ML VIAL ONE; +HYDROmorphone 0.5 MG/0.5 ML SYRINGE IVP PRN; +KETAMINE HCL IN 0.9 % NACL 50 MG/5 ML SYRINGE ONE; +KETOROLAC 15 MG/ML 1 ML VIAL ONE; -LACTATED RINGERS 1,000 ML IV SCH; +LIDOCAINE 1% (10MG/ML) FOR IV START INTRADERMA PRN; +LIDOCAINE 1% INJ 10MG/ML (20 ML MDV) ONE; +MIDAZOLAM 2 MG/2 ML VIAL ONE; +NEOSTIGMINE 1 MG/ML 10 ML VIAL ONE; +PHENYLEPHRINE-0.9% NACL SYG 1,000 MCG/10 ML SYRINGE ONE; +PROPOFOL 10 MG/ML 20 ML VIAL IV ONE; +ROCURONIUM 10 MG/ML (5 ML VIAL) IV ONE; +ROPIVACAINE 5 MG/ML 30 ML VIAL ONE; +SUCCINYLCHOLINE CHLORIDE 200 MG/10 ML VIAL IV ONE; +fentaNYL (PF) 50 MCG/ML 2 ML AMP ONE
[2023-10-28] MEDS: IV FLUID CONTINUATION 1,000 ML IV ONE ×2 (06:57→13:15)
[2023-10-28] MEDS: ONDANSETRON 4 MG/2 ML VIAL IVP ONE (07:26)
[2023-10-28] MEDS: ACETAMINOPHEN TAB 500 MG TAB PO PRN (07:26)
[2023-10-28] MEDS: LACTATED RINGERS 1,000 ML IV SCH (07:27)
[2023-10-28] MEDS: DEXAMETHASONE SOD PHOSPHATE 4 MG/ML 1 ML VIAL IVP STA (07:27)
[2023-10-28] MEDS: MIDAZOLAM 2 MG/2 ML VIAL IV PRN (07:51)
--- NOTE | 2023-10-28 08:04 | P.ANPRN ---
Procedure Note - Anesthesia - Nerve Block Performed Bilateral Erector Spinae Single Time Out Performed: Yes Date of Procedure: 10/28/23 Procedure Start Time: 07:51 Procedure Stop Time: 07:59 Location of Patient: PreOp Indication: Acute Post-Operative Pain, Analgesia, Requested by Surgeon Sedation Type: Sedate with meaningful contact maintained Preparation: Sterile Prep Position: Prone Catheter: None Needle Types: Pajunk Needle Gauge: 21 Ultrasound used to visualize needle placement: Yes Ultrasound used to observe medication spread: Yes Injectate: 0.5% Ropivacaine (see comment for volume) (Ropi 20ml+Decadron 4mg--Each side. T7 level bilat.AttemptX1) Blood Aspirated: No Pain Paresthesia on Injection Noted: No Resistance on Injection: Normal Image Stored and Saved: Yes Events: Uneventful and Well Tolerated
[2023-10-28] MEDS: HEPARIN SODIUM,PORCINE 5,000 UNIT/ML 1 ML VIAL SQ PRN (08:18)
[2023-10-28] MEDS: LIDOCAINE 1%-EPI 1:100,000 20 ML VIAL SQ ONE (09:04)
--- NOTE | 2023-10-28 10:00 | P.OP ---
Date of Procedure: 10/28/23 Preoperative Diagnosis: Ventral hernia Postoperative Diagnosis: Incisional hernia Procedure(s) Performed: Laparoscopic robot-assisted pair of incisional hernia Partial omentectomy Transversus abdominis plane block Anesthesia: JOHNY Surgeon: Felice Hallman Pathology: other (omentum m/hernia sac) Condition: stable Disposition: PACU Operative Findings: 5 cm hernia Description of Procedure: The patient was placed on the operating table in the supine position. He received general anesthesia. His abdomen was prepped and draped usual fashion. Using a 5 mm optical trocar under direct visualization the peritoneal cavity was entered infraumbilical position. After adequate insufflation a millimeter robotic trocars placed in the right and left lower quadrant. And then the original trocar was exchanged for a 12 mm trocar. A four-quadrant transversus abdominis plane block was performed 1% local Xylocaine. The patient's placed in the left side up position. And the patient was docked to the robot. The incisional hernia was visualized. It was located in the epigastric area. Hernia measured approximately 5 cm diameter. Using hook cautery the peritoneum over the incisional hernia was excised. The fascial opening was repaired using 0V LOC suture. Next a piece of 11 cm round ventral light ST mesh was placed into the. Cavity and secured with 2 OV lock suture. The patient was undocked the robot. The needles were retrieved. The fascia of the 12 mm trocar site was closed with 0 Ethibond suture. Skin was closed interrupted 3-0 Monocryl suture. Dermabond dressings was applied. Patient tolerated procedure well and was sent to recovery room stable condition.
[2023-10-28 10:01] VITALS: TEMP 97.5
[2023-10-28] MEDS: TAMSULOSIN 0.4 MG CAP.ER.24H PO STA (12:41)
[2023-10-28 13:54] VITALS: RESP 14
[2023-10-28 14:48] VITALS: BP 103/67; PULSE 73
== END ==
LOC: OR 06:48
PROVIDERS: ATTEND Surgery
DX: K43.2 Incisional hernia without obstruction or gangrene (principal); G89.18 Other acute postprocedural pain; I10 Essential (primary) hypertension; E78.5 Hyperlipidemia, unspecified; H91.90 Unspecified hearing loss, unspecified ear; F41.8 Other specified anxiety disorders; Z90.49 Acquired absence of other specified parts of digestive tract; Z79.899 Other long term (current) drug therapy; Z98.890 Other specified postprocedural states
CPT/HCPCS: 49593; S2900; 64999; 88302